=== PATIENT | male | born 1945 | race Caucasian/White ===

== ENCOUNTER 2016-08-25 13:48 | Inpatient (IN) | payer MEDICARE ==
[~2016-08-25] VITALS: Ht 179.1 cm; Wt 139.4 kg
[~2016-08-25 13:48] MED LIST: BISA5TAB12 PO; CITA40TA PO; CLONAZEPAM0.5 M1 PO; DOCU-42 PO; DUL10S RC; FURO-3 PO; ISOS60TA2 PO; LEVOXYL75 MCG PO; METH500T7 PO; NITR0.4T SL; PREG50 PO; QUET50TA PO; RANI150T13 PO; TOP200 PO; WARF6TAB2 PO; ZOC20 PO; [UNRECOGNIZED DRUG - CODE] PO; amlodipine PO
--- NOTE | 2016-08-25 14:16 | ED.REPORT ---
HPI-General Illness Date of Service Aug 25, 2016 ED Provider: Azeb Flores MD This is a 71 year old male with a history of CAD, NE, HTN, hyperlipidemia, PE, GERD, hypothyroidism, and venous insufficiency presenting to the emergency department via EMS from urgent care due to worsening shortness of breath that began 2 days ago. SOB is worse with lying position. Denies lower extremity swelling, chest pain, cough, nausea, abdominal pain, diarrhea, constipation, fever, or chills at this time. Nursing Notes Stated Complaint: SOB Nursing Notes Reviewed: Yes Allergies: Coded Allergies: vancomycin (Verified Allergy, Severe, renal failure, 11/15/15) bacitracin (Verified Allergy, Intermediate, makes the rash worse, 11/15/15) neomycin (Verified Allergy, Intermediate, makes the rash worse, 11/15/15) polymyxin B (Verified Allergy, Intermediate, makes the rash worse, 11/15/15) codeine (Verified Adverse Reaction, Mild, hyper, 02/17/11) Scheduled Amlodipine (Amlodipine) 5 Mg Tablet 5 MG PO DAILY Citalopram (Citalopram) 20 Mg Tablet 20 MG PO HS Clonazepam (Clonazepam) 0.5 Mg Tablet 0.5 MG PO HS Furosemide (Furosemide) 40 Mg Tablet 40 MG PO DAILY Isosorbide MN ER (Isosorbide MN ER) 60 Mg Tab.er.24h 60 MG PO DAILY Levothyroxine (Levothyroxine) 75 Mcg Tablet 75 MCG PO QAM Methocarbamol (Methocarbamol) 500 Mg Tablet 500 MG PO HS Metoprolol Succinate ER (Metoprolol Succinate ER) 200 Mg Tab.er.24h 200 MG PO HS Pregabalin (Lyrica) 50 Mg Capsule 50 MG PO HS Quetiapine Fumarate (Quetiapine Fumarate) 50 Mg Tablet 50 MG PO HS Ranitidine (Ranitidine) 150 Mg Capsule 150 MG PO HS Simvastatin (Simvastatin) 20 Mg Tablet 20 MG PO HS Warfarin Sodium (Warfarin Sodium) 10 Mg Tablet 10 MG PO QAM *TAKES IN AM Scheduled PRN Bisacodyl (Dulcolax) 5 Mg Tablet.dr 10 MG PO DAILY PRN PRN For Constipation Bisacodyl (Dulcolax Rectal) 10 Mg Supp.rect 10 MG RC DAILY PRN PRN For Constipation Loperamide (Loperamide) 2 Mg Tablet 2 MG PO Q4H PRN PRN For Diarrhea or Loose Stool Nitroglycerin SL (Nitroglycerin SL) 0.4 Mg Tab.subl 0.4 MG SL Q5MIN PRN PRN For Chest Pain General Time Seen by MD: 14:13 Chief Complaint Other Hx Obtained From: Patient Arrived By: Ambulance Sudden in Onset?: Yes Onset Occurred: 2 days ago Symptom Duration: Since onset Severity: Current: No pain currently Pertinent Negative: Pt denies other symptoms Recent Healthcare: No recent doctor visit, No recent hospitalization Similar Sx Previous: No Past Medical History Past Medical History 1. Coronary artery disease. 2. Prior NE. 3. Hypertension. 4. Hyperlipidemia. 5. PE 2 secondary to lupus anticoagulant on chronic warfarin (last PE 2008). 6. GERD. 7. Osteoarthritis. 8. Spinal stenosis. 9. Depression and anxiety. 10. OCD. 11. Peripheral neuropathy. 12. Hypothyroidism. 13. Insomnia. 14. Venous insufficiency. Past Surgical History 1. Left total knee arthroplasty. 2. Left rotator cuff repair. 3. Left humerus ORIF. 4. Coronary stenting 1. 5. Tonsillectomy. 6. Right hernia repair. 7. Left RFA. Family History Father who of atherosclerosis at the age of 44. Mother who of Alzheimer's disease. Sister with COPD. Smoking History Never Smoker Social History Alcohol Use: 1-3 per week Drug Use: Denies drug use Other Social History: Good social support, , Local resident Ambulatory Status Independent Review of Systems Full Review of Systems Constitutional: Denies: Chills, Fever Respiratory: Reports: Shortness of breath, Denies: Non-productive cough Cardiovascular: Denies: Chest pain GI: Denies: Abdominal pain, Nausea, Vomiting Male: Denies Dysuria Musculoskeletal: Denies: Back pain Neurologic: Denies: Headache Complete sys rev & neg: except as marked. Physical Exam Vital Signs Vital Signs Date Time Temp Pulse Resp B/P Pulse Ox O2 Delivery O2 Flow Rate FiO2 08/25/16 16:36 36.6 52 20 146/56 94 Room Air 08/25/16 14:19 36.3 51 18 147/58 98 Nasal Cannula 3 - Initial VS: Reviewed General/Constitutional: Well-developed, Well-nourished Head / Eyes: Atraumatic, Normocephalic, PERRL ENT: Mucous membranes moist, Conjunctiva normal, No scleral icterus Neck: Supple, Non-tender, Full range of motion Abdomen / GI: Soft, Non-tender, No guarding, No rebound, No distention Extremities: Vascular intact, Neuro intact, No tenderness Skin: Warm, Dry, No cyanosis Neurologic: Alert, Oriented, Nonfocal Psychiatric: Mood/affect normal, Behavior normal, Normal thought content Respiratory / Chest: No wheezing, No chest tenderness Cardiovascular: Regular rhythm, Heart sounds NL, No murmurs Lower Ext Edema: Positive: Bilateral 3+ Interpretation & Diagnostics Lab Results Interpretation Result Diagram: 08/26/16 0540 08/26/16 0540 Test 08/25/16 15:33 08/25/16 15:55 Troponin T < 0.010ug/L (0.0-0.011) Urine Color Yellow (YELLOW) Urine Appearance Clear (CLEAR,HAZY) Urine pH 6.0 (5.0-8.0) Urine Specific [place] 1.010 (1.003-1.035) Urine Protein Negativemg/dL (NEG,TRACE) Urine Glucose (UA) Negativemg/dL (NEGATIVE) Urine Ketones Negativemg/dL (NEGATIVE) Urine Occult Blood Small (NEGATIVE) Urine Nitrite Negative (NEGATIVE) Urine Bilirubin Negative (NEGATIVE) Urine Urobilinogen Normalmg/dL (NORMAL) Urine Leukocyte Esterase Negative (NEGATIVE) Urine RBC 3-10/hpf (0-2) Urine WBC 0-5/hpf (0-5) Urine Epithelial Cells Few/hpf (NONE-MOD) Urine Crystals None seen (NONE SEEN) Urine Bacteria Few/hpf (NONE-FEW) Urine Hyaline Casts None/lpf (NONE) Urine Granular Casts None seen (NONE SEEN) Urine Waxy Casts None seen (NONE SEEN) Urine Red Blood Cell Casts None seen (NONE SEEN) Urine White Blood Cell Casts None seen (NONE SEEN) Urine Mucus None seen (None Seen) Urine Trichomonas None seen (NONE SEEN) Urine Yeast None (NONE SEEN) Urinalysis Comment None Urine Culture Reflexed Not indicated ECG Interpretation ECG Interpretation: NSR at a rate of 51 Atrial premature complex Borderline prolonged FL interval Time: 15:07 X-Ray Chest Interpretation Chest Xray Interpretation: IMPRESSION: Bibasilar atelectasis versus pneumonia. Dictated by: Florinda Earl MD, PhD on 08/25/2016 at 15:32 Approved by: Florinda Earl MD, PhD on 08/25/2016 at 15:33 Re-Eval/Medical Decision Med Decision/Clinical Course presents with increased dyspnea, othopnea, elevated BNP and CXR suggestive of acute CHF. As this would be a new diagnosis of CHF, hospitalization and additional workup is warrented. Time of Eval: 17:07 Re-Evaluation/Progress Note: Discussed need for admission, all questions addressed. Consultation : Referral / Consult Name: Paul Cabrera MD Consulted With: Hospitalist Call Returned at: 17:22 Manager Balance: Accepts admit Counseled Regarding: Diagnosis, Lab results, Need for follow-up, Need for admission Discharge & Departure Primary Impression: Acute heart failure Heart failure type: unspecified heart failure type Qualified Code: I50.9 - Heart failure, unspecified Additional Impression: Chronic renal insufficiency Chronic kidney disease stage: unspecified stage Qualified Code: N18.9 - Chronic kidney disease, unspecified Disposition: ADMITTED TO HOSPITAL Discharge Condition All VS Reviewed: Yes Condition: Stable Referrals: Murphy Muñoz MD (PCP) Scribe Attestation Portions of this note were transcribed by Ismael Blood. I, Dr. Flores personally performed the history, physical exam and medical decision-making; I reviewed and confirmed the accuracy of the information in the transcribed note. Signed by: emory Reed. 08/25/2016, 18:00. copies to: Murphy Muñoz MD, Shawna L MD Aug 25, 2016 14:16 ISMAEL BLOOD Aug 25, 2016 14:20 (NEGATIVE) Urine Occult Blood Small (NEGATIVE) Urine Nitrite Negative (NEGATIVE) Urine Bilirubin Negative (NEGATIVE) Urine Urobilinogen Normalmg/dL (NORMAL) Urine Leukocyte Esterase Negative (NEGATIVE) Urine RBC 3-10/hpf (0-2) Urine WBC 0-5/hpf (0-5) Urine Epithelial Cells Few/hpf (NONE-MOD) Urine Crystals None seen (NONE SEEN) Urine Bacteria Few/hpf (NONE-FEW) Urine Hyaline Casts None/lpf (NONE) Urine Granular Casts None seen (NONE SEEN) Urine Waxy Casts None seen (NONE SEEN) Urine Red Blood Cell Casts None seen (NONE SEEN) Urine White Blood Cell Casts None seen (NONE SEEN) Urine Mucus None seen (None Seen) Urine Trichomonas None seen (NONE SEEN) Urine Yeast None (NONE SEEN) Urinalysis Comment None Urine Culture Reflexed Not indicated ECG Interpretation ECG Interpretation: NSR at a rate of 51 Atrial premature complex Borderline prolonged FL interval Time: 15:07 X-Ray Chest Interpretation Chest Xray Interpretation: IMPRESSION: Bibasilar atelectasis versus pneumonia. Dictated by: Florinda Earl MD, PhD on 08/25/2016 at 15:32 Approved by: Florinda Earl MD, PhD on 08/25/2016 at 15:33 Re-Eval/Medical Decision Time of Eval: 17:07 Re-Evaluation/Progress Note: Discussed need for admission, all questions addressed. Consultation : Referral / Consult Name: Paul Cabrera MD Consulted With: Hospitalist Call Returned at: 17:22 Manager Balance: Accepts admit Counseled Regarding: Diagnosis, Lab results, Need for follow-up, Need for admission Discharge & Departure Primary Impression: Acute heart failure Heart failure type: unspecified heart failure type Qualified Code: I50.9 - Heart failure, unspecified Additional Impression: Chronic renal insufficiency Chronic kidney disease stage: unspecified stage Qualified Code: N18.9 - Chronic kidney disease, unspecified Disposition: ADMITTED TO HOSPITAL Discharge Condition All VS Reviewed: Yes Condition: Stable Referrals: Murphy Muñoz MD (PCP) Scribe Attestation Portions of this note were transcribed by Ismael Blood. I, Dr. Flores personally performed the history, physical exam and medical decision-making; I reviewed and confirmed the accuracy of the information in the transcribed note. Signed by: emory Reed. 08/25/2016, 18:00. copies to: Murphy Muñoz MD, Shawna L MD Aug 25, 2016 14:16 ISMAEL BLOOD Aug 25, 2016 14:20
[2016-08-25 14:19] VITALS: BP 147/58; PULSE 51; RESP 18; O2SAT 98
--- NOTE | 2016-08-25 15:35 | DRSVH ---
PROCEDURE: X-RAY CHEST ONE VIEW, PORTABLE ([id number]) INDICATIONS: SOB TECHNIQUE: One view of the chest was acquired. COMPARISON: [facility], , CHEST 1VW (PORTABLE), 07/19/2011, 17:25. FINDINGS: Surgical changes and devices: Left shoulder arthroplasty. Lungs and pleura: No pleural effusions or pneumothorax. Bibasilar lung opacities are noted right gre ater than left which could represent atelectasis versus pneumonia. Elevation right hemidiaphragm stab le compared to prior examination. Mediastinum: Mediastinal contours appear normal. Heart size is normal. Bones and chest wall: No suspicious bony lesions. Overlying soft tissues appear unremarkable. IMPRESSION: Bibasilar atelectasis versus pneumonia. Dictated by: Florinda Earl MD, PhD on 08/25/2016 at 15:32 Approved by: Florinda Earl MD, PhD on 08/25/2016 at 15:33
[2016-08-25 15:52] LABS: BASOPHILS % (AUTO) 0.5 % (0-3); EOSINOPHILS % (AUTO) 1.8 % (0-5); MONOCYTES % (AUTO) 13.6 % (4-12); Mean Corpuscular Hemoglobin 30.7 pg (27.0-35.0); Mean Corpuscular Volume 94.8 fL (81-100); NEUTROPHILS % (AUTO) 64.7 % (40-74); Platelet Count 146 bil/L (150-400)
[2016-08-25 16:02] LABS: INR 1.89 ratio
[2016-08-25 16:13] LABS: TROPONIN T < 0.010 ug/L (0.0-0.011)
[2016-08-25 16:35] LABS: APPEARANCE,URINE CLEAR (CLEAR,HAZY); COLOR,URINE YELLOW (YELLOW); OCCULT BLOOD,URINE SMALL (NEGATIVE); UROBILINOGEN,URINE NORMAL (NORMAL)
[2016-08-25 16:36] VITALS: BP 146/56; PULSE 52; RESP 20; O2SAT 94
--- NOTE | 2016-08-25 17:53 | PCM.HPMED ---
Subjective Date of Service Aug 25, 2016 Primary Provider: Admitting Physician: Primary Care Physician: Valeri Zhou DO Attending Physician: Chief Complaint: Shortness of breath History of Present Illness: This is a severely is a male with past medical history of coronary artery disease and AL, obesity, hypertension, stage III CKD, hyperlipidemia, pulmonary embolus x 2 on Coumadin. Patient presented to the Hospital clinic about shortness of breath does not going on for a week or so . His today shortness of breath this was last past 2 days. He endorsed orthopnea, dyspnea on minimal exertion. She came he has gained approximately 10 pounds over the last class 2-3 weeks and has been complaining of lower extremity swelling as well. He said he did not seek medical attention initially because of shortness of breath was not that bad. He denied any chest pain, fever, chills, abdominal pain, nausea, vomiting.. ER work up shows elevated BNP, patient hypoxic on presentation with oxygen saturation around 80% , then improve with oxygen 2 L nasal cannula. Patient has no previous history of heart failure. Review of Systems: Review of systems is pertinent for shortness of breath, orthopnea, dyspnea on exertion, lower extremity swelling as described above in history of present illness otherwise a comprehensive review x 12 points is negative Allergies Coded Allergies: vancomycin (Verified Allergy, Severe, renal failure, 11/15/15) bacitracin (Verified Allergy, Intermediate, makes the rash worse, 11/15/15) neomycin (Verified Allergy, Intermediate, makes the rash worse, 11/15/15) polymyxin B (Verified Allergy, Intermediate, makes the rash worse, 11/15/15) codeine (Verified Adverse Reaction, Mild, hyper, 02/17/11) Home Medications Scheduled ([amlodipine]) 5 MG PO BID Bisacodyl-Expunged Drug, Do Not Renew! (Bisacodyl-Expunged Drug, Do Not Renew!) 10 Mg Supp 10 MG RC PRN Citalopram-Expunged Drug, Do Not Renew! (Citalopram-Expunged Drug, Do Not Renew! ) 40 Mg Tablet 20 MG PO DAILY Docusate Sod-Expunged Drug, Do Not Renew! (Docusate Sod-Expunged Drug, Do Not Renew!) 100 Mg Capsule 100 MG PO BID Furosemide-Expunged Drug, Do Not Renew! (Furosemide-Expunged Drug, Do Not Renew! ) 40 Mg Tablet 40 MG PO DAILY 40 MG DAILY Isosorbide [place]-Expunged Drug, Do Not Renew! (Isosorbide [place]-Expunged Drug, Do Not Renew!) 60 Mg Tab.sr.24h 60 MG PO DAILY Levothyroxine-Expunged Drug, Do Not Renew! (Levoxyl-Expunged Drug, Do Not Renew! ) 75 Mcg Tablet 75 MCG PO DAILY Methocarbamol-Expunged Drug, Do Not Renew! (Methocarbamol-Expunged Drug, Do Not Renew!) 500 Mg Tablet 500 MG PO DAILY Metoprolol Suc-Expunged Drug, Do Not Renew! (Metoprolol Suc-Expunged Drug, Do Not Renew!) 200 Mg Tab.sr.24h 200 MG PO DAILY Pregabalin-Expunged Drug, Do Not Renew! (Lyrica-Expunged Drug, Do Not Renew!) 50 Mg Capsule 50 MG PO DAILY Quetiapine-Expunged Drug, Do Not Renew! (Seroquel-Expunged Drug, Do Not Renew!) 50 Mg Tablet 50 MG PO HS Ranitidine Hcl (Zantac) 150 Mg Tablet 150 MG PO DAILY Simvastatin-Expunged Drug, Choose New Med! (Simvastatin-Expunged Drug, Choose New Med!) 20 Mg Tablet 20 MG PO HS Warfarin Sodium Inactive Drug Do Not Use (Coumadin Inactive Drug Do Not Use) 6 Mg Tablet 7.5 MG PO DAILY ALTERNATES BETWEEN 7.5MG AND 10MG DEPENDING ON INR clonazePAM-Expunged Drug, Do Not Renew! (clonazePAM-Expunged Drug, Do Not Renew! ) 0.5 Mg Tablet 0.5 MG PO PRN Scheduled PRN Bisacodyl-Expunged Drug, Do Not Renew! (Bisacodyl-Expunged Drug, Do Not Renew!) 5 Mg Tablet 5 MG PO DAILY PRN PRN Loperamide-Expunged Drug, Do Not Renew! (Imodium-Expunged Drug, Do Not Renew!) 2 Mg Cap 2 MG PO PRN Give 2 caps (4mg) by mouth after 1st diarrhea stool as needed, and then 1 cap as needed after each subsequent loose BM (not to exceed 6 caps/24hrs) Nitroglycerin-Expunged Drug, Do Not Renew! (Nitroglycerin SL-Expunged Drug, Do Not Renew!) 0.4 Mg Tab.subl 0.4 MG SL PRN PMH 1. Coronary artery disease. 2. Prior AL. 3. Hypertension. 4. Hyperlipidemia. 5. PE 2 secondary to lupus anticoagulant on chronic warfarin (last PE 2008). 6. GERD. 7. Osteoarthritis. 8. Spinal stenosis. 9. Depression and anxiety. 10. OCD. 11. Peripheral neuropathy. 12. Hypothyroidism. 13. Insomnia. 14. Venous insufficiency. Surgical History 1. Left total knee arthroplasty. 2. Left rotator cuff repair. 3. Left humerus ORIF. 4. Coronary stenting 1. 5. Tonsillectomy. 6. Right hernia repair. 7. Left RFA. Family History Father who of atherosclerosis at the age of 44. Mother who of Alzheimer's disease. Sister with COPD. Social History Hx Alcohol Use: Yes (MAYBE THREE TIMES A WEEK) Hx Substance Use: No Hx Tobacco Use: No Smoking Status: Never Smoker Living Arrangement: with Family Exam Vital Signs Vital Sign - Last Date Time Temp Pulse Resp B/P Pulse Ox O2 Delivery O2 Flow Rate FiO2 08/25/16 16:36 36.6 52 20 146/56 94 Room Air 08/25/16 14:19 3 Exam General/Constitutional: Obese male, and stretcher comfortably. On oxygen per nasal cannula and able to speak in full sentences Head / Eyes: Atraumatic, Normocephalic, PERRL, sclerae anicteric Mouth: Mucous membranes moist Neck: Supple, Non-tender, Full range of motion. No JVD, trachea is midline Chest : No chest wall tenderness, normal respiratory efforts Lungs: No wheezing, bilateral fine crackles in the basilar area Cardiovascular: Regular rhythm, Heart sounds NL, No murmurs Abdomen / GI: Obese, Soft, Non-tender, No guarding, No rebound, No distention Extremities: Chronic venous stasis changes, no calf tenderness. 2+ edema a bilaterally Skin: Warm, Dry, No cyanosis Neurologic: Alert, Oriented, grossly Nonfocal Lab and Diagnostics Result Diagram: 08/25/16 1533 08/25/16 1533 X-Rays, CTs and MRIs Checks x-ray personally reviewed. Report noted: Bibasilar atelectasis versus pneumonia. Assessment & Plan 1. Acute systolic failure with hypoxia 2. Suspected systolic heart failure 3. Bilateral lower extremity edema 4. Elevated BNP 5. Bilateral basilar artery passes versus pneumonia Chronic medical issues 1. Coronary artery disease. 2. Prior AL. 3. Hypertension. 4. Hyperlipidemia. 5. PE 2 secondary to lupus anticoagulant on chronic warfarin (last PE 2008). 6. GERD. 7. Osteoarthritis. 8. Spinal stenosis. 9. Depression and anxiety. 10. OCD. 11. Peripheral neuropathy. 12. Hypothyroidism. 13. Insomnia. 14. Venous insufficiency. 15 : CKD stage III Admitting patient for hypoxic respiratory failure and suspected new onset of systolic heart failure. Chest x-ray reviewed and show bilateral atelectasis versus pneumonia, but patient has no clinical evidence of pneumonia. Telemetry monitoring. Strict I's and O, daily weight, fluid restriction to 2 L daily. Start diuretics : Furosemide 40 mg IV twice a day. Monitor electrolyte and renal function closely. Patient has nonrestorative CTD stage III. Baseline creatinine is around 1.8-2 Obtain 2-D echocardiogram. Consider cardiology evaluation if low ER. Add ARB or ACEI accordingly ,.Patient on BB and statins from home. Obtain TSH, and hemoglobin A1c, lipid profile. Patient with history of PE on Coumadin. INR non therapeutic ( 1.8) . Continue Coumadin per pharmacy Home medications reviewed and reconciled ( See orders) Code status : Full code . Initial plan of care is as above and to be adjusted as per clinical course Pain Evaluation: Adequate Pain Control Resuscitation Status: CPR: Attempt Resuscitation Time spent 75 minutes Paul Cabrera MD Aug 25, 2016 17:53
[2016-08-25] MEDS ORDERED: AMLO5TAB2 PO (18:55)
[2016-08-25] MEDS ORDERED: WARF10TA4 PO (18:55)
[2016-08-25] MEDS ORDERED: LEVO75TA4 PO (18:57)
[2016-08-25] MEDS ORDERED: FURO40TA4 PO (18:57)
[2016-08-25] MEDS ORDERED: KLO5T PO (18:57)
[2016-08-25] MEDS ORDERED: CITA20TA11 PO (18:57)
[2016-08-25] MEDS ORDERED: ISOS60TA2 PO (18:57)
[2016-08-25] MEDS ORDERED: ROB500 PO (19:00)
[2016-08-25] MEDS ORDERED: RANI150C4 PO (19:00)
[2016-08-25] MEDS ORDERED: QUET50TA55 PO (19:00)
[2016-08-25] MEDS ORDERED: SIMV20TA4 PO (19:00)
[2016-08-25] MEDS ORDERED: LOPE2TAB32 PO (19:00)
[2016-08-25] MEDS ORDERED: METO200T32 PO (19:00)
[2016-08-25] MEDS ORDERED: PREG75CA PO (19:00)
[2016-08-25] MEDS ORDERED: NITR0.4T6 SL (19:01)
[2016-08-25] MEDS ORDERED: PREG50CA PO (19:01)
[2016-08-25] MEDS ORDERED: BISA-67 PO (19:03)
[2016-08-25] MEDS ORDERED: BISA10SU61 RC (19:03)
[2016-08-25 20:11] VITALS: BP 186/86; PULSE 53; RESP 20; O2SAT 93
--- NOTE | 2016-08-25 20:41 | PCM.PHAPRO ---
Progress Date of Service: Aug 25, 2016 Shortness of breath Warfarin Management Per Pharmacy: Indication: Thromboprophylaixs as patient has history of pulmonary embolism x 2 Goal INR: 2-3 Home Dose: Warfarin 10 mg PO daily (pt states it is a white pill) Labs: Hgb/Hct: 12.4/38.3 Plt: 146 INR: 1.89 Drug Interactions: None Drug Disease Interactions: CHF exacerbation, no liver enzyme elevation Antiplatelets: None Bleeding: No Recommendation: INR is subtherapeutic. Patient to receive an additional 4 mg tonight (14 mg total accounting for the 10 mg patient took in the AM). Pharmacy to continue to monitor and adjust warfarin as needed. INR ordered daily. Thank You, Linda Stevenson, Pharm D. Linda Stevenson Aug 25, 2016 20:41
[2016-08-25] MEDS: Furosemide 10 mg/mL 4 mL Inj IVPUSH SCH (21:20)
[2016-08-25 21:54] VITALS: PULSE 58
[2016-08-26] VITALS (9 sets, daily range): BP systolic 154–184; BP diastolic 71–93; PULSE 55–64; RESP 17–20; O2SAT 91–95
--- NOTE | 2016-08-26 02:50 | NUR ---
Arrival to Room 1020 Patient arrived to room 1020 at 1920 via [facility] accompanied by ED staff. Patient alert and oriented x3. Patient is hypertensive but asymptomatic. Patient requested crackers and juice. No n/v. Lasix 40mg IVP administered . Patient oriented to room. Patient states no pain.Call light within reach. Care continues.
--- NOTE | 2016-08-26 06:08 | PCM.PNMED ---
Subjective Date of Service Aug 26, 2016 Subjective patient states he was sick with flu like illness 2 weeks ago, feels he has fully recovered. He has been dyspneic for 5 days. Never had CHF exacerbation before. Sees Dr. Silveira. Says he had good UOP last night (2.3L per records). He feels his 2015 echo was "good". He has had a stent put in after PR in 1999. At baseline only walks a block due to knee and back pain. He denies fevers, diarrhea, nausea, constipation. States he was able to lay flat on his bed this morning, 2 days ago he could not. Exam Vital Signs Vital Sign - Last Date Time Temp Pulse Resp B/P Pulse Ox O2 Delivery O2 Flow Rate FiO2 08/26/16 04:33 36.5 62 20 184/93 92 Room Air 08/26/16 00:22 1.00 Intake and Output 08/25/16 08/25/16 08/26/16 Cumulative From/Thru 15:00 23:00 07:00 08/25/16 14:19 - 08/25/16 21:20 Output Total 500 ml 500 ml Balance -500 ml -500 ml Output Urine Total 500 ml 500 ml # Voids 1 1 Exam General: NAD HEENT: NCAT Heart: 2+ systolic murmur with radiation to neck, RRR Lungs: Dullness on RLL, no crackles or wheezing Abd: Soft, NT/ND Ext: 1+ edema, L>R Vasc: Neg for JVD, neg hepatojugular reflux Neuro: No focal deficits IVs and Medications Medications Reviewed: Medications were reviewed in detail Lab and Diagnostics Laboratory Tests Test 08/26/16 05:40 White Blood Count 7.1th/mm3 (3.8-10.1) Red Blood Count 4.23mil/mm3 (4.40-5.80) Hemoglobin 13.2g/dL (13.8-17.2) Hematocrit 39.9% (41.0-50.0) Mean Corpuscular Volume 94.3fL (81-100) Mean Corpuscular Hemoglobin 31.2pg (27.0-35.0) Mean Corpuscular Hemoglobin Concent 33.1% (32.0-37.0) Red Cell Distribution Width 14.4% (12.3-15.4) Platelet Count 149bil/L (150-400) Neutrophils (%) (Auto) 67.6% (40-74) Lymphocytes (%) (Auto) 17.4% (14-46) Monocytes (%) (Auto) 12.0% (4-12) Eosinophils (%) (Auto) 2.5% (0-5) Basophils (%) (Auto) 0.4% (0-3) Prothrombin Time 20.8sec (8.1-12.5) Prothromb Time International Ratio 1.92ratio Sodium Level 145mEq/L (134-144) Potassium Level 4.7mEq/L (3.5-5.2) Chloride Level 104mEq/L (97-108) Carbon Dioxide Level 22mmol/L (18-29) Blood Urea Nitrogen 26mg/dL (8-27) Creatinine 1.62mg/dL (0.76-1.27) Estimat Glomerular Filtration Rate 45mL/min (>59) Glucose Level 94mg/dL (60-99) Calcium Level 9.0mg/dL (8.5-10.1) Total Bilirubin 1.3mg/dL (0.0-1.2) Aspartate Amino Transf (AST/SGOT) 27U/L (0-50) Alanine Aminotransferase (ALT/SGPT) 21U/L (0-44) Alkaline Phosphatase 85U/L (25-160) Pro-B-Type Natriuretic Peptide 4354pg/mL (0-376) Total Protein 6.8g/dL (6.4-8.4) Albumin 3.9g/dL (3.4-5.0) Triglycerides Level 115mg/dL (0-149) Cholesterol Level 158mg/dL (100-199) LDL Cholesterol, Calculated 95.000mg/dL (0-99) VLDL Cholesterol 23.000mg/dL HDL Cholesterol 40mg/dL (>39) Cholesterol/HDL Ratio 3.95 (0.0-4.4) Thyroid Stimulating Hormone (TSH) 1.730uIU/mL (0.450-4.500) Result Diagram: 08/25/16 1533 08/25/16 1533 X-Rays, CTs and MRIs Checks x-ray personally reviewed. Report noted: Bibasilar atelectasis versus pneumonia. Cardiac Echo Impressions Echocardiogram Report Name: DOLORES ROCK LStudy [place] e: 08/26/2016 Height: 70 in Hospital Exam Location: [facility] Weight: 303 lb Gender: Male BSA: 2.5 m2 : 1945 Age: 71 yrs BP: 184/93 mmHg Reason For Study: SOB Ordering Physician: Performed By: Serena [facility] Interpretation Summary The left ventricle is normal in size. Left ventricular systolic function is borderline reduced. The ejection fraction is estimated to be 50-55%. There has been no significant change since the previous study. There are no focal wall motion abnormalities. Assessment of diastolic parameters suggests a pseudonormalization pattern, consistent with elevated filling pressures. The right ventricle is mildly dilated. Right ventricular systolic function is mildly reduced. The right ventricular systolic pressure is estimated at at least 43 mmHg assuming a right atrial pressure of 3 mm Hg. The left atrium is moderately dilated. Right atrial size is normal. There is moderate mitral regurgitation. There is mild to moderate aortic stenosis. There has been no significant change since the previous study. The peak aortic velocity is 2.24 m/sec. The peak aortic velocity on the previous exam was 2.0 m/sec. The aortic valve area is 1.4 centimeters squared by planimetry. There is mild aortic regurgitation. This is unchanged compared to the previous study. There is no other significant valvular heart disease. The ascending aorta is mildly enlarged. Assessment & Plan Pending 1. Acute on chronic systolic failure with hypoxia: -- Echocardiogram revealed no significant drop in EF. -- Lasix 40 mg IV BID -- nitro bid 2% paste 1/2 inch Q24H with parameters -- Daily weights and strict I and O -- Elevate head of bed -- Hold Lasix -- Telemetry monitoring continue home statin and beta jeannette -- Lipid panel ordered shows elevated cholesterol to HDL ratio -- TSH within normal -- A1c pending 2. Bilateral basilar artery passes versus pneumonia: Clinically he does not appear to be having pneumonia. He has no fevers and white count and no cough. We will continue to monitor Chronic medical issues 1. Coronary artery disease.: Continue medications 2. Prior PR. 3. Hypertension: Continue home medications . 4. Hyperlipidemia: Continue home medications 5. PE 2 secondary to lupus anticoagulant on chronic warfarin (last PE 2008): Continue home medications 6. GERD continue medications: 7. Osteoarthritis. 8. Spinal stenosis. 9. Depression and anxiety continue home medications: 10. OCD. 11. Peripheral neuropathy.: Continue medications 12. Hypothyroidism. 13. Insomnia. 14. Venous insufficiency. 15 : CKD stage III Code status : Full code VTE Mechanical Devices: Intermittant Pneumatic CD Resuscitation Status: CPR: Attempt Resuscitation Danielle Bundy DO Aug 26, 2016 06:08
[2016-08-26 06:10] LABS: BASOPHILS % (AUTO) 0.4 % (0-3); EOSINOPHILS % (AUTO) 2.5 % (0-5); Mean Corpuscular Hemoglobin 31.2 pg (27.0-35.0); Mean Corpuscular Volume 94.3 fL (81-100); NEUTROPHILS % (AUTO) 67.6 % (40-74); Platelet Count 149 bil/L (150-400)
[2016-08-26] MEDS: Furosemide 10 mg/mL 4 mL Inj IVPUSH SCH ×2 (06:22→17:26)
[2016-08-26 06:37] LABS: INR 1.92 ratio
[2016-08-26] MEDS ORDERED: Nitroglycerin 2% 1 Gm Ointment TOPICAL SCH ×2 (08:25→09:51)
[2016-08-26] MEDS: Isosorbide Mononitrate 30 mg ER24 Tablet PO SCH (09:15)
--- NOTE | 2016-08-26 11:33 | PCM.PHAPRO ---
Progress Date of Service: Aug 26, 2016 Shortness of breath Warfarin Management Per Pharmacy: Indication: hx of PE x2 Goal INR: 2-3 Home warfarin dose: 10 mg daily Date Aug 26-Aug INR 1.89 1.92 INR change 0.03 Warf Dose 4 mg (in addition to 10 mg at home) xxxx Pertinent information: admitted for CHF exacerbation. INR remains subtherapeutic. Will give another bolus dose to get INR into therapeutic range. Give warfarin 12 mg PO today at 1700. Pharmacy to continue to monitor and dose warfarin daily. Thank you, Jossy Bonner Aug 26, 2016 11:33
--- NOTE | 2016-08-26 13:18 | NUR ---
Ambulation / HTN Pt ambulating to chair and bathroom with steady gait. HTN continues MDs aware. Nitro Paste used. Care continues
--- NOTE | 2016-08-26 13:53 | NUR ---
Social Work- Initial Assessment Data: See Initial Assessment. Pt is a 71 year old male admitted 08/25/16 for acute CHF per H&P. Pt's insurance is [employer]. Pt's PCP is Valeri Zhou DO. EMR reviewed. SW met with pt regarding discharge plan. Pt alert and oriented. SW met with pt at bedside regarding discharge plan, SW role explained. Pt resides in [place] with his where he remains independent at base. Pt uses no DME and drives. Pt has no HH history. Pt has [facility] history as a rehab patient in the fall of 2010. Pt has no LTC insurance but has VA benefits. Pt has DPOA completed but not on file. SW encouraged pt to bring copy to the hospital. DPOA is Tatiana Gonzalez, . Pt to discharge home with to transport via POV. No anticipated discharge needs. SW will continue to follow. Assessment: Pt who [place] base. Plan: Pt to discharge home with to transport via POV. No anticipated discharge needs. SW will continue to follow. SINDY Agrawal Addendum: 08/26/16 at 1403 by NORI SANCHEZ Amended: Links added.
--- NOTE | 2016-08-26 17:13 | DRSVH ---
[facility] [address] [place] [address] Echocardiogram Report Name: DOLORES ROCKudpatti Michoacano e: 08/26/2016 Height: 70 in Hospital Exam Location: [facility] Weight: 303 lb Gender: Male BSA: 2.5 m2 : 1945 Age: 71 yrs BP: 184/93 mmHg Reason For Study: SOB Ordering Physician: Performed By: Serena [facility] Interpretation Summary The left ventricle is normal in size. Left ventricular systolic function is borderline reduced. The ejection fraction is estimated to be 50-55%. There has been no significant change since the previous study. There are no focal wall motion abnormalities. Assessment of diastolic parameters suggests a pseudonormalization pattern, consistent with elevated filling pressures. The right ventricle is mildly dilated. Right ventricular systolic function is mildly reduced. The right ventricular systolic pressure is estimated at at least 43 mmHg assuming a right atrial pressure of 3 mm Hg. The left atrium is moderately dilated. Right atrial size is normal. There is moderate mitral regurgitation. There is mild to moderate aortic stenosis. There has been no significant change since the previous study. The peak aortic velocity is 2.24 m/sec. The peak aortic velocity on the previous exam was 2.0 m/sec. The aortic valve area is 1.4 centimeters squared by planimetry. There is mild aortic regurgitation. This is unchanged compared to the previous study. There is no other significant valvular heart disease. The ascending aorta is mildly enlarged. Procedure: A two-dimensional transthoracic echocardiogram with color flow and Doppler was performed. The study quality was technically adequate. Comparison is made with the echocardiogram of 10/27/14. A contrast injection of Definity was performed to improve assessment of LV function. The patient was in normal sinus rhythm during the exam. Left Ventricle: The left ventricle is normal in size. There is mild asymmetric left ventricular hypertrophy. Left ventricular systolic function is borderline reduced. The ejection fraction is estimated to be 50-55%. There has been no significant change since the previous study. There are no focal wall motion abnormalities. Assessment of diastolic parameters suggests a pseudonormalization pattern, consistent with elevated filling pressures. Right Ventricle: The right ventricle is mildly dilated. Right ventricular systolic function is mildly reduced. Atria: The left atrium is moderately dilated. Right atrial size is normal. There is no Doppler evidence for an interatrial shunt. Mitral Valve: The mitral valve leaflets appear thickened, but open well. There is mild mitral annular calcification. There is moderate mitral regurgitation. Aortic Valve: The aortic valve is moderately calcified. Leaflet mobility is moderately reduced. There is mild to moderate aortic stenosis. There has been no significant change since the previous study. The peak aortic velocity is 2.24 m/sec. The aortic valve mean gradient is 11.8 mmHg. The aortic valve area is 1.4 centimeters squared by planimetry. The severity ratio is0.33. The peak aortic velocity on the previous exam was 2.0 m/sec. There is mild aortic regurgitation. This is unchanged compared to the previous study. Tricuspid Valve: The tricuspid valve is normal in structure and function. There is trace tricuspid regurgitation. The right ventricular systolic pressure is estimated at at least 43 mmHg assuming a right atrial pressure of 3 mm Hg. Pulmonic Valve: The pulmonic valve is not well visualized. There is mild pulmonic regurgitation. There is no other significant valvular heart disease. Great Vessels: The aortic root is normal size. The ascending aorta is mildly enlarged. The aortic arch is normal in size. The pulmonary artery is not well visualized, but is probably normal size. The inferior vena cava was not visualized. Pericardium/ Pleura There is no pericardial effusion. There is no pleural effusion. MMode/2D Measurements & Calculations LVIDd LA dimension: 5.0 cm RA long axis: 5.5 cm LVOT diam: 2.4 cm : 5.7 cm AoV Openin.4 cm LVIDs LA A2 area: 24.7 cm RA area: 18.4 cm Ao root diam : 4.0 cm LA A4 area: 32.2 cm RA vol: 52.3 ml FS: 29.0 % LA length (vol) RA : 21.0 ml/m asc Aorta Diam IVSd: 1.2 cm RVDd major: 7.5 cm LVPWd LA vol: 113.8 ml Ao Arch Diam (Prox : 1.0 cm LA vol index Trans): 3.0 cm : 45.7 ml/m2 JAN (plan) LV morel. diameter/BSA LV sys. diameter/BSA RVD1 (basal) : 1.4 cm2 (cm/m^2): 2.3 (cm/m^2): 1.6 : 5.3 cm RVD2 (mid) : 5.2 cm Doppler Measurements & Calculations Ao V2 max MV E max filipe MV E/A: 1.8 TR max filipe : 224.1 cm/sec : 105.5 cm/sec Med Peak E' Filipe : 316.5 cm/sec Ao max PG MV A max filipe TR max PG : 20.1 mmHg : 57.3 cm/sec E/E' med: 28.3 : 40.1 mmHg Ao mean PG MV P1/2t: 72.2 msec Lat Peak E' Filipe PA V2 max : 11.8 mmHg : 91.5 cm/sec LVOT Max Filipe E/E' lat: 24.5 PA mean PG : 67.7 cm/sec E/e' average: 26.4 JAN(I,D): 1.4 cm Pulm A Revs Dur PA Accel Time sev ratio : 0.11 sec MV A dur: 0.13 sec AI P1/2t : 683.0 msec AI dec slope : 162.2 cm/s2c MV dec time MV P1/2t max filipe Ao V2 mean LV V1 max PG : 0.25 sec : 159.6 cm/sec Ao V2 VTI: 58.5 cm LV V1 VTI MVA(P1/2t): 3.0 cm2 : 19.4 cm JAN(V,D): 1.3 cm2 PA V2 mean JAN indexed to BSA Pulm A Revs Dur - MV : 63.5 cm/sec (cm^2/m^2): 0.58 A Dur: -0.01 msec Reading Physician:DAVID
--- NOTE | 2016-08-26 23:48 | NUR ---
ACTIVITY: During initial assessment pt. was sitting on the edge of his bed watching TV, later on he got up and went to the bathroom to have a BM, voiding independently per urinal. Denies pain or any discomfort. On going care.
[2016-08-27] VITALS (10 sets, daily range): BP systolic 156–190; BP diastolic 66–86; PULSE 60–85; RESP 15–18; O2SAT 93–95
--- NOTE | 2016-08-27 05:37 | PCM.DIMED ---
Discharge Instructions Date of Service Aug 27, 2016 Dates of Hospitalization Aug 25, 2016 at 18:41 Discharge Diagnosis Discharge Diagnosis acute on chronic CHF diastolic, HTN, GERD Diet Low fat, Low Sodium, Heart Healthy Activity No restrictions Call your provider Fever or Chills, Shortness of breath, Bleeding, Chest pain, Vomitting, Excessive diarrhea, Weakness (unilateral) Patient Instructions Low salt diet Please note your HTN medications have changed:amlodipine is 10 mg QD, Metoprolol succinate 50 mg QD. . New medication spiranolactone 25 mg is added Follow-up plan Please see Dr. Silveira in one week Follow-up with PCP in: 1 week Danielle Bundy DO Aug 27, 2016 05:36
[2016-08-27] MEDS: Isosorbide Mononitrate 30 mg ER24 Tablet PO SCH (06:10)
[2016-08-27 06:54] LABS: BASOPHILS % (AUTO) 0.5 % (0-3); EOSINOPHILS % (AUTO) 1.6 % (0-5); MONOCYTES % (AUTO) 8.9 % (4-12); Mean Corpuscular Hemoglobin 30.6 pg (27.0-35.0); Mean Corpuscular Volume 90.1 fL (81-100); NEUTROPHILS % (AUTO) 67.2 % (40-74); Platelet Count 167 bil/L (150-400)
[2016-08-27 07:02] LABS: INR 2.7 ratio
[2016-08-27] MEDS ORDERED: Ranitidine 15 mg/mL 473 mL Syrup PO SCH (08:40)
[2016-08-27] MEDS ORDERED: 0.9% Sodium Chloride 100 ML ONE (09:28)
--- NOTE | 2016-08-27 12:23 | PCM.PHAPRO ---
Progress Date of Service: Aug 27, 2016 Shortness of breath Warfarin Management Per Pharmacy: Indication: hx of PE x2 Goal INR: 2-3 Home warfarin dose: 10 mg daily Pertinent information: admitted for CHF exacerbation. Date Aug 26-Aug 27-Aug INR 1.89 1.92 2.7 INR change 0.03 0.78 Warf Dose 4 mg (in addition to 10 mg at home 12 mg xxxx INR is therapeutic. Will resume home dose. Give warfarin 10 mg PO today at 1700. Pharmacy to continue to monitor and dose warfarin daily. Thank you, Jossy Beyer Pharmacist Jossy Beyer Aug 27, 2016 12:22
[2016-08-27] MEDS: MeTOProlol XL 50 mg ER24 Tablet PO SCH (14:50)
--- NOTE | 2016-08-27 16:15 | CONS ---
[address] [address] CONSULTATION REPORT PATIENT: DOLORES ROCK : 1945 MR#: [id number] ADMIT: 08/25/2016 JOB ID: [id number] DATE OF SERVICE: 08/27/2016 CARDIOLOGY CONSULTATION: CHIEF COMPLAINT: The patient came in with increased shortness of breath. HISTORY OF PRESENT ILLNESS: The patient is a 71-year-old man with past medical history significant for hypertension, history of pulmonary embolus on chronic Coumadin given history of hypercoagulability. He also has a history of chronic kidney disease and hyperlipidemia. He has been seen in Cardiology in 2014. At that time he was complaining of chronic shortness of breath. He did have pulmonary function test that suggested a moderate to severe restrictive pattern with a possible mild superimposed obstructive pattern. This could been related to the patient's elevated weight. There was a small decrease in the diffusion capacity. He also had echocardiogram at that time which showed overall preserved LV systolic function with some dilation of the right ventricle with at least mildly reduced systolic function. Pulmonary pressures were mildly elevated at that time. The patient has been followed in the resident clinic and was seen not too long ago with a very good blood pressure and some orthopedic complaints. However, he over the last couple of weeks has been feeling increasing shortness of breath. He finally went to the ED where it was assessed and they felt that he was in heart failure. Since being admitted he has diuresed and lost about 4 L of fluid and he feels much better at this time. He has chronic lower extremity edema which has not changed. He denies any problems with chest pain, chest pressure, palpitations, presyncope or syncope. Also back in 2014, he had a monitor report that showed an average heart rate was 54 beats per minute with a minimum of 47 beats per minute at 7:25 in the morning. He had one short run of ventricular tachycardia which was asymptomatic. Symptoms were correlated with sinus rhythm as well as PVCs. At the current admission, his metoprolol has been held probably for concerns of relative bradycardia, but his blood pressures have been elevated. He tells me he has been very compliant with his medications and blood pressures have not been elevated. With his current admission, he had an echocardiogram performed that showed normal LV systolic function with EF estimated in the range of 50%-55% with no focal wall motion abnormalities. The right ventricle was mildly dilated. Right ventricular systolic function was mildly reduced and the estimated right ventricular systolic pressure was 43 mmHg. Mitral regurgitation was reported as moderate. Again he feels better at this time. He has not walked around the halls to see how well he feels. However, his blood pressures again have been elevated and we are planning on getting him back on a dose of metoprolol. PAST MEDICAL HISTORY/PROBLEM LIST: 1. History of hypertension. 2. History of pulmonary embolism. 3. History of coronary artery disease with history of a stent with a cardiac catheterization performed in 2001 that showed diffuse nonobstructive disease. 4. History of knee replacements. 5. History of obstructive sleep apnea but unable to tolerate CPAP. 6. Depression and anxiety. 7. Hypothyroidism. 8. Venous insufficiency. HOME MEDICATIONS: Included: 1. Amlodipine. 2. Furosemide. 3. Isosorbide. 4. Levothyroxine. 5. Methocarbamol. 6. Metoprolol succinate 200 mg daily. 7. Quetiapine 8. Ranitidine. 9. Simvastatin. 10. Warfarin. ALLERGIES TO: 1. VANCOMYCIN. 2. BACITRACIN. 3. NEOMYCIN. 4. POLYMYXIN. 5. CODEINE. SOCIAL HISTORY: No tobacco use. No significant alcohol use. FAMILY HISTORY: Father of atherosclerosis. Mother had Alzheimer disease. Sister with COPD. REVIEW OF SYSTEMS: Overall health: No fevers, night sweats or weight loss. GI: No problems with ulcers, blood in the stool. : No dysuria, hematuria. Has chronic kidney disease. Pulmonary: Increased shortness of breath. Neuro: No chronic headaches. Derm: No rashes or skin breakdown. Heme: No easy bruising or bleeding. Musculoskeletal: No new joint pain or swelling. ENT: No difficulty swallowing or sore throat. Ophtho: No vision changes. Psych: No acute issues. Endocrine: No heat or cold intolerance. All other review of systems on a 12-point review of systems are negative. PHYSICAL EXAMINATION: Blood pressure is 156/68, heart rate is 64, sats are 93% on room air. General: In no acute distress. Speaking in full sentences without apparent shortness of breath. Head and neck examination: Normocephalic. Neck is thick, very difficult to appreciate if JV distention is present. Trachea midline. Chest: Normal respiratory efforts. I do not hear any obvious crackles or wheezes anteriorly. In the basal area, there is a little bit of occasional crackle appreciated. Heart examination: Regular rate and rhythm. No obvious murmurs, gallops or rubs appreciated. Abdomen: Soft, nontender. Back: No CVA tenderness to palpation. Extremities: Chronic venous stasis changes. Skin: Without breakdown appreciated. Neuro: Alert and oriented x3. Gait not tested. Psych: Appropriate mood and affect. ENT: mucous membranes moist. Optho - grossly intact ENT: Mucous membranes moist. No erythema. Vision grossly intact. A chest x-ray was read as bibasal atelectasis versus pneumonia, although the feeling is that he has heart failure. LABORATORIES: Show white count 6.3, H and H 14.2 and 41.8, platelets 167,000. Chemistry shows sodium 142, potassium 4.1, chloride and bicarbonate 101 and 24.6. BUN and creatinine 22 and 1.48, which is actually improved from admission. Troponins are not elevated. ProBNP is in the range of 4744-9580. Bilirubin is somewhat elevated even compared to admission. INR was initially 1.9 and now 2.7. IMPRESSION: The patient has increased shortness of breath over the past couple of weeks. He has a fairly normal echo but evidence for diastolic dysfunction. Potential causes could have been hypertension, contribution of untreated sleep apnea, possible dietary indiscretion or perhaps poor control of his high blood pressure, although he tells me it has always been good. Theoretically, question of pulmonary embolism would be in the differential although he is chronically anticoagulated. He does not seem to have any new acute RV changes and his PA pressures are only mild to moderately elevated at this time. PLANS AND RECOMMENDATION: 1. I would get him back on his metoprolol at some dose to see if that helps him with his blood pressure. We will follow his heart rates and see if he can go up to his original home dose. 2. We are continuing his home doses of medications. 3. Consider addition of another diuretic such as chlorthalidone to help with blood pressure. 4. I believe he is on telemetry and I will review that to see if there is any evidence for arrhythmias that could be also causing his current problems. One hour was spent reviewing the patient's current and old chart notes as well as speaking with an examining the [facility]
--- NOTE | 2016-08-27 21:28 | PCM.PNMED ---
Subjective Date of Service Aug 27, 2016 Subjective Patient is seen and examined. He states he is nauseated and upon questioning him further it appears that he did not receive his home medication ranitidine. We offered this to him and afterwards he felt much better. He is concerned about his elevated blood pressures and explained to him that it will take some time to bring it under control with by mouth medications. Otherwise he is doing well he is not dyspneic he is able to lay flat, not needing oxygen. Patient was seen by Dr. Sandoval range aid in 3-4 years ago but he has not had a recent follow-up. He has been seen at the residency clinic thereafter. Exam Vital Signs Vital Sign - Last Date Time Temp Pulse Resp B/P Pulse Ox O2 Delivery O2 Flow Rate FiO2 08/27/16 20:00 36.7 66 17 181/86 95 Room Air 08/26/16 00:22 1.00 Intake and Output 08/26/16 08/26/16 08/27/16 Cumulative From/Thru 15:00 23:00 07:00 08/25/16 14:19 - 08/27/16 06:01 Intake Total 1236 ml 636 ml 2172 ml Output Total 2875 ml 2100 ml 7775 ml Balance -1639 ml -1464 ml -5603 ml Intake Oral 1236 ml 636 ml 2172 ml IV Total 0 ml 0 ml Output Urine Total 2875 ml 2100 ml 7775 ml # Voids 1 # Bowel Movements 0 1 1 Exam Gen.: No acute distress HEENT: Large neck Heart: Soft systolic murmur: Regular rate and rhythm Lungs: CTA no crackles or wheezes Abdomen obese, normal bowel sounds Lower extremities: Trace edema is present Neck: Negative for JVD, negative for hepatojugular reflux Psychiatric negative for anxiety Neuro no focal deficits IVs and Medications Medications Reviewed: Medications were reviewed in detail Lab and Diagnostics Laboratory Tests Test 08/27/16 06:23 08/27/16 06:35 White Blood Count 6.3th/mm3 (3.8-10.1) Red Blood Count 4.64mil/mm3 (4.40-5.80) Hemoglobin 14.2g/dL (13.8-17.2) Hematocrit 41.8% (41.0-50.0) Mean Corpuscular Volume 90.1fL (81-100) Mean Corpuscular Hemoglobin 30.6pg (27.0-35.0) Mean Corpuscular Hemoglobin Concent 34.0% (32.0-37.0) Red Cell Distribution Width 14.1% (12.3-15.4) Platelet Count 167bil/L (150-400) Neutrophils (%) (Auto) 67.2% (40-74) Lymphocytes (%) (Auto) 21.5% (14-46) Monocytes (%) (Auto) 8.9% (4-12) Eosinophils (%) (Auto) 1.6% (0-5) Basophils (%) (Auto) 0.5% (0-3) Prothrombin Time 29.5sec (8.1-12.5) Prothromb Time International Ratio 2.70ratio Sodium Level 142mEq/L (134-144) Potassium Level 4.0mEq/L (3.5-5.2) Chloride Level 101mEq/L (97-108) Carbon Dioxide Level 24mmol/L (18-29) Blood Urea Nitrogen 22mg/dL (8-27) Creatinine 1.48mg/dL (0.76-1.27) Estimat Glomerular Filtration Rate 50mL/min (>59) Glucose Level 103mg/dL (60-99) Calcium Level 9.2mg/dL (8.5-10.1) Total Bilirubin 1.7mg/dL (0.0-1.2) Aspartate Amino Transf (AST/SGOT) 29U/L (0-50) Alanine Aminotransferase (ALT/SGPT) 23U/L (0-44) Alkaline Phosphatase 95U/L (25-160) Total Protein 7.2g/dL (6.4-8.4) Albumin 4.2g/dL (3.4-5.0) Troponin T 0.011ug/L (0.0-0.011) Pro-B-Type Natriuretic Peptide 6004pg/mL (0-376) Result Diagram: 08/27/1662208/27/16622 X-Rays, CTs and MRIs Checks x-ray personally reviewed. Report noted: Bibasilar atelectasis versus pneumonia. Cardiac Echo Impressions Echocardiogram Report Name: DOLORES ROCK LStudy [place] e: 08/26/2016 Height: 70 in Hospital Exam Location: [facility] Weight: 303 lb Gender: Male BSA: 2.5 m2 : 1945 Age: 71 yrs BP: 184/93 mmHg Reason For Study: SOB Ordering Physician: Performed By: [facility] Interpretation Summary The left ventricle is normal in size. Left ventricular systolic function is borderline reduced. The ejection fraction is estimated to be 50-55%. There has been no significant change since the previous study. There are no focal wall motion abnormalities. Assessment of diastolic parameters suggests a pseudonormalization pattern, consistent with elevated filling pressures. The right ventricle is mildly dilated. Right ventricular systolic function is mildly reduced. The right ventricular systolic pressure is estimated at at least 43 mmHg assuming a right atrial pressure of 3 mm Hg. The left atrium is moderately dilated. Right atrial size is normal. There is moderate mitral regurgitation. There is mild to moderate aortic stenosis. There has been no significant change since the previous study. The peak aortic velocity is 2.24 m/sec. The peak aortic velocity on the previous exam was 2.0 m/sec. The aortic valve area is 1.4 centimeters squared by planimetry. There is mild aortic regurgitation. This is unchanged compared to the previous study. There is no other significant valvular heart disease. The ascending aorta is mildly enlarged. Assessment & Plan Pending 1. Acute on chronic systolic failure with hypoxia: -- Echocardiogram revealed no significant drop in EF. -- Lasix was switched back to his home medication. Will consider increasing it to discharge he has diuresed 5 L yesterday. -- . Start Nitropatch -- Daily weights and strict I and O -- Elevate head of bed -- Telemetry monitoring -- continue home statin and beta jeannette -- Lipid panel ordered shows elevated cholesterol to HDL ratio -- TSH within normal -- A1c pending 2. Bilateral basilar artery passes versus pneumonia: Clinically he does not appear to be having pneumonia. He has no fevers and white count and no cough. We will continue to monitor 3. Elevated blood pressures: -- We will restarted his metoprolol at a lower dose of 3 mg extended release. There is some concern due to his low heart rate. -- Increase Zemplar to find to 10 mg by mouth daily. -- Started spironolactone 12.5 mg daily 4. Dyspnea at admission/present at admission: -- Patient is on Coumadin currently . At the time of his admission he was 1.92. Will consider CTA of chest PE protocol if there is a continued concern 5. Elevated bilirubin present admission: will investigate if this is due to some kind of liver/cholecystitis type of issues his white count is normal. -- Afebrile but will consider right upper quadrant scan to rule out gallbladder as an etiology for his nausea this a.m. and elevated bilirubin Chronic medical issues 1. Coronary artery disease.: Continue medications 2. Prior [place]. 3. Hypertension: Continue home medications . 4. Hyperlipidemia: Continue home medications 5. PE 2 secondary to lupus anticoagulant on chronic warfarin (last PE 2008): Continue home medications 6. GERD continue medications: 7. Osteoarthritis. 8. Spinal stenosis. 9. Depression and anxiety continue home medications: 10. OCD. 11. Peripheral neuropathy.: Continue medications 12. Hypothyroidism. 13. Insomnia. 14. Venous insufficiency. 15 : CKD stage III Code status : Full code VTE Mechanical Devices: Intermittant Pneumatic CD Resuscitation Status: CPR: Attempt Resuscitation Danielle Bundy DO Aug 27, 2016 21:28
[2016-08-28] VITALS (7 sets, daily range): BP systolic 153–191; BP diastolic 67–80; PULSE 57–79; RESP 16–18; O2SAT 95–97
--- NOTE | 2016-08-28 00:16 | NUR ---
HYPERTENSION: Pt. cont. to have high BPs. 190/77, 181/86. Sent message to Hospitalist. New orders to give Aldactone 12.5 mg po, given as ordered. Will cont. to monitor.
--- NOTE | 2016-08-28 05:23 | PCM.PNMED ---
Subjective Date of Service Aug 28, 2016 Exam Vital Signs Vital Sign - Last Date Time Temp Pulse Resp B/P Pulse Ox O2 Delivery O2 Flow Rate FiO2 08/28/16 04:45 Supplement Oxygen 08/28/16 04:45 79 08/27/16 23:55 36.4 17 185/76 94 08/26/16 00:22 1.00 Intake and Output 08/27/16 08/27/16 08/28/16 Cumulative From/Thru 15:00 23:00 07:00 08/25/16 14:19 - 08/28/16 05:22 Intake Total 60 ml 680 ml 866 ml 3778 ml Output Total 1450 ml 1350 ml 59936 ml Balance 60 ml -770 ml -484 ml -6797 ml Intake Oral 680 ml 800 ml 3652 ml IV Total 60 ml 66 ml 126 ml Output Urine Total 1450 ml 1350 ml 10890 ml # Voids 1 # Bowel Movements 1 0 2 Lab and Diagnostics Result Diagram: 08/27/16 0623 08/27/16 0623 X-Rays, CTs and MRIs Checks x-ray personally reviewed. Report noted: Bibasilar atelectasis versus pneumonia. Cardiac Echo Impressions Echocardiogram Report Name: DOLORES ROCK LStudy [place] e: 08/26/2016 Height: 70 in Hospital Exam Location: [facility] Weight: 303 lb Gender: Male BSA: 2.5 m2 : 1945 Age: 71 yrs BP: 184/93 mmHg Reason For Study: SOB Ordering Physician: [facility] Interpretation Summary The left ventricle is normal in size. Left ventricular systolic function is borderline reduced. The ejection fraction is estimated to be 50-55%. There has been no significant change since the previous study. There are no focal wall motion abnormalities. Assessment of diastolic parameters suggests a pseudonormalization pattern, consistent with elevated filling pressures. The right ventricle is mildly dilated. Right ventricular systolic function is mildly reduced. The right ventricular systolic pressure is estimated at at least 43 mmHg assuming a right atrial pressure of 3 mm Hg. The left atrium is moderately dilated. Right atrial size is normal. There is moderate mitral regurgitation. There is mild to moderate aortic stenosis. There has been no significant change since the previous study. The peak aortic velocity is 2.24 m/sec. The peak aortic velocity on the previous exam was 2.0 m/sec. The aortic valve area is 1.4 centimeters squared by planimetry. There is mild aortic regurgitation. This is unchanged compared to the previous study. There is no other significant valvular heart disease. The ascending aorta is mildly enlarged. Assessment & Plan Pending 1. Acute on chronic systolic failure with hypoxia: -- Echocardiogram revealed no significant drop in EF. -- Lasix was switched back to his home medication. Will consider increasing it to discharge he has diuresed 5 L yesterday. -- . Start Nitropatch -- Daily weights and strict I and O -- Elevate head of bed -- Telemetry monitoring -- continue home statin and beta jeannette -- Lipid panel ordered shows elevated cholesterol to HDL ratio -- TSH within normal -- A1c pending 2. Bilateral basilar artery passes versus pneumonia: Clinically he does not appear to be having pneumonia. He has no fevers and white count and no cough. We will continue to monitor 3. Elevated blood pressures: -- We will restarted his metoprolol at a lower dose of 3 mg extended release. There is some concern due to his low heart rate. -- Increase Zemplar to find to 10 mg by mouth daily. -- Started spironolactone 12.5 mg daily 4. Dyspnea at admission/present at admission: -- Patient is on Coumadin currently . At the time of his admission he was 1.92. Will consider CTA of chest PE protocol if there is a continued concern 5. Elevated bilirubin present admission: will investigate if this is due to some kind of liver/cholecystitis type of issues his white count is normal. -- Afebrile but will consider right upper quadrant scan to rule out gallbladder as an etiology for his nausea this a.m. and elevated bilirubin Chronic medical issues 1. Coronary artery disease.: Continue medications 2. Prior [place]. 3. Hypertension: Continue home medications . 4. Hyperlipidemia: Continue home medications 5. PE 2 secondary to lupus anticoagulant on chronic warfarin (last PE 2008): Continue home medications 6. GERD continue medications: 7. Osteoarthritis. 8. Spinal stenosis. 9. Depression and anxiety continue home medications: 10. OCD. 11. Peripheral neuropathy.: Continue medications 12. Hypothyroidism. 13. Insomnia. 14. Venous insufficiency. 15 : CKD stage III Code status : Full code VTE Mechanical Devices: Intermittant Pneumatic CD Resuscitation Status: CPR: Attempt Resuscitation Danielle Bundy DO Aug 28, 2016 05:23
[2016-08-28] MEDS: Isosorbide Mononitrate 30 mg ER24 Tablet PO SCH (06:30)
[2016-08-28] MEDS: MeTOProlol XL 50 mg ER24 Tablet PO SCH (06:30)
[2016-08-28 07:10] LABS: INR 3.13 ratio
[2016-08-28 08:27] LABS: BASOPHILS % (AUTO) 0.5 % (0-3); MONOCYTES % (AUTO) 10.9 % (4-12); Mean Corpuscular Hemoglobin 30.9 pg (27.0-35.0); NEUTROPHILS % (AUTO) 63.8 % (40-74); Platelet Count 133 bil/L (150-400)
--- NOTE | 2016-08-28 10:48 | PCM.PHAPRO ---
Progress Date of Service: Aug 28, 2016 Warfarin Management Per Pharmacy: Indication: hx of PE x2 Goal INR: 2-3 Home warfarin dose: 10 mg daily Pertinent information: admitted for CHF exacerbation. Date Aug 26-Aug 27-Aug 28-Aug INR 1.89 1.92 2.7 3.13 INR change 0.03 0.78 0.43 Warf Dose 14 mg 12 mg 10 MG XXXXX INR is supratherapeutic due to boluses. Will give reduced dose compared to home dose. Give warfarin 8 mg PO today at 1700. Pharmacy to continue to monitor and dose warfarin daily. Thank you, Jossy Beyer Pharmacist Jossy Beyer Aug 28, 2016 10:48
[2016-08-28] MEDS ORDERED: METO-272 PO (13:47)
[2016-08-28] MEDS ORDERED: SPIR25TA3 PO (13:47)
[2016-08-28] MEDS ORDERED: AMLO5TAB2 PO (13:47)
--- NOTE | 2016-08-28 14:03 | NUR ---
Social Work- Readiness for Discharge Data: EMR reviewed. Pt is on day 3 of hospitalization for acute CHF per H&P. Cardiology continues to follow pt. Pt received abdominal ultrasound. Pt to discharge home with to transport via POV. No anticipated discharge needs. SW will continue to follow. Assessment: Pt who is independent at base. Plan: Pt to discharge home with to transport via POV. No anticipated discharge needs. SW will continue to follow. SINDY Agrawal
--- NOTE | 2016-08-28 14:43 | NUR ---
Discharge To home via private vehicle with at 14:42. Steady, independent transfer to wheelchair. IV discontinued intact. Pt and express understanding of all discharge instructions and care notes, including followup labs and appt, and med changes. All belongings, including wallet from safe, sent with pt.
--- NOTE | 2016-08-28 15:00 | DRSVH ---
PROCEDURE: US ABDOMEN INDICATIONS: nausea, elevated bili TECHNIQUE: Real-time scanning was performed of the abdominal and retroperitoneal organs, with image documentatio n. COMPARISON: None. FINDINGS: Liver length: 17.04 cm Gallbladder Wall Thickness: 3.30 mm CHD: 2.40 mm CBD: 5.10 mm Spleen length: 10.09 cm Right kidney length: 12.09 cm Left kidney length: 11.91 cm Aorta(Proximal): 2.57 cm Liver: Liver is diffusely increased in echogenicity. No focal hepatic abnormalities identified. No rmal hepatic size. Gallbladder: No stones. However wall mildly thickened measuring 3.3 mm. No pericholecystic fluid or sonographic Ley sign. Biliary ducts: Intrahepatic bile ducts are non-dilated. Extrahepatic bile duct caliber is normal. Normal is 6-7 mm or less in diameter, or 10 mm or less post-cholecystectomy. Pancreas: Not visualized. Spleen: Spleen is normal in size and homogeneous in echotexture. Kidneys: Kidneys are normal in size and echotexture. No hydronephrosis or nephrolithiasis. No bailey d masses. Aorta: Visualized aorta is normal in caliber at less than 3 cm. Iliacs: Proximal common iliac arteries are normal in caliber at less than 2.5 cm. IVC: Intrahepatic inferior vena cava is patent. Miscellaneous: No free abdominal fluid. IMPRESSION: Gallbladder wall mildly thickened measuring 3.3 mm and developing cholecystitis cannot be excluded. Recommend clinical correlation and followup. Increased hepatic echogenicity noted likely related to fatty infiltration of the liver but other sour angela of hepatocellular disease cannot be excluded. Recommend clinical correlation. Dictated by: Kory Andres [facility] Interpreted: Florinda Earl MD on 08/28/2016 at 14:57 Transcribed by: MEGAN on 08/28/2016 at 14:59 Approved by: Florinda Earl MD, PhD on 08/28/2016 at 16:53
--- NOTE | 2016-08-28 20:59 | PCM.DC.MED ---
Discharge Summary Date of Service Aug 28, 2016 Dates of Hospitalization Date of Hospital Admission Aug 25, 2016 at 18:41 Date of Discharge: Aug 28, 2016 Providers: Admitting Physician: Dolores Cabrera MD Primary Care Physician: Valeri Zhou DO Attending Physician: Dolores Cabrera MD Diagnosis at Time of Discharge Diagnosis at Time of Discharge acute on chronic CHF diastolic, HTN, GERD Consultations Cardiology Procedures XRay, CTs & MRIs Checks x-ray personally reviewed. Report noted: Bibasilar atelectasis versus pneumonia. Cardiac Echo Impression Echocardiogram Report Name: DOLORES ROCK LStudy [place] e: 08/26/2016 Height: 70 in Hospital Exam Location: [facility] Weight: 303 lb Gender: Male BSA: 2.5 m2 : 1945 Age: 71 yrs BP: 184/93 mmHg Reason For Study: SOB Ordering Physician: Performed By: Serena Buibanner HOSPITALIST [facility] Interpretation Summary The left ventricle is normal in size. Left ventricular systolic function is borderline reduced. The ejection fraction is estimated to be 50-55%. There has been no significant change since the previous study. There are no focal wall motion abnormalities. Assessment of diastolic parameters suggests a pseudonormalization pattern, consistent with elevated filling pressures. The right ventricle is mildly dilated. Right ventricular systolic function is mildly reduced. The right ventricular systolic pressure is estimated at at least 43 mmHg assuming a right atrial pressure of 3 mm Hg. The left atrium is moderately dilated. Right atrial size is normal. There is moderate mitral regurgitation. There is mild to moderate aortic stenosis. There has been no significant change since the previous study. The peak aortic velocity is 2.24 m/sec. The peak aortic velocity on the previous exam was 2.0 m/sec. The aortic valve area is 1.4 centimeters squared by planimetry. There is mild aortic regurgitation. This is unchanged compared to the previous study. There is no other significant valvular heart disease. The ascending aorta is mildly enlarged. Brief History This is a severely is a male with past medical history of coronary artery disease and NE, obesity, hypertension, stage III CKD, hyperlipidemia, pulmonary embolus x 2 on Coumadin. Patient presented to the Hospital clinic about shortness of breath does not going on for a week or so . His today shortness of breath this was last past 2 days. He endorsed orthopnea, dyspnea on minimal exertion. She came he has gained approximately 10 pounds over the last class 2-3 weeks and has been complaining of lower extremity swelling as well. He said he did not seek medical attention initially because of shortness of breath was not that bad. He denied any chest pain, fever, chills, abdominal pain, nausea, vomiting.. ER work up shows elevated BNP, patient hypoxic on presentation with oxygen saturation around 80% , then improve with oxygen 2 L nasal cannula. Patient has no previous history of heart failure. Hospital Course 1. Acute on chronic diastolic failure with hypoxia: The patient is in acute diastolic heart failure clinically he was short of breath and again 10 pounds of weight in 2 weeks. -- Echocardiogram during this admission revealed no significant drop in EF. He was diuresed on IV Lasix 40 mg twice a day and when he sufficiently diuresed Lasix was switched back to his home medication. He has diuresed close to 10 L during this admissio. Nitropatch was also used. -- Daily weights and strict I and O -- Elevate head of bed -- Telemetry monitoring -- continued home statin and beta jeannette: Metoprolol dose was cut to 50 mg extended release after discussing with cardiology as his heart rates were in the great. -- Lipid panel ordered shows elevated cholesterol to HDL ratio -- TSH within normal -- A1c 5.7 -- Dr. Hubbard from cardiology has followed the patient as she has seen him years ago and we appreciate her recommendations. She is notified of changes to his medications which include adding spironolactone 25 mg per further diuresis as well as to control his blood pressures better, continue home dose of Lasix 40 mg current dose, increase amlodipine to 10 mg daily 2. Bilateral basilar artery passes versus pneumonia: Clinically he does not appear to be having pneumonia. He has no fevers and white count and no cough. Patient is feeling much better on the day of discharge in morning to be discharged home. 3. Elevated blood pressures: -- He is managed on increased amlodipine dose and the new medications spironolactone. Metoprolol succinate was cut to 50 mg. Blood pressure is slowly improving at the time of discharge. Dr. Hubbard to follow up with him as outpatient. Follow-up BMP labs were given 4. Dyspnea at admission/present at admission: -- Patient is on Coumadin currently . At the time of his admission he was 1.92. -- The day of discharge INR is slightly elevated at 3.1. He is asked to continue his home Coumadin dose 10 mg and follow up with INR lab in 2-3 days 5. Elevated bilirubin present admission: will investigate if this is due to some kind of liver/cholecystitis type of issues his white count is normal. -- Bilirubin is 1.4 at the time of discharge. Right upper quadrant scan is ordered and results are pending. Patient is clinically exhibiting no signs of cholecystitis. We request that the PCP follow-up on this result Chronic medical issues: 1. Coronary artery disease.: We continued his home medications with the exception of metoprolol as above 2. Prior NE. 3. Hypertension: Home medications are changed as above 4. Hyperlipidemia: Continued home medications 5. PE 2 secondary to lupus anticoagulant on chronic warfarin (last PE 2008): Continued home medications 6. GERD continue medications: He was given famotidine 7. Osteoarthritis. 8. Spinal stenosis. 9. Depression and anxiety continue home medications: Home medications were given 10. OCD. 11. Peripheral neuropathy.: Continued medications 12. Hypothyroidism: Continue her medications 13. Insomnia.: Continued home medications 14. Venous insufficiency. 15 : CKD stage III Exam Vital Signs (Last) Date Time Temp Pulse Resp B/P Pulse Ox O2 Delivery O2 Flow Rate FiO2 08/28/16 14:05 36.6 66 16 169/74 95 Room Air 08/26/16 00:22 1.00 Exam Gen.: No acute distress very pleasant HEENT: Normocephalic/atraumatic, large neck Heart: Regular rate and rhythm no S3-S4 Neck showed no JVD, negative for hepatojugular reflux Lungs: Clear to auscultation no wheezes or crackles Abdomen: Obese nontender negative Ley sign normal bowel sounds Extremities: Negative for edema Psych: Negative for anxiety Neuro: No focal deficits Test 08/25/16 15:55 08/26/16 05:40 08/27/16 06:35 08/28/16 06:25 Urine Color Yellow (YELLOW) Urine Appearance Clear (CLEAR,HAZY) Urine pH 6.0 (5.0-8.0) Urine Specific [place] 1.010 (1.003-1.035) Urine Protein Negativemg/dL (NEG,TRACE) Urine Glucose (UA) Negativemg/dL (NEGATIVE) Urine Ketones Negativemg/dL (NEGATIVE) Urine Occult Blood Small (NEGATIVE) Urine Nitrite Negative (NEGATIVE) Urine Bilirubin Negative (NEGATIVE) Urine Urobilinogen Normalmg/dL (NORMAL) Urine Leukocyte Esterase Negative (NEGATIVE) Urine RBC 3-10/hpf (0-2) Urine WBC 0-5/hpf (0-5) Urine Epithelial Cells Few/hpf (NONE-MOD) Urine Crystals None seen (NONE SEEN) Urine Bacteria Few/hpf (NONE-FEW) Urine Hyaline Casts None/lpf (NONE) Urine Granular Casts None seen (NONE SEEN) Urine Waxy Casts None seen (NONE SEEN) Urine Red Blood Cell Casts None seen (NONE SEEN) Urine White Blood Cell Casts None seen (NONE SEEN) Urine Mucus None seen (None Seen) Urine Trichomonas None seen (NONE SEEN) Urine Yeast None (NONE SEEN) Urinalysis Comment None Urine Culture Reflexed Not indicated Hemoglobin A1c 5.7% (4.8-5.6) Triglycerides Level 115mg/dL (0-149) Cholesterol Level 158mg/dL (100-199) LDL Cholesterol, Calculated 95.000mg/dL (0-99) VLDL Cholesterol 23.000mg/dL HDL Cholesterol 40mg/dL (>39) Cholesterol/HDL Ratio 3.95 (0.0-4.4) Thyroid Stimulating Hormone (TSH) 1.730uIU/mL (0.450-4.500) Troponin T 0.011ug/L (0.0-0.011) Pro-B-Type Natriuretic Peptide 6004pg/mL (0-376) White Blood Count 5.9th/mm3 (3.8-10.1) Red Blood Count 4.37mil/mm3 (4.40-5.80) Hemoglobin 13.5g/dL (13.8-17.2) Hematocrit 40.2% (41.0-50.0) Mean Corpuscular Volume 92.0fL (81-100) Mean Corpuscular Hemoglobin 30.9pg (27.0-35.0) Mean Corpuscular Hemoglobin Concent 33.6% (32.0-37.0) Red Cell Distribution Width 14.0% (12.3-15.4) Platelet Count 133bil/L (150-400) Neutrophils (%) (Auto) 63.8% (40-74) Lymphocytes (%) (Auto) 22.5% (14-46) Monocytes (%) (Auto) 10.9% (4-12) Eosinophils (%) (Auto) 2.0% (0-5) Basophils (%) (Auto) 0.5% (0-3) Prothrombin Time 34.3sec (8.1-12.5) Prothromb Time International Ratio 3.13ratio Sodium Level 144mEq/L (134-144) Potassium Level 3.8mEq/L (3.5-5.2) Chloride Level 105mEq/L (97-108) Carbon Dioxide Level 25mmol/L (18-29) Blood Urea Nitrogen 19mg/dL (8-27) Creatinine 1.45mg/dL (0.76-1.27) Estimat Glomerular Filtration Rate 51mL/min (>59) Glucose Level 100mg/dL (60-99) Calcium Level 8.9mg/dL (8.5-10.1) Total Bilirubin 1.4mg/dL (0.0-1.2) Aspartate Amino Transf (AST/SGOT) 23U/L (0-50) Alanine Aminotransferase (ALT/SGPT) 18U/L (0-44) Alkaline Phosphatase 86U/L (25-160) Total Protein 6.7g/dL (6.4-8.4) Albumin 4.0g/dL (3.4-5.0) Discharge Medications Discharge Medications Amlodipine (Amlodipine) 5 Mg Tablet 10 MG PO DAILY Prescribed by: DANIELLE CRUZ DO Citalopram (Citalopram) 20 Mg Tablet 20 MG PO HS (Reported) Clonazepam (Clonazepam) 0.5 Mg Tablet 0.5 MG PO HS (Reported) Furosemide (Furosemide) 40 Mg Tablet 40 MG PO DAILY (Reported) Isosorbide MN ER (Isosorbide MN ER) 60 Mg Tab.er.24h 60 MG PO DAILY (Reported) Levothyroxine (Levothyroxine) 75 Mcg Tablet 75 MCG PO QAM (Reported) Methocarbamol (Methocarbamol) 500 Mg Tablet 500 MG PO HS (Reported) Metoprolol Succinate ER (Metoprolol Succinate ER) 50 Mg Tab.er.24h 50 MG PO DAILY Prescribed by: DANIELLE A CRUZ, DO Pregabalin (Lyrica) 50 Mg Capsule 50 MG PO HS (Reported) Quetiapine Fumarate (Quetiapine Fumarate) 50 Mg Tablet 50 MG PO HS (Reported) Ranitidine (Ranitidine) 150 Mg Capsule 150 MG PO HS (Reported) Simvastatin (Simvastatin) 20 Mg Tablet 20 MG PO HS (Reported) Spironolactone (Spironolactone) 25 Mg Tablet 25 MG PO DAILY Prescribed by: DANIELLE CRUZ DO Warfarin Sodium (Warfarin Sodium) 10 Mg Tablet 10 MG PO QAM (Reported) *TAKES IN AM As needed Bisacodyl (Dulcolax) 5 Mg Tablet.dr 10 MG PO DAILY PRN PRN For Constipation ( Reported) Bisacodyl (Dulcolax Rectal) 10 Mg Supp.rect 10 MG RC DAILY PRN PRN For Constipation (Reported) Loperamide (Loperamide) 2 Mg Tablet 2 MG PO Q4H PRN PRN For Diarrhea or Loose Stool (Reported) Nitroglycerin SL (Nitroglycerin SL) 0.4 Mg Tab.subl 0.4 MG SL Q5MIN PRN PRN For Chest Pain (Reported) Followup Plan Follow-up plan Please see Dr. Silveira in one week Discharge Diet: Low fat, Low Sodium, Heart Healthy Discharge Activity: No restrictions Patient Instructions Low salt diet Please note your HTN medications have changed:amlodipine is 10 mg QD, Metoprolol succinate 50 mg QD. . New medication spiranolactone 25 mg is added Follow-up with PCP in: 1 week Danielle Cruz DO Aug 28, 2016 20:59
== END 2016-08-28 14:43 | disposition home or self-care (01) | DRG 292 ==
LOC: SED 13:48 → EDUNIT# 13:48 → EDBD 13:48 → OSC 18:41
PROVIDERS: ADMIT Internal Medicine; ATTEND Internal Medicine
DX: I50.33 Acute on chronic diastolic (congestive) heart failure (principal); G45.0 Vertebro-basilar artery syndrome; Z68.41 Body mass index [BMI] 40.0-44.9, adult; I25.2 Old myocardial infarction; Z79.01 Long term (current) use of anticoagulants; N18.3 Chronic kidney disease, stage 3 (moderate); Z86.711 Personal history of pulmonary embolism; Z95.5 Presence of coronary angioplasty implant and graft; R09.02 Hypoxemia; E80.6 Other disorders of bilirubin metabolism; I34.0 Nonrheumatic mitral (valve) insufficiency; I35.0 Nonrheumatic aortic (valve) stenosis; E66.09 Other obesity due to excess calories; K21.9 Gastro-esophageal reflux disease without esophagitis; E78.5 Hyperlipidemia, unspecified; G62.9 Polyneuropathy, unspecified; E03.9 Hypothyroidism, unspecified; G47.00 Insomnia, unspecified; I12.9 Hypertensive chronic kidney disease with stage 1 through stage 4 chronic kidney disease, or unspecified chronic kidney disease

== ENCOUNTER 2016-09-20 13:34 | Emergency (ER) | payer MEDICARE ==
[~2016-09-20] VITALS: Ht 179.1 cm; Wt 134.1 kg
[~2016-09-20 13:34] MED LIST changes: +AMLO5TAB2 PO; +BISA-67 PO; +BISA10SU61 RC; -BISA5TAB12 PO; +CITA20TA11 PO; -CITA40TA PO; -CLONAZEPAM0.5 M1 PO; -DOCU-42 PO; -DUL10S RC; -FURO-3 PO; +FURO40TA4 PO; +KLO5T PO; +LEVO75TA4 PO; -LEVOXYL75 MCG PO; +LOPE2TAB32 PO; -METH500T7 PO; +METO-272 PO; -NITR0.4T SL; +NITR0.4T6 SL; -PREG50 PO; +PREG50CA PO; -QUET50TA PO; +QUET50TA55 PO; +RANI150C4 PO; -RANI150T13 PO; +ROB500 PO; +SIMV20TA4 PO; +SPIR25TA3 PO; -TOP200 PO; +WARF10TA4 PO; -WARF6TAB2 PO; -ZOC20 PO; -[UNRECOGNIZED DRUG - CODE] PO; -amlodipine PO
[2016-09-20 13:36] VITALS: BP 166/88; PULSE 64; RESP 12; O2SAT 99
[2016-09-20 14:08] VITALS: BP 154/65; PULSE 59; RESP 10; O2SAT 97
[2016-09-20 14:54] LABS: BASOPHILS % (AUTO) 0.3 % (0-3); EOSINOPHILS % (AUTO) 2.4 % (0-5); MONOCYTES % (AUTO) 9.4 % (4-12); Mean Corpuscular Hemoglobin 30.5 pg (27.0-35.0); Mean Corpuscular Volume 94.3 fL (81-100); Platelet Count 150 bil/L (150-400)
[2016-09-20 15:10] LABS: INR 2.28 ratio
--- NOTE | 2016-09-20 15:14 | ED.REPORT ---
HPI-General Illness Date of Service Sep 20, 2016 ED Provider: Stevie Enciso MD A 71 year old male with a history of CHF presents to the ED complaining of high blood pressure onset last night. He reports not feeling good since yesterday. Last night, he woke up with heart palpitations and checked his blood pressure, finding 190/90. Palpitations scared him because of his history of CHF. He took blood pressure three more times and found it to be about 180/90. He went back to sleep, woke up again ,rechecked his blood pressure and found 180 /80. He denies any chest pain, fever, cough, feelings of faintness, weight gain , or SOB. He was taken off of Spironolactone and lasix 10 days ago in relation to his kidney functioning. Since this medication adjustment, he has felt good. He is still taking his blood pressure medication. He plans to visit Residency clinic in 2 days. Nursing Notes Stated Complaint: HIGH BP Chief Complaint: General Complaint Nursing Notes Reviewed: Yes Allergies: Coded Allergies: vancomycin (Verified Allergy, Severe, renal failure, 11/15/15) bacitracin (Verified Allergy, Intermediate, makes the rash worse, 11/15/15) neomycin (Verified Allergy, Intermediate, makes the rash worse, 11/15/15) polymyxin B (Verified Allergy, Intermediate, makes the rash worse, 11/15/15) codeine (Verified Adverse Reaction, Mild, hyper, 02/17/11) Scheduled Amlodipine (Amlodipine) 5 Mg Tablet 10 MG PO DAILY Citalopram (Citalopram) 20 Mg Tablet 20 MG PO HS Clonazepam (Clonazepam) 0.5 Mg Tablet 0.5 MG PO HS Furosemide (Furosemide) 40 Mg Tablet 40 MG PO DAILY Isosorbide MN ER (Isosorbide MN ER) 60 Mg Tab.er.24h 60 MG PO DAILY Levothyroxine (Levothyroxine) 75 Mcg Tablet 75 MCG PO QAM Methocarbamol (Methocarbamol) 500 Mg Tablet 500 MG PO HS Metoprolol Succinate ER (Metoprolol Succinate ER) 50 Mg Tab.er.24h 50 MG PO DAILY Pregabalin (Lyrica) 50 Mg Capsule 50 MG PO HS Quetiapine Fumarate (Quetiapine Fumarate) 50 Mg Tablet 50 MG PO HS Ranitidine (Ranitidine) 150 Mg Capsule 150 MG PO HS Simvastatin (Simvastatin) 20 Mg Tablet 20 MG PO HS Spironolactone (Spironolactone) 25 Mg Tablet 25 MG PO DAILY Warfarin Sodium (Warfarin Sodium) 10 Mg Tablet 10 MG PO QAM *TAKES IN AM Scheduled PRN Bisacodyl (Dulcolax) 5 Mg Tablet.dr 10 MG PO DAILY PRN PRN For Constipation Bisacodyl (Dulcolax Rectal) 10 Mg Supp.rect 10 MG RC DAILY PRN PRN For Constipation Loperamide (Loperamide) 2 Mg Tablet 2 MG PO Q4H PRN PRN For Diarrhea or Loose Stool Nitroglycerin SL (Nitroglycerin SL) 0.4 Mg Tab.subl 0.4 MG SL Q5MIN PRN PRN For Chest Pain General Time Seen by MD: 15:13 Chief Complaint Other (High Blood Pressure) Hx Obtained From: Patient, EMS Arrived By: Ambulance Sudden in Onset?: No Onset Occurred: Yesterday Symptom Duration: Duration unknown Recent Healthcare: Recent doctor visit (08/28/2016 doctor visit) Similar Sx Previous: No Past Medical History Past Medical History Notes: Valeri Zhou is PCP at [facility]. Past Medical History 1. Coronary artery disease. 2. Prior ND. 3. Hypertension. 4. Hyperlipidemia. 5. PE 2 secondary to lupus anticoagulant on chronic warfarin (last PE 2008). 6. GERD. 7. Osteoarthritis. 8. Spinal stenosis. 9. Depression and anxiety. 10. OCD. 11. Peripheral neuropathy. 12. Hypothyroidism. 13. Insomnia. 14. Venous insufficiency. Dementia CHF Diaphragm stuck in up position. Past Surgical History 1. Left total knee arthroplasty. 2. Left rotator cuff repair. 3. Left humerus ORIF. 4. Coronary stenting 1. 5. Tonsillectomy. 6. Right hernia repair. 7. Left RFA. Family History Father who of atherosclerosis at the age of 44. Mother who of Alzheimer's disease. Sister with COPD. Smoking History Never Smoker Social History Alcohol Use: Denies alcohol use (quit drinking a few weeks ago) Drug Use: Denies drug use Other Social History: Good social support, , Local resident Ambulatory Status Independent Review of Systems High blood pressure. Denies feelings of faintness. Denies recent weight gain. Full Review of Systems Constitutional: Denies: Fever Respiratory: Denies: Non-productive cough, Shortness of breath Cardiovascular: Denies: Chest pain Complete sys rev & neg: except as marked. Physical Exam Vital Signs Vital Signs Date Time Temp Pulse Resp B/P Pulse Ox O2 Delivery O2 Flow Rate FiO2 09/20/16 17:01 61 14 156/65 97 09/20/16 15:31 36.5 62 12 153/67 97 Room Air 09/20/16 14:08 59 10 154/65 97 Room Air 09/20/16 13:36 36.4 64 12 166/88 99 Room Air Initial VS: Reviewed General/Constitutional: Awake, Alert Head / Eyes: Atraumatic, Normocephalic, PERRL, EOMI ENT: Atraumatic, Mucous membranes moist Respiratory / Chest: Atraumatic, Breath sounds NL, Breath sounds = bilat, No respiratory distress, No rales, No rhonchi, No wheezing Cardiovascular: Heart rate NL, Regular rhythm, Heart sounds NL Heart Sounds / Murmur: Positive: Murmur present... (2/6 systolic murmur upper right sternal border.) Abdomen: No guarding, No rebound Lower Extremity / Pelvis / MS: Atraumatic, Inspection NL Skin: Warm, Dry Neurologic: Oriented X3, Speech NL Interpretation & Diagnostics Lab Results Interpretation Result Diagram: 09/20/16 1440 09/20/16 1440 Test 09/20/16 14:40 09/20/16 15:11 White Blood Count 6.2th/mm3 (3.8-10.1) Red Blood Count 4.40mil/mm3 (4.40-5.80) Hemoglobin 13.4g/dL (13.8-17.2) Hematocrit 41.5% (41.0-50.0) Mean Corpuscular Volume 94.3fL (81-100) Mean Corpuscular Hemoglobin 30.5pg (27.0-35.0) Mean Corpuscular Hemoglobin Concent 32.3% (32.0-37.0) Red Cell Distribution Width 14.5% (12.3-15.4) Platelet Count 150bil/L (150-400) Neutrophils (%) (Auto) 70.0% (40-74) Lymphocytes (%) (Auto) 17.9% (14-46) Monocytes (%) (Auto) 9.4% (4-12) Eosinophils (%) (Auto) 2.4% (0-5) Basophils (%) (Auto) 0.3% (0-3) Prothrombin Time 24.8sec (8.1-12.5) Prothromb Time International Ratio 2.28ratio Sodium Level 142mEq/L (134-144) Potassium Level 4.9mEq/L (3.5-5.2) Chloride Level 104mEq/L (97-108) Carbon Dioxide Level 22mmol/L (18-29) Blood Urea Nitrogen 23mg/dL (8-27) Creatinine 1.68mg/dL (0.76-1.27) Estimat Glomerular Filtration Rate 43mL/min (>59) Glucose Level 114mg/dL (60-99) Calcium Level 10.0mg/dL (8.5-10.1) Magnesium Level 2.1mg/dL (1.6-2.6) Total Bilirubin 0.8mg/dL (0.0-1.2) Aspartate Amino Transf (AST/SGOT) 31U/L (0-50) Alanine Aminotransferase (ALT/SGPT) 21U/L (0-44) Alkaline Phosphatase 78U/L (25-160) Troponin T < 0.010ug/L (0.0-0.011) Total Protein 7.8g/dL (6.4-8.4) Albumin 4.2g/dL (3.4-5.0) Hold Urine Received (Received) ECG Interpretation ECG Interpretation: Rate is 62. Sinus Rhythm. Normal. Time: 15:02 Interpreted by: ED physician X-Ray Chest Interpretation Chest Xray Interpretation: IMPRESSION: 1. Trace right basilar radiopacities. Differential considerations include aspiration, atelectasis, and infection. Dictated by: Aleah Roper M.D. on 09/20/2016 at 15:34 Approved by: Aleah Roper M.D. on 09/20/2016 at 15:35 Interpretation / Wet Read by: Interpret - Radiologist Re-Eval/Medical Decision Source of Hx: Old records, EMS Time of Eval: 16:39 Re-Evaluation/Progress Note: Rechecked patient, explained normal test results, diagnosis, and plan for discharge. Patient understands and agrees with the plan. All questions addressed. Counseled Regarding: Diagnosis, Lab results, Need for follow-up, When/why to return to ED Discharge & Departure Primary Impression: Heart palpitations Disposition: Home Discharge Condition All VS Reviewed: Yes Condition: Stable Additional Instructions: Emergency department evaluation today included interview, examination, ECG, labs chest x-ray and review of past records. Evaluation today is reassuring. We do not find a serious acute problem today. When you experience high blood pressure in the future, write the number and the time down. It is good to check your blood pressure once per day. Follow up with with your scheduled Cardiology appointment on Thursday as scheduled. Return to the Emergency Department for any chest pain, Shortness of breath, fast or irregular heartbeats, or weakness. Referrals: Valeri Zhou DO (PCP) Faviola Attestation Portions of this note were transcribed by Nazario Palubmo. I, Dr. Enciso personally performed the history, physical exam and medical decision-making; I reviewed and confirmed the accuracy of the information in the transcribed note. Signed by: Faviola Manning, 09/20/2016, 1650. copies to: Valeri Zhou Donald L MD Sep 20, 2016 15:14 Nazario Palumbo Sep 20, 2016 15:18
[2016-09-20 15:25] LABS: TROPONIN T < 0.010 ug/L (0.0-0.011)
[2016-09-20 15:28] LABS: Magnesium 2.1 mg/dL (1.6-2.6)
[2016-09-20 15:31] VITALS: BP 153/67; PULSE 62; RESP 12; O2SAT 97
--- NOTE | 2016-09-20 15:37 | DRSVH ---
PROCEDURE: X-RAY CHEST, TWO VIEWS ([id number]) INDICATIONS: palpitations TECHNIQUE: 2 views of the chest were acquired. COMPARISON: [facility], CR, XR CHEST 1VW (PORTABLE), 08/25/2016, 15:02. FINDINGS: Surgical changes and devices: None. Lungs and pleura: There are mild bibasilar radiopacities. Left lung is clear. Mediastinum: Mediastinal contours are normal. Heart size is normal. Bones and chest wall: No suspicious bony abnormalities. Soft tissues appear unremarkable. IMPRESSION: 1. Trace right basilar radiopacities. Differential considerations include aspiration, atelectasis, an d infection. Dictated by: Aleah Roper M.D. on 09/20/2016 at 15:34 Approved by: Aleah Roper M.D. on 09/20/2016 at 15:35
[2016-09-20 17:01] VITALS: BP 156/65; PULSE 61; RESP 14; O2SAT 97
== END 2016-09-20 17:01 | disposition home or self-care (01) ==
LOC: SED 13:34
DX: R00.2 Palpitations (principal); I25.10 Atherosclerotic heart disease of native coronary artery without angina pectoris; I25.2 Old myocardial infarction; K21.9 Gastro-esophageal reflux disease without esophagitis; E78.5 Hyperlipidemia, unspecified; Z86.711 Personal history of pulmonary embolism; I11.0 Hypertensive heart disease with heart failure; I50.9 Heart failure, unspecified; Z79.01 Long term (current) use of anticoagulants; Z79.899 Other long term (current) drug therapy; Z88.1 Allergy status to other antibiotic agents; Z88.5 Allergy status to narcotic agent; Z88.8 Allergy status to other drugs, medicaments and biological substances

== ENCOUNTER 2016-11-17 12:36 | Inpatient (IN) | payer MEDICARE ==
[~2016-11-17] VITALS: Ht 180.3 cm; Wt 127.8 kg
[2016-11-17] VITALS (9 sets, daily range): BP systolic 140–180; BP diastolic 60–90; PULSE 53–66; RESP 15–24; O2SAT 92–100
[2016-11-17] MEDS ORDERED: 0.9% Sodium Chloride 1,000 ML IV ONE (12:43)
[2016-11-17 12:58] LABS: BASOPHILS % (AUTO) 0.1 % (0-3); EOSINOPHILS % (AUTO) 1.4 % (0-5); MONOCYTES % (AUTO) 11.2 % (4-12); Mean Corpuscular Hemoglobin 31.1 pg (27.0-35.0); Mean Corpuscular Volume 95.2 fL (81-100); NEUTROPHILS % (AUTO) 78.1 % (40-74); Platelet Count 146 bil/L (150-400)
--- NOTE | 2016-11-17 13:13 | DRSVH ---
PROCEDURE: X-RAY CHEST ONE VIEW, PORTABLE ([id number]) INDICATIONS: 71 year-old male with confusion. TECHNIQUE: One view of the chest was acquired. COMPARISON: [facility], CR, XR CHEST 2VW, 09/20/2016, 15:17. [facility], CR, XR CHEST 1VW (PORTABLE), 08/25/2016, 15:02. [facility], CR, XR CHEST 2VW, 03/25/2016, 14 :57. FINDINGS: Surgical changes and devices: Left shoulder arthroplasty hardware is again noted. Lungs and pleura: No pleural effusions or pneumothorax. Lungs are clear. Lung volumes are decrease d, with persistent asymmetric right hemidiaphragm elevation. Mediastinum: Mediastinal contours appear normal. Cardiomegaly is unchanged. There is aortic atheros clerosis. Bones and chest wall: No suspicious bony lesions. Overlying soft tissues appear unremarkable. IMPRESSION: 1. Mild cardiomegaly, without acute cardiopulmonary disease. 2. Chronic right hemidiaphragm elevation would suggest right phrenic nerve dysfunction. Dictated by: Ab West M.D. on 11/17/2016 at 12:10 Approved by: Ab West M.D. on 11/17/2016 at 12:12
[2016-11-17 13:20] LABS: TROPONIN T < 0.010 ug/L (0.0-0.011)
--- NOTE | 2016-11-17 13:35 | ED.REPORT ---
HPI-General Illness Date of Service Nov 17, 2016 ED Provider: Azeb Flores MD Patient is a 71 year old male with a hx of PE's, CHF, DM, COPD, HTN, and hyperlipidemia on Warfarin who presents to the ED via EMS complaining of worsening dyspnea upon exertion onset 3 weeks ago. Associated symptoms include leg swelling, dysarthria, and R sided weakness. He denies fever, chest pain, abdominal pain, diarrhea, constipation, dysuria, or any other symptoms. He reports that his dysarthria and SOB are chronic but family members have become concerned. He does not use oxygen at home. He used 40 mg a day of Lasix. He was admitted for Heart failure August 12, 2016. His echo indicated an ejection fraction of 50-55%. His A1C and TSH were normal at that time. His diagnoses were CHF, HTN, and reflux. Nursing Notes Stated Complaint: WEAKNESS Chief Complaint: Neuro Symptoms/ Deficits Nursing Notes Reviewed: Yes Allergies: Coded Allergies: vancomycin (Verified Allergy, Severe, renal failure, 11/15/15) bacitracin (Verified Allergy, Intermediate, makes the rash worse, 11/15/15) neomycin (Verified Allergy, Intermediate, makes the rash worse, 11/15/15) polymyxin B (Verified Allergy, Intermediate, makes the rash worse, 11/15/15) codeine (Verified Adverse Reaction, Mild, hyper, 02/17/11) Scheduled Amlodipine (Amlodipine) 5 Mg Tablet 10 MG PO DAILY Citalopram (Citalopram) 20 Mg Tablet 20 MG PO HS Clonazepam (Clonazepam) 0.5 Mg Tablet 0.5 MG PO HS Furosemide (Furosemide) 40 Mg Tablet 40 MG PO DAILY Isosorbide MN ER (Isosorbide MN ER) 60 Mg Tab.er.24h 60 MG PO DAILY Levothyroxine (Levothyroxine) 75 Mcg Tablet 75 MCG PO QAM Methocarbamol (Methocarbamol) 500 Mg Tablet 500 MG PO HS Metoprolol Succinate ER (Metoprolol Succinate ER) 50 Mg Tab.er.24h 50 MG PO DAILY Pregabalin (Lyrica) 50 Mg Capsule 50 MG PO HS Quetiapine Fumarate (Quetiapine Fumarate) 50 Mg Tablet 50 MG PO HS Ranitidine (Ranitidine) 150 Mg Capsule 150 MG PO HS Simvastatin (Simvastatin) 20 Mg Tablet 20 MG PO HS Spironolactone (Spironolactone) 25 Mg Tablet 25 MG PO DAILY Warfarin Sodium (Warfarin Sodium) 10 Mg Tablet 10 MG PO QAM *TAKES IN AM Scheduled PRN Bisacodyl (Dulcolax) 5 Mg Tablet.dr 10 MG PO DAILY PRN PRN For Constipation Bisacodyl (Dulcolax Rectal) 10 Mg Supp.rect 10 MG RC DAILY PRN PRN For Constipation Loperamide (Loperamide) 2 Mg Tablet 2 MG PO Q4H PRN PRN For Diarrhea or Loose Stool Nitroglycerin SL (Nitroglycerin SL) 0.4 Mg Tab.subl 0.4 MG SL Q5MIN PRN PRN For Chest Pain General Time Seen by MD: 12:48 Chief Complaint Breathing problem Hx Obtained From: Patient Arrived By: Ambulance Sudden in Onset?: No Onset Occurred: More than a week ago... (3 weeks) Past Medical History Past Medical History Notes: Valeri Zhou is PCP at [facility]. Past Medical History 1. Coronary artery disease. 2. Prior [place]. 3. Hypertension. 4. Hyperlipidemia. 5. PE 2 secondary to lupus anticoagulant on chronic warfarin (last PE 2008). 6. GERD. 7. Osteoarthritis. 8. Spinal stenosis. 9. Depression and anxiety. 10. OCD. 11. Peripheral neuropathy. 12. Hypothyroidism. 13. Insomnia. 14. Venous insufficiency. Kidney disease GERD Dementia CHF Diaphragm stuck in up position. Reports: COPD, Diabetes mellitus Reports: Depression Past Surgical History 1. Left total knee arthroplasty. 2. Left rotator cuff repair. 3. Left humerus ORIF. 4. Coronary stenting 1. 5. Tonsillectomy. 6. Right hernia repair. 7. Left RFA. Family History Father who of atherosclerosis at the age of 44. Mother who of Alzheimer's disease. Sister with COPD. Smoking History Never Smoker Social History Alcohol Use: Denies alcohol use Drug Use: Denies drug use Other Social History: Good social support, , Local resident Ambulatory Status Independent Review of Systems +dysarthria Full Review of Systems Constitutional: Denies: Fever Respiratory: Reports: Dyspnea on exertion Cardiovascular: Denies: Chest pain GI: Denies: Abdominal pain, Constipation, Diarrhea Male: Denies Dysuria Musculoskeletal: Reports: Extremity swelling Neurologic: Reports: Weakness (R sided ) Complete sys rev & neg: except as marked. Physical Exam Vital Signs Vital Signs Date Time Temp Pulse Resp B/P Pulse Ox O2 Delivery O2 Flow Rate FiO2 11/17/16 15:10 24 Nasal Cannula 1 11/17/16 15:03 53 15 151/61 100 Nasal Cannula 1 11/17/16 12:36 37.1 55 19 140/60 92 Room Air Initial VS: Reviewed General/Constitutional: Well-developed, Well-nourished Neck: Full range of motion Abdomen / GI: Soft, Non-tender Skin: Warm, Dry Psychiatric: Mood/affect normal, Behavior normal, Normal thought content Head / Eyes: Normocephalic Periorbital and perioral edema Respiratory / Chest: Atraumatic bibasilar crackles significant dyspnea upon getting out of bed Cardiovascular: Heart rate NL, Regular rhythm, Heart sounds NL Lower Ext Edema: Positive: Bilateral 4+ (With chronic venous stasis changes ) Neurologic: Oriented X3 R facial droop, tongue deviates to the left. Less motor activity R side of forehead Upper extremity sensation intact R sided weakness upon standing Stroke scale score 2 Interpretation & Diagnostics Lab Results Interpretation Result Diagram: 11/17/16 1255 11/17/16 1255 Test 11/17/16 12:55 11/17/16 13:12 11/17/16 15:30 White Blood Count 8.6th/mm3 (3.8-10.1) Red Blood Count 3.76mil/mm3 (4.40-5.80) Hemoglobin 11.7g/dL (13.8-17.2) Hematocrit 35.8% (41.0-50.0) Mean Corpuscular Volume 95.2fL (81-100) Mean Corpuscular Hemoglobin 31.1pg (27.0-35.0) Mean Corpuscular Hemoglobin Concent 32.7% (32.0-37.0) Red Cell Distribution Width 13.7% (12.3-15.4) Platelet Count 146bil/L (150-400) Neutrophils (%) (Auto) 78.1% (40-74) Lymphocytes (%) (Auto) 9.1% (14-46) Monocytes (%) (Auto) 11.2% (4-12) Eosinophils (%) (Auto) 1.4% (0-5) Basophils (%) (Auto) 0.1% (0-3) Sodium Level 140mEq/L (134-144) Potassium Level 4.4mEq/L (3.5-5.2) Chloride Level 104mEq/L (97-108) Carbon Dioxide Level 23mmol/L (18-29) Blood Urea Nitrogen 17mg/dL (8-27) Creatinine 1.35mg/dL (0.76-1.27) Estimat Glomerular Filtration Rate 56mL/min (>59) Glucose Level 132mg/dL (60-99) Calcium Level 9.2mg/dL (8.5-10.1) Magnesium Level 2.0mg/dL (1.6-2.6) Total Bilirubin 1.3mg/dL (0.0-1.2) Aspartate Amino Transf (AST/SGOT) 24U/L (0-50) Alanine Aminotransferase (ALT/SGPT) 19U/L (0-44) Alkaline Phosphatase 86U/L (25-160) Troponin T < 0.010ug/L (0.0-0.011) Pro-B-Type Natriuretic Peptide 6463pg/mL (0-376) Total Protein 7.1g/dL (6.4-8.4) Albumin 3.6g/dL (3.4-5.0) Lactic Acid Level 0.6mmol/L (0.4-2.0) ECG Interpretation ECG Interpretation: Sinus rate 51 Atrial premature complex Time: 13:02 Interpreted by: ED physician X-Ray Chest Interpretation Chest Xray Interpretation: IMPRESSION: 1. Mild cardiomegaly, without acute cardiopulmonary disease. 2. Chronic right hemidiaphragm elevation would suggest right phrenic nerve dysfunction. Dictated by: Ab West M.D. on 11/17/2016 at 12:10 Approved by: Ab West M.D. on 11/17/2016 at 12:12 ED Physician Read: Signs of fluid overload with interstitial lung findings, worse than previous, chronically elevated R hemidiaphragm, consistent with heart failure Azeb Flores M.D. View: Portable, 1 view Interpretation / Wet Read by: Interpret - Radiologist CT Head Interpretation FINDINGS: Image quality: Excellent. CSF spaces: Basal cisterns are patent. No extra-axial fluid collections. The ventricles are symmetric in size and shape. Brain: No intracranial bleeds or masses. There is cerebral volume loss for age, with resultant ventricular and sulcal prominence. There are periventricular and deep white matter chronic small vessel ischemic changes. There is intracranial internal carotid artery atherosclerosis. Skull and face: Multiple bilateral dharmesh holes are incidentally noted. Calvarium and visualized facial bones appear intact, without suspicious lesions. Sinuses: Visualized sinuses and mastoids are clear. IMPRESSION: No acute intracranial process Chronic findings as above Dictated by: Jose Eduardo Quintanilla M.D. on 11/17/2016 at 14:20 Approved by: Jose Eduardo Quintanilla M.D. on 11/17/2016 at 14:23 Study: Head CT no contrast Interpretation / Wet Read by: Interpret - Radiologist Re-Eval/Medical Decision Med Decision/Clinical Course Presents with 3 weeks of increasing dyspnea headiness some moderate confusion question as to whether he has got new dysarthria and a mild right facial droop or whether this is his baseline. He feels that he is unchanged. Head CT does not suggest a new stroke and with symptoms ongoing for 3 weeks would expect some findings on CT scan. Clinical exam is consistent with congestive heart failure. He continues to fall asleep with moderate levels of oxygen in place. With oxygen in the 1-2 L range his saturations are in the mid 90s and his end-tidal CO2 was 40, not suggesting significant CO2 retention as the cause for his fatigue. There is no evidence of sepsis nor infection antibiotics are not started at this point he is given Lasix to help with the heart failure. Will need admission for further treatment of his failure. Time of Eval: 15:00 Re-Evaluation/Progress Note: Discussed plan for admission. Patient understands and agrees with plan. All questions addressed at this time. Consultation : Consulted With: Hospitalist Call Returned at: 15:51 Link Wire Fabric Machine Tender: Will see patient, Agrees with plan Counseled Regarding: Diagnosis, Lab results, Need for admission Discharge & Departure Primary Impression: Heart failure Heart failure type: unspecified heart failure type Heart failure chronicity: unspecified heart failure chronicity Qualified Code: I50.9 - Heart failure, unspecified Additional Impression: Dysarthria Ruled Out: Stroke, Acute coronary syndrome Disposition: ADMITTED TO HOSPITAL Discharge Condition All VS Reviewed: Yes Condition: Stable Referrals: Valeri Zhou DO (PCP) Scribe Attestation Portions of this note were transcribed by Guillermo Awan. IDr. Flores personally performed the history, physical exam and medical decision-making; I reviewed and confirmed the accuracy of the information in the transcribed note. Signed by: Guillermo Awan 11/17/16, 1501 copies to: Valeri Zhou DO Risk Factors )( TPA Administration/Criteria Stroke Thrombolytic Therapy : TPA Considered: Yes Neurologist Contacted: No TPA Administered Intravenously: No, not indicated NIH Stroke Scale Level of Consciousness: Alert and responsive (0) Ask Month & Age: Both questions right (0) Open/Close Eyes/Hand Environmental Lead: Performs both tasks (0) Horizontal EO Movements: None (0) Visual Dotson: No visual loss (0) Facial Palsy: Minor paralysis (1) Right Arm Motor Drift (10s): No drift 10 sec (0) Left Arm Motor Drift (10s): No drift 10 sec (0) Right Leg Motor Drift (5s): No drift 5 sec (0) (R side "feels heavier" ) Left Leg Motor Drift (5s): No drift 5 sec (0) Limb Ataxia FNF/Heel-Arriaga: No ataxia (0) Sensation (Arms/Legs/Face): No sensory loss (0) Language Aphasia: No aphasia, normal (0) Dysarthria: Slurring intelligible (1) NIHSS Score: 2 Time NIHSS Performed: 13:43 Date NIHSS Performed: Nov 17, 2016 )( CVA Risk Stratification Diabetes mellitus Hyperlipidemia HypertensionNo Smoking Azeb Flores MD Nov 17, 2016 13:35 GUILLERMO AWAN Nov 17, 2016 13:42 Carolyn Batista Nov 17, 2016 14:51
[2016-11-17] MEDS ORDERED: Furosemide 10 mg/mL 10 mL Inj IVPUSH ONE (13:50)
--- NOTE | 2016-11-17 14:25 | DRSVH ---
PROCEDURE: CT BRAIN WITHOUT CONTRAST ([id number]) INDICATIONS: Right side weakness x 3 weeks TECHNIQUE: Noncontrast 4.5 mm thick angled axial sections acquired from the foramen magnum to the vertex, with c oronal reformats. COMPARISON: [facility], CT, CT BRAIN WO CON, 03/25/2016, 14:52. FINDINGS: Image quality: Excellent. CSF spaces: Basal cisterns are patent. No extra-axial fluid collections. The ventricles are symmet olivia in size and shape. Brain: No intracranial bleeds or masses. There is cerebral volume loss for age, with resultant vent ricular and sulcal prominence. There are periventricular and deep white matter chronic small vessel ischemic changes. There is intracranial internal carotid artery atherosclerosis. Skull and face: Multiple bilateral dharmesh holes are incidentally noted. Calvarium and visualized facia l bones appear intact, without suspicious lesions. Sinuses: Visualized sinuses and mastoids are clear. IMPRESSION: No acute intracranial process Chronic findings as above Dictated by: Jose Eduardo Quintanilla M.D. on 11/17/2016 at 14:20 Approved by: Jose Eduardo Quintanilla M.D. on 11/17/2016 at 14:23
[2016-11-17] MEDS ORDERED: Alum-Mag Hydrox-Simeth 30 mL Suspension PO PRN (15:55)
[2016-11-17] MEDS ORDERED: Ondansetron 2 mg/mL 2 mL Inj IVPUSH PRN (15:55)
[2016-11-17 15:58] LABS: APPEARANCE,URINE CLEAR (CLEAR,HAZY); COLOR,URINE YELLOW (YELLOW); OCCULT BLOOD,URINE SMALL (NEGATIVE); UROBILINOGEN,URINE NORMAL (NORMAL)
--- NOTE | 2016-11-17 16:52 | PCM.HPMED ---
Subjective Date of Service Nov 17, 2016 Primary Provider: Admitting Physician: Danielle Bundy DO Primary Care Physician: Valeri Zhou DO Attending Physician: Danielle Bundy DO Admit Status: From the Emergency Department Chief Complaint: Dyspnea on exertion, slurred speech History of Present Illness: This is a 71-year-old white male with past medical history of systolic congestive heart failure, pulmonary embolisms for which he is on Coumadin, COPD , hyperlipidemia, heart disease status post MS, stent placement, spinal stenosis , peripheral neuropathy, GERD, dementia, depression is presenting today due to altered mental mentation and dyspnea. Vital is present in the room and provided most of the history she states that patient has been very somnolent for the last 3 days. She mentions to me that there has been some adjustments in his heart medications he has been to see his or first assist registered nurse Dr. Silveira and her PA. He has seen them 2 times since his last admission at the hospital in August. He was asked to take Lasix every other day per . He states that he has been forgetting a lot, falling asleep a lot while using his computer. Patient himself states that he is feeling more demented. He apparently has a mild droop to the left in the ER and also slurred speech. says that these symptoms have been ongoing for 3-4 days. Patient is alert when asked questions and then woken up but otherwise falling asleep fairly quickly. He denies recent infections fevers, chills, diarrhea, constipation, urinary symptoms he does endorse chronic orthopnea, dizziness, cough, speech fatigue, memory problems, weakness, chronic fecal incontinence, cold sensation. He feels that his leg edema is worse than his baseline. In the ER chest x-ray showed mild cardiomegaly, chronic right hemidiaphragm elevation without any acute findings, EKG showed premature atrial complex without tachycardia, creatinine was 1.35 at his baseline, CT showed no concern for subacute stroke or bleeding. His he was such saturating fully on 1 L of oxygen which is a new requirement for him and NIHSS stroke scale is 2 (due to speech and droop on face) . Troponin was neg in the ED, BNP elevated >6000. Review of Systems: Gen.: No weight gain patient has been having fevers and malaise Eyes: no visual disturbances or blurring vision HEENT: No nose/throat drainage, no pain in ears or throat, no hearing loss Lymph: No lymph nodes noted Cardiac: No chest pain, positive for orthopnea, PND, pedal edema and dyspnea on exertion. dEnies palpitations Pulmonary: Denies wheezing or bringing up of sputum + worsening dyspnea and cough, denies left-sided chest pain GI: No anorexia nausea vomiting, denies blood or black in the stool : no dysuria hematuria urinary frequency or decrease in urine output Musculoskeletal: Joint swelling no joint pain no new muscle aches or back pain, endorsing chronic knee pain Neuro: No syncope, seizures no loss of consciousness no new focal weakness, numbness or tingling Psychiatric: New new anxiety insomnia or depression Endocrine: endorsing cold intolerance, no polyuria or polydipsia Hematology: No lymphadenopathy or easy bleeding or bruising noted skin: chronic stasis dermatitis Complete review of systems performed, pertinent positives and negatives per history of present illness and as above, all other systems reviewed and are negative. Allergies Coded Allergies: vancomycin (Verified Allergy, Severe, renal failure, 11/15/15) bacitracin (Verified Allergy, Intermediate, makes the rash worse, 11/15/15) neomycin (Verified Allergy, Intermediate, makes the rash worse, 11/15/15) polymyxin B (Verified Allergy, Intermediate, makes the rash worse, 11/15/15) codeine (Verified Adverse Reaction, Mild, hyper, 02/17/11) Home Medications amlodipine, simvastatin, citalopram, clonazepam, lasix, imdur, levothyroxine, methocarbamol, metoprolol, pregabalin, quetiapine, ranitidine, spironolactone, coumadin, PMH Heart failure systolic, PE, COPD, hyperlipidemia, heart disease status post MS and stent, spinal stenosis, neuropathy, GERD, dementia, depression, osteoarthritis Surgical History Total knee replacement, left rotator cuff, left humerus surgery ORIF, cardiac stent 1, tonsillectomy, L RFA, right hernia repair Family History Remarkable for father who of atherosclerosis at age 44 Mother of Alzheimer's Social History Hx Alcohol Use: Yes (quit drinking a few weeks ago) Hx Substance Use: No Hx Tobacco Use: No Smoking Status: Never Smoker Living Arrangement: with Family Exam Vital Signs Vital Sign - Last Date Time Temp Pulse Resp B/P Pulse Ox O2 Delivery O2 Flow Rate FiO2 11/17/16 16:29 36.8 58 20 153/77 94 Nasal Cannula 1.00 Exam Gen.: Following his sleep HEENT: Normocephalic right side of face appears swollen left-sided facial droop Heart: Systolic murmur grade 1+ without radiation regular rate and rhythm lungs: diminished somewhat, no crackles or wheezes Abdomen: obese, soft, nontender Neck: positive mild JVD and positive for mild hepato jugular reflex Legs hemosiderosis swollen 1+ pitting edema bilaterally Vascular the poor dorsalis pedis pulses are palpable Neurology: CN II to 12 are grossly normal with the exception of facial drooping and facial slurring. Romberg's sitting up is negative, alternating hands patient is unable to perform a Missed one point on right field with the finger- to-nose test on the right side. Right-sided facial weakness. Babinski's were not tested as he has peripheral neuropathy he did have sensation and withdrew his toes on the right side but no response on the left side. Musculoskeletal strength: Equal enterprise architect manager strength reduced right leg strength psych negative for anxiety and agitation Lab and Diagnostics Result Diagram: 11/17/16 1255 11/17/16 1255 Cardiac Echo Impressions Echocardiogram Report Name: DOLORES ROCK LStudy [place] e: 08/26/2016 Height: 70 in Hospital Exam Location: [facility] Weight: 303 lb Gender: Male BSA: 2.5 m2 : 1945 Age: 71 yrs BP: 184/93 mmHg Reason For Study: SOB Ordering Physician: Performed By: [facility] Interpretation Summary The left ventricle is normal in size. Left ventricular systolic function is borderline reduced. The ejection fraction is estimated to be 50-55%. There has been no significant change since the previous study. There are no focal wall motion abnormalities. Assessment of diastolic parameters suggests a pseudonormalization pattern, consistent with elevated filling pressures. The right ventricle is mildly dilated. Right ventricular systolic function is mildly reduced. The right ventricular systolic pressure is estimated at at least 43 mmHg assuming a right atrial pressure of 3 mm Hg. The left atrium is moderately dilated. Right atrial size is normal. There is moderate mitral regurgitation. There is mild to moderate aortic stenosis. There has been no significant change since the previous study. The peak aortic velocity is 2.24 m/sec. The peak aortic velocity on the previous exam was 2.0 m/sec. The aortic valve area is 1.4 centimeters squared by planimetry. There is mild aortic regurgitation. This is unchanged compared to the previous study. There is no other significant valvular heart disease. The ascending aorta is mildly enlarged. : 0.11 sec Reading Physician:PM Assessment & Plan # AMS likely due to acute on chronic systolic HF vs. internal bleeding due to supratherapeutic INR vs pain meds vs stroke -- Trend cardiac enzymes to r/o ACS -- CHF managment as below -- MRI stroke protocol to r/o acute/sub acute stroke: ruled out -- Hold meds that would cause AMS: Clonazepam, tramadol, quetiapine, pregabalin , citalopram # congestive heart failure acute exacerbation systolic heart failure: -- Lasix IV 80 mg is Given in the ER patient is endorsing increased urination since the dose was given. He will be on IV 40 mg 3 times a day. -- Nitroglycerin when necessary -- Morphine 1-2 mg for dyspnea when necessary -- Daily weights, educated -- Tele monitoring -- He had and Echo in September, no need for another one unless there is a new concern # Chronic history of PE -- Warfarin pharmacy consult -- INr is ordered>10: 2 units of FFM, 5 mg PO vitK were given -- F/U Q3H H&H --F/U INR at 9:30 PM --Need to investigate why he is so high # strokelike symptoms/neurological deficits: Based on his 's prescription symptoms ongoing for 3-4 days -- Followed by [facility] of brain stroke protocol is ordered: negative for acute stroke Assessment #4 COPD -- ABG are ordered due to somnolence, neg for hypercapnia Assessment # 5 CADd -- Continue home meds Assessment #6 hyperlipidemia -- Continue home meds Assessment #7 Sleep apnea -- Patient will need outpatient evaluation Assessment #8 chronic pain -- We will hold all home meds today due to AMS #9 depression -- We will hold meds tonight due to altered mentation Patient Status: Patient was admitted under inpatient status with expected length of stay greater than two midnights due to severity of presenting symptoms , risk of adverse event, and complexity of treatment plan. I have reviewed all labs from the ER, prior echocardiogram, August Admission for CHF, EKG from the ED. I have reviewd the CXR from the ER myself, it showed CHF. GI Prophylaxis: H2 jeannette VTE Prophylaxis: Sub-Q Heparin (Unfractionated), Theraputic Anticoag with Warfarin Resuscitation Status: CPR: Attempt Resuscitation (he does not want to be intubated or ventilated, is his alternate decision maker) Time spent 45 min Danielle Bundy DO Nov 17, 2016 16:52
--- NOTE | 2016-11-17 17:22 | ABG ---
DateTimeAnalyzed 17:15:59 -_ pH ____7.394 - 7.350 7.450 pCO2 ___44.3__ -mmHg 35.0 45.0 pO2 ___66.4__ -mmHg 69.0 116 HCO3- ___27.0__ -mmol/L 22.0 26.0 ABE ____1.9__ -mmol/L tHb ___11.6__ -g/dL O2Hb ___92.6__ -% COHb ____1.8__ -% 1.5 MetHb ____0.2__ -% sO2 ___94.6__ -% FIO2 ___21.0__ -% Drawn By btl - Date/Time Notified____ 17:22:00 -_ Notified By btl - Notified Whom ___Dr. Bundy - K+ ____4.2__ -mmol/L tO2 ___15.2__ -Vol% Baljit test N/A -
[2016-11-17] MEDS ORDERED: POTA8CAP10 PO (17:50)
[2016-11-17] MEDS ORDERED: FUR20 PO (17:50)
[2016-11-17] MEDS ORDERED: TRAM50TA2 PO (17:50)
[2016-11-17] MEDS ORDERED: PREG100C PO (17:59)
[2016-11-17] MEDS ORDERED: LEVO50TA6 PO (17:59)
[2016-11-17] MEDS ORDERED: AMLO10TA3 PO (17:59)
[2016-11-17] MEDS ORDERED: ALBU18HF INH (17:59)
[2016-11-17] MEDS ORDERED: CARV12.52 PO (17:59)
[2016-11-17] MEDS ORDERED: CITA40TA PO (17:59)
[2016-11-17] MEDS ORDERED: WARF5TAB7 PO ×2 (17:59)
[2016-11-17] MEDS ORDERED: LIDO5O TOP (17:59)
[2016-11-17 18:08] LABS: INR > 10.00 ratio
[2016-11-17] MEDS ORDERED: Phytonadione (Adult) 10 mg/1 mL Inj PO ONE (18:45)
--- NOTE | 2016-11-17 18:59 | DRSVH ---
PROCEDURE: MRA ANGIOGRAM HEAD WITHOUT CONTRAST [id number]) INDICATIONS: SLURRED SPEECH,FACIAL DROOP TECHNIQUE: Noncontrast axial 3-D [id number] MR angiogram, with 3-dimensional maximum intensity projection (M IP) reformats of the internal carotid arteries and posterior circulation then performed. COMPARISON: [facility], MR, MR BRAIN WO CON, 11/17/2016, 18:03. FINDINGS: Image quality: Excellent. Anterior circulation: Intracranial internal carotid arteries demonstrate normal size and intralumina l flow signal. The flow within the paired anterior cerebral arteries is normal and symmetric. The f low within the middle cerebral arteries is normal and symmetric. The anterior communicating artery i s seen. No stenoses, occlusions, or aneurysms. Posterior circulation: Visualized portions of the vertebral arteries demonstrate normal caliber, and join to form a normal appearing basilar artery. The flow within the posterior cerebral arteries is normal and symmetric. No stenoses, occlusions, or aneurysms. IMPRESSION: 1. No stenosis, occlusion, or aneurysm. Dictated by: Aleah Roper M.D. on 11/17/2016 at 18:55 Approved by: Aleah Roper M.D. on 11/17/2016 at 18:58
--- NOTE | 2016-11-17 19:02 | DRSVH ---
PROCEDURE: MRI BRAIN WITHOUT CONTRAST ([id number]) INDICATIONS: Slurred speech, mouth droop TECHNIQUE: Non-contrast axial T1 spin echo, axial T2 fast spin echo, sagittal and axial FLAIR, coronal T2 fast s pin echo, axial gradient echo, axial diffusion and ADC through the brain. COMPARISON: None. FINDINGS: Image quality: Excellent. CSF spaces: Ventricles appear symmetric in size and shape. Basal cisterns are patent. No extra-axi al fluid collections. Brain: No intracranial bleeds or mass effects. There is moderate cerebral volume loss for age. The re are periventricular and deep white matter chronic small vessel ischemic changes. Brainstem appear s normal. Diffusion-weighted images show no acute ischemic insults. No chronic ischemic insults. N ormal intravascular flow voids are present. Skull and face: Calvarial bone marrow is normal in signal. Orbits are normal. Sinuses: Sinuses and mastoids are clear. IMPRESSION: 1. No acute intracranial findings. Specifically, no increased restricted diffusion to suggest acute o r subacute infarct. 2. Moderate findings likely associated with chronic microvascular ischemic changes. Dictated by: Aleah Roper M.D. on 11/17/2016 at 18:58 Approved by: Aleah Roper M.D. on 11/17/2016 at 19:01
[2016-11-17] MEDS ORDERED: Potassium Chloride 20 mEq/15 mL 15mL Oral Soln PO SCH (19:11)
--- NOTE | 2016-11-17 19:13 | NUR ---
Arrived, MRI, Critical Lab, Multidisciplinary Communication 161 - He arrived to [facility] from the ED and was settled into his room. Report received from CAMDEN Santiago in the ED. His mentioned that he had coughed up blood yesterday. Respiratory Therapist Yo Chiang set up his end tital CO2 per MD orders. 170 - Velia from MRI called and was given a report. Spoke to Dr. Bundy about him who said to place him on telemetry and keep a close eye on him tonight. She said if there any changes in his mentation to check with the Night Hospitalist and see if he needs to be transferred to [facility]. She said to also guaiac his stools. 175 - He left [facility] to go get an MRI. He returned about 184 and was placed on telemetry at that point. 1811 - The Lab called to say his INR was critically high at over 10. MRI also notified this nurse that he had refused contrast due to his concerns about the health of his kidneys. At 1820 Dr. Isela Bundy notified who verbally ordered a STAT H/H draw, 2 units of FFP, and a blood consent form to be filled out. She said the INR did not need to repeated and that she would put some more orders in. Care continues.
[2016-11-17 19:58] LABS: TROPONIN T < 0.010 ug/L (0.0-0.011)
[2016-11-17 20:06] LABS: Creatine Kinase 61 U/L (21-232)
--- NOTE | 2016-11-17 20:23 | PCM.CONPHA ---
Subjective Date of Service: Nov 17, 2016 salazar, slurred speeech Reason for Pharmacy Consult: Anticoagulation Management Objective Vital Signs Date Time Temp Pulse Resp B/P Pulse Ox O2 Delivery O2 Flow Rate FiO2 11/17/16 19:54 36.6 62 18 178/62 93 Nasal Cannula 1.00 11/17/16 19:41 59 95 Nasal Cannula 1.00 11/17/16 17:12 Supplement Oxygen 11/17/16 16:29 36.8 58 20 153/77 94 Nasal Cannula 1.00 11/17/16 15:10 24 Nasal Cannula 1 11/17/16 15:03 53 15 151/61 100 Nasal Cannula 1 11/17/16 12:36 37.1 55 19 140/60 92 Room Air Weight (Kilograms): 135 Height (Feet): 5 Height (Inches): 11 Test 11/17/16 12:55 11/17/16 13:12 11/17/16 15:30 11/17/16 19:25 White Blood Count 8.6th/mm3 (3.8-10.1) Red Blood Count 3.76mil/mm3 (4.40-5.80) Mean Corpuscular Volume 95.2fL (81-100) Mean Corpuscular Hemoglobin 31.1pg (27.0-35.0) Mean Corpuscular Hemoglobin Concent 32.7% (32.0-37.0) Red Cell Distribution Width 13.7% (12.3-15.4) Platelet Count 146bil/L (150-400) Neutrophils (%) (Auto) 78.1% (40-74) Lymphocytes (%) (Auto) 9.1% (14-46) Monocytes (%) (Auto) 11.2% (4-12) Eosinophils (%) (Auto) 1.4% (0-5) Basophils (%) (Auto) 0.1% (0-3) Prothrombin Time > 120.0sec (8.1-12.5) Prothromb Time International Ratio > 10.00ratio Sodium Level 140mEq/L (134-144) Potassium Level 4.4mEq/L (3.5-5.2) Chloride Level 104mEq/L (97-108) Carbon Dioxide Level 23mmol/L (18-29) Blood Urea Nitrogen 17mg/dL (8-27) Creatinine 1.35mg/dL (0.76-1.27) Estimat Glomerular Filtration Rate 56mL/min (>59) Glucose Level 132mg/dL (60-99) Calcium Level 9.2mg/dL (8.5-10.1) Magnesium Level 2.0mg/dL (1.6-2.6) Total Bilirubin 1.3mg/dL (0.0-1.2) Aspartate Amino Transf (AST/SGOT) 24U/L (0-50) Alanine Aminotransferase (ALT/SGPT) 19U/L (0-44) Alkaline Phosphatase 86U/L (25-160) Pro-B-Type Natriuretic Peptide 6463pg/mL (0-376) Total Protein 7.1g/dL (6.4-8.4) Albumin 3.6g/dL (3.4-5.0) Acetaminophen Level < 15.0ug/mL Rx (10-25) Lactic Acid Level 0.6mmol/L (0.4-2.0) Urine Color Yellow (YELLOW) Urine Appearance Clear (CLEAR,HAZY) Urine pH 7.0 (5.0-8.0) Urine Specific [place] 1.010 (1.003-1.035) Urine Protein Negativemg/dL (NEG,TRACE) Urine Glucose (UA) Negativemg/dL (NEGATIVE) Urine Ketones Negativemg/dL (NEGATIVE) Urine Occult Blood Small (NEGATIVE) Urine Nitrite Negative (NEGATIVE) Urine Bilirubin Negative (NEGATIVE) Urine Urobilinogen Normalmg/dL (NORMAL) Urine Leukocyte Esterase Negative (NEGATIVE) Urine RBC 11-50/hpf (0-2) Urine WBC 0-5/hpf (0-5) Urine Epithelial Cells Occasional/hpf (NONE-MOD) Urine Crystals None seen (NONE SEEN) Urine Bacteria Few/hpf (NONE-FEW) Urine Hyaline Casts None/lpf (NONE) Urine Granular Casts None seen (NONE SEEN) Urine Waxy Casts None seen (NONE SEEN) Urine Red Blood Cell Casts None seen (NONE SEEN) Urine White Blood Cell Casts None seen (NONE SEEN) Urine Mucus None seen (None Seen) Urine Trichomonas None seen (NONE SEEN) Urine Yeast None (NONE SEEN) Urinalysis Comment None Urine Culture Reflexed Not indicated Hemoglobin 12.1g/dL (13.8-17.2) Hematocrit 36.8% (41.0-50.0) Total Creatine Kinase 61U/L (21-232) Creatine Kinase MB 1.4ng/mL (0.0-10.4) Creatine Kinase MB % % (0.0-5.0) Troponin T < 0.010ug/L (0.0-0.011) Assessment/Plan Assessment/Plan WARFARIN MANAGEMENT A\ 71 YO M ADMITTED FOR ALTERED MENTATION AND CHF EXACERBATION HISTORY OF PE ON WARFARIN INR goal 2-3 other medical history includes Dementia , CHF w/stents, Depression Home dose Warfarin 7.5mg Mon, 5mg Tu,We,Th,Fr,Sa,Warner INR>10 no bleeding Pt recieved Vit K 5mg po x1 P\ Hold warfarin tonight and check INR with Am labs. Increase bleed risk with citalopram and levothyroxine. Saurav Casanova [facility] Nov 17, 2016 20:23
[2016-11-17] MEDS: Furosemide 10 mg/mL 4 mL Inj IVPUSH SCH (21:32)
[2016-11-18] VITALS (12 sets, daily range): BP systolic 152–176; BP diastolic 68–82; PULSE 54–73; RESP 16–24; O2SAT 92–95
[2016-11-18 01:30] LABS: Creatine Kinase 60 U/L (21-232); TROPONIN T < 0.010 ug/L (0.0-0.011)
[2016-11-18 06:27] LABS: INR 2.69 ratio
[2016-11-18] MEDS: Furosemide 10 mg/mL 4 mL Inj IVPUSH SCH ×2 (09:10→14:45)
[2016-11-18] MEDS: Isosorbide Mononitrate 60 mg ER24 Tablet PO SCH (09:12)
--- NOTE | 2016-11-18 12:20 | NUR ---
Social Work: Initial Assessment D: EMR reviewed. Pt is a 71 y/o male admitted for CHF acute exacerbation, altered mental status per H&P. ROMELIA met with pt and spouse at bedside to conduct initial assessment. Pt was not alert/awake. Pt's spouse/DPOA assisted in initial assessment. SW explained role and wrote phone number on white board in room. SW confirmed pt has completed DPOA/advanced directive ppw and a copy is located in pt's chart. Pt's primary contact/DPOA is spouse Tatiana Gonzalez ([phone]). Pt's insurance is [employer] and PCP is Valeri Zhou MD. Pt has no hx of HH. Pt has hx at [facility]. Pt does not have LTC insurance or VA benefits. Pt is independent with ADLs. Pt does not own or use any DME. Pt drives. Pt is independent at baseline. Pt lives with spouse in a single-story home with 1 step to enter in [place]. Pt's spouse confirmed she will provide transport home via POV when pt is medically stable. SW does not anticipate any discharge needs at this time but will continue to follow if needs arise. A: Pt who is independent at baseline. P: Pt's spouse confirmed she will provide transport home via POV when pt is medically stable. ROMELIA does not anticipate any discharge needs at this time but will continue to follow if needs arise. SINDY Hutchison Addendum: 11/18/16 at 1409 by SHMUEL HOLLAND SS Amended: Links added.
--- NOTE | 2016-11-18 15:04 | PCM.PHAPRO ---
Progress Dyspnea on exertion, slurred speech WARFARIN DOSING PER PHARMACY [facility] DFF Date Nov 18-Nov INR >10 2.69 INR change #VALUE! Warf Dose HOLD HOLD A/P -Therapeutic level after 5mg vitamin k was given on 11/17. Unclear of etiology. Confirmed 5mg tabs were dispensed from outpatient pharmacy. -Will continue to hold warfarin tonight after discussion with provider with unclear etiology of supratherapeutic level on presentation to ED -Pharmacy will continue to monitor. Leonidas Anand, PharmD Leonidas Anand Nov 18, 2016 15:04
--- NOTE | 2016-11-18 18:23 | NUR ---
Mentation- "I am still so sleepy". Patient has been alert, appropriate, and oriented. Patient denies complaints other than wanting to sleep. Up with standby assist at bedside. Voiding per urinal and occasionally incontinent after Lasix IV. Tele- SR-SB.
[2016-11-18] MEDS ORDERED: Albuterol 2.5 mg/3 mL Inhalation Solution NEB PRN (20:00)
[2016-11-18] MEDS ORDERED: Furosemide 10 mg/mL 4 mL Inj IVPUSH SCH (20:30)
--- NOTE | 2016-11-18 21:53 | PCM.PNMED ---
Subjective Date of Service Nov 18, 2016 Subjective Patient is seen and examined. He says he is much more alert and awake, agrees. They have discussed his upcoming thyroid biopsy. He has had a soft tissue neck cT in October for facial swelling. Wants to go back on some of his night meds, explained to him that we will have to cut back as meds may be causing his drowsiness. Dyspnea much improved. Exam Vital Signs Vital Sign - Last Date Time Temp Pulse Resp B/P Pulse Ox O2 Delivery O2 Flow Rate FiO2 11/18/16 16:46 36.7 54 20 157/68 95 Room Air 11/17/16 19:54 1.00 Intake and Output 11/17/16 11/17/16 11/18/16 Cumulative From/Thru 15:00 23:00 07:00 11/17/16 12:36 - 11/18/16 06:05 Intake Total 799 ml 799 ml Output Total 1125 ml 2010 ml 3135 ml Balance -1125 ml -1211 ml -2336 ml Intake Oral 340 ml 340 ml IV Total 70 ml 70 ml Packed Cells 200 ml 200 ml FFP 189 ml 189 ml Output Urine Total 950 ml 2010 ml 2960 ml Drainage Total 175 ml 175 ml Exam Gen.: alert and awake today HEENT: right side of face appears very slightly swollen l Heart: Systolic murmur grade 1+ without radiation regular rate and rhythm lungs: diminished somewhat, no crackles or wheezes Abdomen: obese, soft, nontender Neck: neg for jvd Legs hemosiderosis swollen 1+ pitting edema bilaterally Vascular the poor dorsalis pedis pulses are palpable Neurology: no focal deficits psych negative for anxiety and agitation Skin: large hematoma on R upper arm, non tender IVs and Medications IV Fluids none Medications Reviewed: Medications were reviewed in detail Lab and Diagnostics Laboratory Tests Test 11/18/16 00:20 11/18/16 01:00 11/18/16 03:20 11/18/16 05:20 Hemoglobin 11.9g/dL (13.8-17.2) 11.4g/dL (13.8-17.2) 11.5g/dL (13.8-17.2) Hematocrit 37.4% (41.0-50.0) 35.6% (41.0-50.0) 36.5% (41.0-50.0) Total Creatine Kinase 60U/L (21-232) Creatine Kinase MB 1.3ng/mL (0.0-10.4) Creatine Kinase MB % % (0.0-5.0) Troponin T < 0.010ug/L (0.0-0.011) Prothrombin Time 29.4sec (8.1-12.5) Prothromb Time International Ratio 2.69ratio Sodium Level 143mEq/L (134-144) Potassium Level 3.8mEq/L (3.5-5.2) Chloride Level 103mEq/L (97-108) Carbon Dioxide Level 25mmol/L (18-29) Blood Urea Nitrogen 19mg/dL (8-27) Creatinine 1.66mg/dL (0.76-1.27) Estimat Glomerular Filtration Rate 44mL/min (>59) Glucose Level 106mg/dL (60-99) Calcium Level 9.0mg/dL (8.5-10.1) Pro-B-Type Natriuretic Peptide 5578pg/mL (0-376) Thyroid Stimulating Hormone (TSH) 0.580uIU/mL (0.450-4.500) Free Thyroxine 1.43ng/dL (0.82-1.77) Microbiology 11/17/16 Blood Culture - Preliminary, Resulted NO GROWTH AFTER 24 HOURS Result Diagram: 11/18/16 0520 11/17/161 Cardiac Echo Impressions Echocardiogram Report Name: DOLORES ROCK LStudy [place] e: 08/26/2016 Height: 70 in Hospital Exam Location: [facility] Weight: 303 lb Gender: Male BSA: 2.5 m2 : 1945 Age: 71 yrs BP: 184/93 mmHg Reason For Study: SOB Ordering Physician: Performed By: [facility] Interpretation Summary The left ventricle is normal in size. Left ventricular systolic function is borderline reduced. The ejection fraction is estimated to be 50-55%. There has been no significant change since the previous study. There are no focal wall motion abnormalities. Assessment of diastolic parameters suggests a pseudonormalization pattern, consistent with elevated filling pressures. The right ventricle is mildly dilated. Right ventricular systolic function is mildly reduced. The right ventricular systolic pressure is estimated at at least 43 mmHg assuming a right atrial pressure of 3 mm Hg. The left atrium is moderately dilated. Right atrial size is normal. There is moderate mitral regurgitation. There is mild to moderate aortic stenosis. There has been no significant change since the previous study. The peak aortic velocity is 2.24 m/sec. The peak aortic velocity on the previous exam was 2.0 m/sec. The aortic valve area is 1.4 centimeters squared by planimetry. There is mild aortic regurgitation. This is unchanged compared to the previous study. There is no other significant valvular heart disease. The ascending aorta is mildly enlarged. : 0.11 sec Reading Physician:PM Assessment & Plan # AMS likely due to acute on chronic systolic HF vs pain/anxiety meds vs stroke , POA -- Trend cardiac enzymes to r/o ACS: ACS was ruled out -- CHF management as below -- MRI stroke protocol to r/o acute/sub acute stroke: ruled out, only showed chronic changes -- 11/17 Hold meds that would cause AMS: Clonazepam, tramadol, quetiapine, pregabalin, citalopram -- 11/18: Restarted quetiapine at 25 mg hs, pregabalin 50 mg TID. -- much improved on 11/18. --Plan to increase home lasix -- Ordered Thyroid labs TSH, T4: WNL # congestive heart failure acute exacerbation systolic heart failure:POA -- Lasix IV 80 mg is Given in the ER patient is endorsing increased urination since the dose was given. He will be on IV 40 mg 2 times a day. -- Nitroglycerin when necessary -- Morphine 1-2 mg for dyspnea when necessary -- Daily weights, accurate I&O -- Tele monitoring -- Ordered an echo for tomorrow as this is still an acute worsening of CHF and he will have sufficiently diuresed by tomorrow # Chronic history of PE, active -- Warfarin pharmacy consult -- INr is ordered>10: 2 units of FFM, 5 mg PO vitK were given on 11/17 -- F/U Q3H H&H -- F/U INR this AM WNL. Hold Coumadin dosing as the effect of FFP is transient -- Need to investigate why he is so high: he denies taking the wrong dose: Will consider switching to eliquis. # Acute on chronic renal failure: -- Renal function is worsening likey due to diuresis -- Will stop IV lasix in the AM # hematoma on R arm: due to supratherapeutic INR, at the IV site -- k pads -- US R Ext is ordered # strokelike symptoms/neurological deficits: Based on his 's prescription symptoms ongoing for 3-4 days, POA -- Followed by MRA of brain stroke protocol is ordered: negative for acute stroke # COPD, chronic -- ABG are ordered due to somnolence, neg for hypercapnia # CAD, chronic -- Continue home meds # hyperlipidemia, chronic -- Continue home meds # Sleep apnea, chronic -- Patient will need outpatient evaluation # chronic pain, chronic -- We will hold all home meds today due to AMS depression, chronic -- We will hold meds tonight due to altered mentation Patient Status: Patient was admitted under inpatient status with expected length of stay greater than two midnights due to severity of presenting symptoms , risk of adverse event, and complexity of treatment plan. I have reviewed all labs from the ER, prior echocardiogram, August Admission for CHF, EKG from the ED. I have reviewd the CXR from the ER myself, it showed CHF. GI Prophylaxis: H2 jeannette VTE Prophylaxis: Sub-Q Heparin (Unfractionated), Theraputic Anticoag with Warfarin Resuscitation Status: CPR: Attempt Resuscitation (he does not want to be intubated or ventilated, is his alternate decision maker) Time spent 25 min Danielle Bundy DO Nov 18, 2016 17:42
--- NOTE | 2016-11-19 04:22 | NUR ---
Assumed Care/Activity Assumed care of patient around 0200. In bed resting with eyes closed with each rounding this AM. Noted to be using the urinal w/o difficulty. No c/o pain or discomfort. FELDT score= 0.
[2016-11-19 04:50] VITALS: BP 160/85; PULSE 63; RESP 18; O2SAT 92
[2016-11-19 06:29] LABS: INR 1.34 ratio
[2016-11-19 08:57] VITALS: BP 167/59; PULSE 61; RESP 18; O2SAT 92
[2016-11-19] MEDS: Isosorbide Mononitrate 60 mg ER24 Tablet PO SCH (10:00)
[2016-11-19] MEDS ORDERED: Potassium Chloride 20 mEq SR Tablet PO ONE (10:05)
[2016-11-19 10:34] VITALS: PULSE 58
--- NOTE | 2016-11-19 11:34 | NUR ---
DENISE Signed @ 067CM
[2016-11-19 13:27] VITALS: BP 151/61; PULSE 59; RESP 19; O2SAT 94
--- NOTE | 2016-11-19 14:19 | DRSVH ---
[facility] [address] [place] [address] Echocardiogram Report Name: DOLORES ROCKudy [place]oacano e: 11/19/2016 Height: 71 in Hospital Exam Location: [facility] Weight: 288 lb Gender: Male BSA: 2.5 m2 : 1945 Age: 71 yrs BP: 160/85 mmHg Reason For Study: Congestive Heart Failure Ordering Physician: Performed By: [facility] Interpretation Summary The left ventricle is mildly dilated which has slightly increased in size since prior study. Left ventricular systolic function is normal without focal wall motion abnormalities. The ejection fraction is estimated to be 55-60%. LVEF has not changed significantly since prior study. The right ventricle is mildly dilated. Right ventricular systolic function is at the lower limits of normal. The right ventricular systolic pressure is estimated at 41 mmHg assuming a right atrial pressure of 3 mm Hg. Compared to the prior echo exam, there has been no change in the severity of pulmonary hypertension. The left atrium is moderately dilated. The right atrium is mildly dilated. There is trace mitral regurgitation. Compared to the prior echo study, there has been a decrease in the severity of mitral regurgitation. There is mild to moderate aortic stenosis. The calculated aortic valve area is 1.6 cm2. The peak aortic velocity is 2.5 m/sec. The peak aortic velocity on the previous exam was 2.2 m/sec. There has been no significant change since the previous study. There is mild aortic regurgitation. Compared to the prior echo study, there has been no change in the severity of aortic regurgitation. There is no other significant valvular heart disease. The ascending aorta is mildly enlarged. Procedure: A two-dimensional transthoracic echocardiogram with color flow and Doppler was performed. The study quality was technically adequate. Comparison is made with the echocardiogram of 08-26-16. The patient was in normal sinus rhythm during the exam. The heart rate ranged between 55-57 bpm during the study. Left Ventricle: The left ventricle is mildly dilated. There is normal left ventricular wall thickness. Left ventricular systolic function is normal without focal wall motion abnormalities. The ejection fraction is estimated to be 55-60%. Diastolic function could not be accurately assessed due to contradictory data. Right Ventricle: The right ventricle is mildly dilated. Right ventricular systolic function is at the lower limits of normal. Atria: The left atrium is moderately dilated. The right atrium is mildly dilated. The interatrial septum is intact with no evidence for an atrial septal defect. Mitral Valve: The mitral valve is grossly normal. There is trace mitral regurgitation. Compared to the prior echo study, there has been a decrease in the severity of mitral regurgitation. Aortic Valve: The aortic valve is trileaflet. Leaflet mobility is mildly reduced. The aortic valve is moderately calcified. There is mild to moderate aortic stenosis. The calculated aortic valve area is 1.6 cm2. The aortic valve area is 1.7 centimeters squared by planimetry. The peak aortic velocity is 2.5 m/sec. The peak aortic velocity on the previous exam was 2.2 m/sec. The aortic valve mean gradient is 17 mmHg. There has been no significant change since the previous study. There is mild aortic regurgitation. Compared to the prior echo study, there has been no change in the severity of aortic regurgitation. Tricuspid Valve: The tricuspid valve is normal in structure and function. There is a trace or physiologic amount of tricuspid regurgitation. The right ventricular systolic pressure is estimated at 41 mmHg assuming a right atrial pressure of 3 mm Hg. Compared to the prior echo exam, there has been no change in the severity of pulmonary hypertension. Pulmonic Valve: The pulmonic valve is not well seen, but is grossly normal. There is mild pulmonic regurgitation. There is no other significant valvular heart disease. Great Vessels: The aortic root is normal size. The ascending aorta is mildly enlarged. The aortic arch is at the upper limits of normal in size. The IVC is of normal diameter and collapses greater than 50% with a sniff. This suggests a low right atrial pressure of 3 mm Hg. Pericardium/ Pleura There is no pericardial effusion. There is no pleural effusion. MMode/2D Measurements & Calculations LVIDd LA dimension: 4.7 cm RA long axis: 6.5 cm LVOT diam: 2.5 cm : 6.0 cm Ao root diam LVIDs LA A2 area: 30.8 cm RA area: 24.3 cm : 4.4 cm LA A4 area: 40.1 cm RA vol: 77.4 ml Aortic Jxn: 2.9 cm FS: 26.3 % LA length (vol) RA : 31.4 ml/m asc Aorta Diam IVSd RVDd major: 6.2 cm : 0.9cm LA vol: 156.0 ml Ao Arch Diam (Prox LVPWd LA vol index Trans): 3.3 cm : 0.7cm : 63.4 ml/m2 JAN (plan) LV morel. diameter/BSA LV sys. diameter/BSA RVD1 (basal) : 1.7 cm2 (cm/m^2): 2.4 (cm/m^2): 1.8 : 5.0 cm RVD2 (mid) : 5.0 cm Doppler Measurements & Calculations Ao V2 max MV E max filipe MV E/A: 2.0 TR max filipe : 250.2 cm/sec : 78.6 cm/sec Med Peak E' Filipe : 309.0 cm/sec Ao max PG MV A max filipe TR max PG : 25.0 mmHg : 38.8 cm/sec E/E' med: 16.6 : 38.2 mmHg Ao mean PG MV P1/2t: 77.5 msec Lat Peak E' Filipe PA V2 max : 16.8 mmHg : 111.7 cm/sec LVOT Max Filipe E/E' lat: 7.0 PA mean PG : 75.7 cm/sec E/e' average: 11.8 JAN(I,D): 1.6 cm Pulm A Revs Dur PA Accel Time sev ratio : 0.11 sec MV A dur: 0.15 sec AI P1/2t : 672.6 msec AI dec slope : 177.7 cm/s2c MV dec time MV P1/2t max filipe Ao V2 mean LV V1 max PG : 0.26 sec : 196.2 cm/sec Ao V2 VTI: 67.2 cm LV V1 VTI MVA(P1/2t): 2.8 cm2 : 20.9 cm JAN(V,D): 1.5 cm2 PA V2 mean JAN indexed to BSA Pulm A Revs Dur - MV : 69.1 cm/sec (cm^2/m^2): 0.63 A Dur: -0.03 msec Reading Physician:DAVID
--- NOTE | 2016-11-19 16:09 | PCM.PNMED ---
Subjective Date of Service Nov 19, 2016 Subjective Patient is seen and examined. He is wanting to go home. Dyspnea has resolved, he is not as sleepy, more alert and oriented. Exam Vital Signs Vital Sign - Last Date Time Temp Pulse Resp B/P Pulse Ox O2 Delivery O2 Flow Rate FiO2 11/19/16 13:27 36.6 59 19 151/61 94 Room Air 11/17/16 19:54 1.00 Intake and Output 11/18/16 11/18/16 11/19/16 Cumulative From/Thru 15:00 23:00 07:00 11/17/16 12:36 - 11/19/16 06:18 Intake Total 1200 ml 400 ml 2399 ml Output Total 1150 ml 1720 ml 5830 ml Balance 50 ml -1320 ml -3431 ml Intake Oral 1200 ml 400 ml 1940 ml IV Total 70 ml Packed Cells 200 ml FFP 189 ml Output Urine Total 1150 ml 1720 ml 5830 ml # Voids 2 2 # Bowel Movements 0 0 Exam Gen.: alert and awake today HEENT: NCAT Heart: Systolic murmur grade 1+ without radiation regular rate and rhythm lungs: diminished somewhat, no crackles or wheezes Abdomen: obese, soft, nontender Neck: neg for jvd Legs hemosiderosis swollen 1+ pitting edema bilaterally Vascular the poor dorsalis pedis pulses are palpable Neurology: no focal deficits psych negative for anxiety and agitation Skin: large hematoma on R upper arm, non tender IVs and Medications Medications Reviewed: Medications were reviewed in detail Lab and Diagnostics Result Diagram: 11/18/16 0520 11/19/16 0545 Cardiac Echo Impressions Interpretation Summary The left ventricle is mildly dilated which has slightly increased in size since prior study. Left ventricular systolic function is normal without focal wall motion abnormalities. The ejection fraction is estimated to be 55-60%. LVEF has not changed significantly since prior study. The right ventricle is mildly dilated. Right ventricular systolic function is at the lower limits of normal. The right ventricular systolic pressure is estimated at 41 mmHg assuming a right atrial pressure of 3 mm Hg. Compared to the prior echo exam, there has been no change in the severity of pulmonary hypertension. The left atrium is moderately dilated. The right atrium is mildly dilated. There is trace mitral regurgitation. Compared to the prior echo study, there has been a decrease in the severity of mitral regurgitation. There is mild to moderate aortic stenosis. The calculated aortic valve area is 1.6 cm2. The peak aortic velocity is 2.5 m/sec. The peak aortic velocity on the previous exam was 2.2 m/sec. There has been no significant change since the previous study. There is mild aortic regurgitation. Compared to the prior echo study, there has been no change in the severity of aortic regurgitation. There is no other significant valvular heart disease. The ascending aorta is mildly enlarged. Reading Physician:DAVID Echocardiogram Report Name: DOLORES ROCK LStudy [place] e: 08/26/2016 Height: 70 in Hospital Exam Location: [facility] Weight: 303 lb Gender: Male BSA: 2.5 m2 : 1945 Age: 71 yrs BP: 184/93 mmHg Reason For Study: SOB Ordering Physician: Performed By: [facility] Interpretation Summary The left ventricle is normal in size. Left ventricular systolic function is borderline reduced. The ejection fraction is estimated to be 50-55%. There has been no significant change since the previous study. There are no focal wall motion abnormalities. Assessment of diastolic parameters suggests a pseudonormalization pattern, consistent with elevated filling pressures. The right ventricle is mildly dilated. Right ventricular systolic function is mildly reduced. The right ventricular systolic pressure is estimated at at least 43 mmHg assuming a right atrial pressure of 3 mm Hg. The left atrium is moderately dilated. Right atrial size is normal. There is moderate mitral regurgitation. There is mild to moderate aortic stenosis. There has been no significant change since the previous study. The peak aortic velocity is 2.24 m/sec. The peak aortic velocity on the previous exam was 2.0 m/sec. The aortic valve area is 1.4 centimeters squared by planimetry. There is mild aortic regurgitation. This is unchanged compared to the previous study. There is no other significant valvular heart disease. The ascending aorta is mildly enlarged. : 0.11 sec Reading Physician:PM Assessment & Plan # AMS likely due to acute on chronic systolic HF vs pain/anxiety meds vs stroke , POA resolved -- Trend cardiac enzymes to r/o ACS: ACS was ruled out -- CHF management as below -- MRI stroke protocol to r/o acute/sub acute stroke: ruled out, only showed chronic changes -- 11/18: Restarted quetiapine at 25 mg hs, pregabalin 50 mg TID. clonazepam 0.25 mg PO HS PRN and citalopram 40 mg QHS -- much improved on 11/19. agrees he is back to baseline -- Plan to increase home lasix to 40 mg QD -- Ordered Thyroid labs TSH, T4: WNL, AMS not likely due to thyroid dysfunction # congestive heart failure acute exacerbation systolic heart failure:POA Resolved -- I have reviewed all labs from the ER, prior echocardiogram, August Admission for CHF, EKG from the ED. I have reviewed the CXR from the ER myself, it showed CHF. -- Lasix IV 80 mg is Given in the ER patient is endorsing increased urination since the dose was given. He will be on IV 40 mg 2 times a day. -- Nitroglycerin when necessary -- Morphine 1-2 mg for dyspnea when necessary -- Daily weights, accurate I&O -- Tele monitoring -- Patient is an 40 mg Lasix daily plus daily potassium replacement -- 11/19 Echo: LVEF has not changed significantly since prior study. # Chronic history of PE, active -- Warfarin pharmacy consult -- INr is ordered>10: 2 units of FFM, 5 mg PO vitK were given on 11/17 -- Coumadin was stopped and patient is started on Eliquis 2.5 mg (renally dosed) # Acute on chronic renal failure: -- Renal function is worsening likey due to diuresis -- Switched patient to 40 mg daily Lasix -- Continue to follow renal function. P.m. labs are ordered: no change from am lab Hypokalemia -- Patient was repleted with by mouth this a.m. -- home potassium dosing changed to 10 meq daily # hematoma on R arm: due to supratherapeutic INR, at the IV site -- k pads -- US R Ext is ordered: Results is pending # strokelike symptoms/neurological deficits: Based on his 's prescription symptoms ongoing for 3-4 days, POA -- Followed by MRA of brain stroke protocol is ordered: negative for acute stroke # COPD, chronic -- ABG are ordered due to somnolence, neg for hypercapnia # CAD, chronic -- Continue home meds # hyperlipidemia, chronic -- Continue home meds # Sleep apnea, chronic -- Patient will need outpatient evaluation # chronic pain, chronic -- We will hold all home meds today due to AMS depression, chronic -- home meds restarted Patient Status: Patient was admitted under inpatient status with expected length of stay greater than two midnights due to severity of presenting symptoms , risk of adverse event, and complexity of treatment plan. Disposition: To home once his cr recovers or improves. He has been back and forth between 1.65 and 1.35 GI Prophylaxis: H2 jeannette VTE Prophylaxis: Other (Eliquis) Resuscitation Status: CPR: Attempt Resuscitation (he does not want to be intubated or ventilated, is his alternate decision maker) Time spent 25 min Danielle Bundy DO Nov 19, 2016 16:09
[2016-11-19 17:05] VITALS: BP 138/65; PULSE 61; RESP 20; O2SAT 95
--- NOTE | 2016-11-19 18:31 | NUR ---
Alert and orient Pt is alert and orient, pt is SBA to BR in his room. Pt is asking about being discharged. Let him know that the plan is for him to d/c tomorrow if he continues to do well.
[2016-11-19 19:32] VITALS: BP 159/69; PULSE 62; RESP 18; O2SAT 95
[2016-11-20] VITALS (7 sets, daily range): BP systolic 128–171; BP diastolic 58–74; PULSE 63–75; RESP 17–20; O2SAT 92–94
--- NOTE | 2016-11-20 01:17 | DRSVH ---
PROCEDURE: US EXTREMITY SONOGRAM LIMITED ([id number]) INDICATIONS: hematoma TECHNIQUE: Real-time scanning was performed of the right antecubital fossa region, with image docume ntation. COMPARISON: [facility] Ultrasound, US, EXTREMITY SONOGRAM LTD, 09/27/2014, 14:11. FINDINGS: No fluid collection or mass is seen in the region of interest in the right upper arm superi or to the antecubital fossa. IMPRESSION: No hematoma identified. No ultrasound abnormality. Dictated by: Kory TALLEY Interpreted: Salvador Rice MD on 11/19/2016 at 13:56 Approved by: Salvador Rice M.D. on 11/20/2016 at 1:15
[2016-11-20 06:10] LABS: INR 1.26 ratio
[2016-11-20] MEDS: Isosorbide Mononitrate 60 mg ER24 Tablet PO SCH (09:05)
--- NOTE | 2016-11-20 15:05 | PCM.PNMED ---
Subjective Date of Service Nov 20, 2016 Subjective Patient is seen and examined. The anal function worsened yesterday, and this a.m. no Lasix was given today. He says that he has no appetite for a while now and he occasionally gets nauseated. Is in a much better mood today and is willing to wait it out as his kidney function improves for discharge Exam Vital Signs Vital Sign - Last Date Time Temp Pulse Resp B/P Pulse Ox O2 Delivery O2 Flow Rate FiO2 11/20/16 07:33 Supplement Oxygen 11/20/16 05:46 67 11/20/16 05:23 36.6 18 171/58 93 11/17/16 19:54 1.00 Intake and Output 11/19/16 11/19/16 11/20/16 Cumulative From/Thru 15:00 23:00 07:00 11/17/16 12:36 - 11/20/16 06:15 Intake Total 700 ml 300 ml 3399 ml Output Total 500 ml 980 ml 7310 ml Balance 200 ml -680 ml -3911 ml Intake Oral 700 ml 300 ml 2940 ml IV Total 70 ml Packed Cells 200 ml FFP 189 ml Output Urine Total 500 ml 980 ml 7310 ml # Voids 2 # Bowel Movements 0 0 Exam Gen.: alert and awake today HEENT: NCAT Heart: Systolic murmur grade 1+ without radiation regular rate and rhythm lungs: crackles over R upper and lower lobes, neg for wheezes Abdomen: obese tenderness over right upper quadrant with deep palpation, negative for Ley sign Neck: neg for jvd Legs hemosiderosis swollen 1+ pitting edema bilaterally Vascular the poor dorsalis pedis pulses are palpable Neurology: no focal deficits psych negative for anxiety and agitation Skin: large hematoma on R upper arm, non tender IVs and Medications Medications Reviewed: Medications were reviewed in detail Lab and Diagnostics Result Diagram: 11/20/16 0507 11/20/16 0507 Cardiac Echo Impressions Interpretation Summary The left ventricle is mildly dilated which has slightly increased in size since prior study. Left ventricular systolic function is normal without focal wall motion abnormalities. The ejection fraction is estimated to be 55-60%. LVEF has not changed significantly since prior study. The right ventricle is mildly dilated. Right ventricular systolic function is at the lower limits of normal. The right ventricular systolic pressure is estimated at 41 mmHg assuming a right atrial pressure of 3 mm Hg. Compared to the prior echo exam, there has been no change in the severity of pulmonary hypertension. The left atrium is moderately dilated. The right atrium is mildly dilated. There is trace mitral regurgitation. Compared to the prior echo study, there has been a decrease in the severity of mitral regurgitation. There is mild to moderate aortic stenosis. The calculated aortic valve area is 1.6 cm2. The peak aortic velocity is 2.5 m/sec. The peak aortic velocity on the previous exam was 2.2 m/sec. There has been no significant change since the previous study. There is mild aortic regurgitation. Compared to the prior echo study, there has been no change in the severity of aortic regurgitation. There is no other significant valvular heart disease. The ascending aorta is mildly enlarged. Reading Physician:PM Echocardiogram Report Name: DOLORES ROCK LStudy [place] e: 08/26/2016 Height: 70 in Hospital Exam Location: [facility] Weight: 303 lb Gender: Male BSA: 2.5 m2 : 1945 Age: 71 yrs BP: 184/93 mmHg Reason For Study: SOB Ordering Physician: Performed By: [facility] Interpretation Summary The left ventricle is normal in size. Left ventricular systolic function is borderline reduced. The ejection fraction is estimated to be 50-55%. There has been no significant change since the previous study. There are no focal wall motion abnormalities. Assessment of diastolic parameters suggests a pseudonormalization pattern, consistent with elevated filling pressures. The right ventricle is mildly dilated. Right ventricular systolic function is mildly reduced. The right ventricular systolic pressure is estimated at at least 43 mmHg assuming a right atrial pressure of 3 mm Hg. The left atrium is moderately dilated. Right atrial size is normal. There is moderate mitral regurgitation. There is mild to moderate aortic stenosis. There has been no significant change since the previous study. The peak aortic velocity is 2.24 m/sec. The peak aortic velocity on the previous exam was 2.0 m/sec. The aortic valve area is 1.4 centimeters squared by planimetry. There is mild aortic regurgitation. This is unchanged compared to the previous study. There is no other significant valvular heart disease. The ascending aorta is mildly enlarged. : 0.11 sec Reading Physician:PM Assessment & Plan #Acute Cholecystitis: RUQ pain, nausea, fever , US finding of thickened GB wall , sludge -- US GB ordered and showed sludge and thickened GB wall -- CMP, CBC are ordered, patient also reported fever later in the day -- We will start patient on Unasyn 3 g every 8 -- Call Dr. Barr from surgery: Made him aware, he requested a HIDA scan as acute CHF sometimes gallbladder findings are not very specific -- HIDA scan is ordered for tomorrow a.m. patient is nothing by mouth except for medications -- Blood cultures are ordered prior to starting antibiotics # Acute on chronic renal failure: -- Renal function is worsening likey due to diuresis -- Switched patient to 40 mg daily Lasix -- Continue to follow renal function. P.m. labs are ordered: no change from am lab -- Urine urea and urine creatinine are ordered -- UA is ordered -- Renal ultrasound, phosphorus levels, mag levels, uric acid levels, urine eosinophils are ordered -- Nephrology consult: If his renal function is still worse tomorrow they will see the patient # AMS likely due to acute on chronic systolic HF vs pain/anxiety meds vs stroke , POA resolved -- Trend cardiac enzymes to r/o ACS: ACS was ruled out -- CHF management as below -- MRI stroke protocol to r/o acute/sub acute stroke: ruled out, only showed chronic changes -- 11/18: Restarted quetiapine at 25 mg hs, pregabalin 50 mg TID. clonazepam 0.25 mg PO HS PRN and citalopram 40 mg QHS -- much improved on 11/19. agrees he is back to baseline -- Plan to increase home lasix to 40 mg QD -- Ordered Thyroid labs TSH, T4: WNL, AMS not likely due to thyroid dysfunction # congestive heart failure acute exacerbation systolic heart failure:POA Resolved -- I have reviewed all labs from the ER, prior echocardiogram, August Admission for CHF, EKG from the ED. I have reviewed the CXR from the ER myself, it showed CHF. -- Lasix IV 80 mg is Given in the ER patient is endorsing increased urination since the dose was given. He will be on IV 40 mg 2 times a day. -- Nitroglycerin when necessary -- Morphine 1-2 mg for dyspnea when necessary -- Daily weights, accurate I&O -- Tele monitoring -- Patient is an 40 mg Lasix daily plus daily potassium replacement -- 11/19 US Echo: LVEF has not changed significantly since prior study. -- Lasix has been discontinued on 11/20 -- Nephrology consult in place due to renal dysfunction # Chronic history of PE, active -- Warfarin pharmacy consult -- INr is ordered>10: 2 units of FFM, 5 mg PO vitK were given on 11/17 -- Coumadin was stopped and patient is started on Eliquis 2.5 mg (renally dosed) Hypokalemia -- Patient was repleted with by mouth this a.m. -- home potassium dosing changed to 10 meq daily # hematoma on R arm: due to supratherapeutic INR, at the IV site -- k pads -- US R Ext is ordered: No hematoma # strokelike symptoms/neurological deficits: Based on his 's prescription symptoms ongoing for 3-4 days, POA -- Followed by MRA of brain stroke protocol is ordered: negative for acute stroke # COPD, chronic -- ABG are ordered due to somnolence, neg for hypercapnia # CAD, chronic -- Continue home meds # hyperlipidemia, chronic -- Continue home meds # Sleep apnea, chronic -- Patient will need outpatient evaluation # chronic pain, chronic -- We will hold all home meds today due to AMS depression, chronic -- home meds restarted Patient Status: Patient was admitted under inpatient status with expected length of stay greater than two midnights due to severity of presenting symptoms , risk of adverse event, and complexity of treatment plan. Disposition: To home once his cr recovers or improves. He has been back and forth between 1.65 and 1.35 GI Prophylaxis: H2 jeannette VTE Prophylaxis: Other (Eliquis) Resuscitation Status: CPR: Attempt Resuscitation (he does not want to be intubated or ventilated, is his alternate decision maker) Time spent 30 min Danielle Bundy DO Nov 20, 2016 15:05
[2016-11-20 15:28] LABS: Magnesium 1.6 mg/dL (1.6-2.6); Phosphorus 3.6 mg/dL (2.5-4.9)
--- NOTE | 2016-11-20 16:24 | NUR ---
Social Work: Readiness for Discharge D: EMR reviewed. Pt is a 71 y/o male admitted for CHF acute exacerbation, altered mental status per H&P. Pt is not medically stable, anticipate discharge in 1-2 more days. Pt's renal function continues to be monitored. Pt may benefit from HH RN to assist with management of pt's CHF. In multi-disciplinary rounds, SW acknowledged MD HH order, requested clarification regarding modalities, frequency, and duration. requested that SHOOTING GALLERY OPERATOR not act on this order at this time. SHOOTING GALLERY OPERATOR to await MD confirmation to act on HH orders. Pt's spouse anticipated to provide transport home via POV when pt is medically stable. SW will continue to follow. A: Pt who is independent at baseline. P: requested that SHOOTING GALLERY OPERATOR not act on HH order at this time. SHOOTING GALLERY OPERATOR to await MD confirmation to act on HH orders. Pt's spouse anticipated to provide transport home via POV when pt is medically stable. SW will continue to follow, R/O HH. SINDY Agrawal
--- NOTE | 2016-11-20 17:03 | DRSVH ---
PROCEDURE: US ABDOMEN INDICATIONS: RUQ pain, anorexia TECHNIQUE: Real-time scanning was performed of the abdominal and retroperitoneal organs, with image documentatio n. COMPARISON: [facility], US, US ABDOMEN, 08/28/2016, 10:38. FINDINGS: Liver length: 19.66 cm Gallbladder Wall Thickness: 4.30 mm CBD: 5.30 mm Spleen length: 10.59 cm Right kidney length: 11.90 cm Left kidney length: 11.99 cm Aorta(Proximal): 2.44 cm Aorta(Mid): 1.69 cm Aorta(Distal): 1.37 cm RCIA: 1.11 cm Liver: Liver is normal in size and homogeneous in echotexture. Gallbladder: Gallbladder is enlarged and gallbladder sludge is present. Gallbladder wall is thickene d measuring up to 4.6 mm. Biliary ducts: Intrahepatic bile ducts are non-dilated. Extrahepatic bile duct caliber is normal. Normal is 6-7 mm or less in diameter, or 10 mm or less post-cholecystectomy. Pancreas: Visualized portions of the pancreas are sonographically normal. Spleen: Spleen is normal in size and homogeneous in echotexture. Kidneys: Kidneys are normal in size and echotexture. No hydronephrosis or nephrolithiasis. No bailey d masses. Aorta: Visualized aorta is normal in caliber at less than 3 cm. Iliacs: Proximal common iliac arteries are normal in caliber at less than 2.5 cm. IVC: Intrahepatic inferior vena cava is patent. Miscellaneous: No free abdominal fluid. IMPRESSION: Abnormal appearance of the gallbladder wall which is hydropic and there is gallbladder sl udge as well as thickened gallbladder wall. Developing cholecystitis cannot be excluded and close cl inical correlation and follow up is recommended. Naomy Watkins RN given results by the bobbin drier at 1600 hrs. 10/20/2016. Dictated by: Kory TALLEY Interpreted: Marie Orlando MD on 11/20/2016 at 16:59 Transcribed by: NESTOR on 11/20/2016 at 17:02 Approved by: Marie Orlando M.D. on 11/20/2016 at 17:06
[2016-11-20] MEDS: Ampicillin-Sulbactam Inj 3,000 MG in 0.9% Sodium Chloride 100 ML IV SCH (20:01)
[2016-11-20 20:33] LABS: Mean Corpuscular Hemoglobin 30.5 pg (27.0-35.0)
[2016-11-20 22:49] LABS: APPEARANCE,URINE HAZY (CLEAR,HAZY); COLOR,URINE DARK YELLOW (YELLOW); OCCULT BLOOD,URINE LARGE (NEGATIVE)
[2016-11-20 22:50] LABS: ICTOTEST,URINE POSITIVE (Negative); UROBILINOGEN,URINE NORMAL (NORMAL)
[2016-11-21] VITALS (7 sets, daily range): BP systolic 124–169; BP diastolic 52–69; PULSE 57–73; RESP 18–20; O2SAT 93–96
--- NOTE | 2016-11-21 02:05 | NUR ---
Malaise/Diaphoretic At approximately 1830, patient became increasingly diaphoretic, febrile, and generally did not feel well. Patient had a difficult time ambulating to the sofa during linen change. Dr. Bundy notified. 2030 meds administered with sips of water. Patient now NPO. Blood cultures drawn. Other VSS normal with the exception of temperature. Patient appears drowsy. Call light within reach. Care continues.
[2016-11-21] MEDS: Ampicillin-Sulbactam Inj 3,000 MG in 0.9% Sodium Chloride 100 ML IV SCH ×3 (04:13→20:04)
[2016-11-21] MEDS: 0.9% Sodium Chloride 1,000 ML IV SCH ×2 (04:13→13:35)
[2016-11-21 07:53] LABS: Mean Corpuscular Hemoglobin 30.2 pg (27.0-35.0)
--- NOTE | 2016-11-21 11:50 | DRSVH ---
PROCEDURE: NM HIDA SCAN WITHOUT CCK RADIOPHARMACEUTICAL: 5.4 mCi Tc-99m mebrofenin IV. INDICATIONS: CONCERN FOR CHOLECYSTITIS TECHNIQUE: Following intravenous administration of Tc-99m mebrofenin, sequential anterior abdominal images were obtained through 110 minutes. However at this time the patient declined to continue with the examinat ion COMPARISON: None. FINDINGS: There is normal tracer uptake and excretion by the liver. Possible tracer activity seen wi thin the gallbladder. There is tracer activity seen within the extrahepatic bile ducts. There is visu alized tracer excretion into duodenum. No CCK was administered as the patient declined to finish the examination. IMPRESSION: Incomplete examination as the patient declined to finish the study or receive CCK. Partial tracer activity seen in the gallbladder and bowel, which argues against complete or high-grad e obstruction. However, please correlate clinically and with laboratory data for acute or chronic cho lecystitis since the exam is technically nondiagnostic (and technically presence of tracer activity w ithin the gallbladder cannot be definitively determined). Dictated by: Jose Eduardo Quintanilla M.D. on 11/21/2016 at 11:43 Approved by: Jose Eduardo Quintanilla M.D. on 11/21/2016 at 11:49
[2016-11-21] MEDS: Isosorbide Mononitrate 60 mg ER24 Tablet PO SCH (12:01)
[2016-11-21] MEDS ORDERED: LORazepam 0.5 mg Tablet PO ONE (13:10)
--- NOTE | 2016-11-21 13:26 | CONS ---
[address] [address] CONSULTATION REPORT PATIENT: DOLORES ROCK : 1945 MR#: [id number] ADMIT: 11/17/2016 JOB ID: [id number] DATE OF SERVICE: 11/21/2016 REQUESTING PHYSICIAN: Danielle Bundy DO HISTORY OF PRESENT ILLNESS: This is a 71-year-old man whom I was asked to see for possible cholecystitis. He was admitted on November 17, 2016. But yesterday, he was noted to have right upper quadrant tenderness. An abdominal ultrasound was obtained which showed a mildly thickened gallbladder wall of 4.6 mm. There was sludge present. The sonographic Ley sign was negative. Bile ducts appeared normal. A HIDA scan was obtained which was an incomplete study because the patient refuse cholecystokinin, but there was contrast that went into the gallbladder, and there was also contrast that went into the duodenum. This morning, he has a mildly elevated bilirubin of 1.9, but the rest of his liver function tests are normal. He currently denies abdominal pain. He has no nausea or vomiting. PAST MEDICAL HISTORY: Illnesses: 1. Obesity. 2. Systolic heart failure. 3. History of pulmonary embolus. 4. COPD. 5. Hyperlipidemia. 6. Coronary artery disease, status post TX and stenting. 7. Spinal stenosis. 8. GERD. 9. Dementia. 10. Depression. 11. Osteoarthritis. OPERATIONS: No history of intra-abdominal operations. REVIEW OF SYSTEMS: Currently regarding his abdomen, otherwise negative. PHYSICAL EXAMINATION: BMI 39. Temperature 36.6, brachial blood pressure 124/69, pulse 64, respiratory rate 18, O2 sat on room air 94%. Abdomen: He is obese. Today, his abdomen is soft, nontender. No right upper quadrant tenderness. LABORATORY RESULTS: White blood cell count is 20.6, hematocrit is 39.5, platelet count 153,000. His INR is 126. It was greater than 10 on admission. Bilirubin is 1.9. AST 21, ALT 22, alk phos 95. IMPRESSION: He does not have cholecystitis. Although his gallbladder wall is slightly thickened and he does have gallbladder sludge, I think it is asymptomatic. Today, he denies any abdominal pain, and also he has no right upper quadrant tenderness. His gallbladder ultrasound showed a negative sonographic Ley sign. Although the HIDA scan was incomplete, there was contrast going into the gallbladder. Therefore, he does not have an obstructed cystic duct. His elevated bilirubin is not explained by anything in his biliary tract or his gallbladder, as his AST and ALT are normal. Perhaps he has Gilbert's disease, so I really do not know the explanation for that, but I know for sure that he does not need to have his gallbladder out. I will not actively follow. Thank you for asking us to evaluate him.
--- NOTE | 2016-11-21 15:14 | NUR ---
Diaphoretic Pt c/o hot sweaty and diaphoretic. Pt states that he passed out last night and this was how he felt prior. Vitals take and all WNL including temp. Blood sugar taken 129. Cool rag placed over pts head. Pt made comfortable and placed in bed HOB @ 45deg. S/Sx slowly resolving. A&OX4. Denies CP, Nausea. Endorses appetite changes, lightheaded at times and SOB with exertion. Placed on 1L NC supplemental oxygen. Care continues
[2016-11-21] MEDS: Pantoprazole 4 mg/mL 10 mL Inj IVPUSH SCH (16:54)
--- NOTE | 2016-11-21 16:59 | DRSVH ---
PROCEDURE: X-RAY CHEST, TWO VIEWS ([id number]) INDICATIONS: fever work up TECHNIQUE: 2 views of the chest were acquired. COMPARISON: [facility], CR, XR CHEST 1VW (PORTABLE), 11/17/2016, 12:45. [facility], CR, XR CHEST 2VW, 09/20/2016, 15:17. FINDINGS: Surgical changes and devices: Left shoulder arthroplasty redemonstrated. Lungs and pleura: No pleural effusions or pneumothorax. Elevation of right hemidiaphragm redemonstr ated and probable subsegmental right basilar atelectasis. Lungs otherwise are clear. Mediastinum: Mediastinal contours are normal. Heart size is normal. Bones and chest wall: No suspicious bony abnormalities. Soft tissues appear unremarkable. IMPRESSION: 1. Elevation of the right hemidiaphragm with right basilar subsegmental atelectasis otherwise lungs a re clear. Dictated by: Kory Andres RRA Interpreted: Florinda Earl MD on 11/21/2016 at 14:51 Approved by: Florinda Earl MD, PhD on 11/21/2016 at 16:56
--- NOTE | 2016-11-21 20:38 | PCM.PNMED ---
Subjective Date of Service Nov 21, 2016 Subjective Patient is seen and examined. Still endorsing nausea and anorexia but no longer has abdominal pain. He says he wants to go home. No other concerns. Exam Vital Signs Vital Sign - Last Date Time Temp Pulse Resp B/P Pulse Ox O2 Delivery O2 Flow Rate FiO2 11/21/16 20:11 Supplement Oxygen 11/21/16 18:07 36.9 57 20 141/55 95 1.00 Intake and Output 11/20/16 11/20/16 11/21/16 Cumulative From/Thru 15:00 23:00 07:00 11/17/16 12:36 - 11/21/16 06:26 Intake Total 700 ml 416 ml 4515 ml Output Total 475 ml 7785 ml Balance 225 ml 416 ml -3270 ml Intake Oral 700 ml 3640 ml IV Total 416 ml 486 ml Packed Cells 200 ml FFP 189 ml Output Urine Total 475 ml 7785 ml # Voids 2 # Bowel Movements 0 0 Exam Gen.: alert and awake today HEENT: NCAT Heart: Systolic murmur grade 1+ without radiation regular rate and rhythm lungs: CTA, neg for wheezes Abdomen: obese, non tender over right upper quadrant with deep palpation, negative for Ley sign Neck: neg for jvd Legs hemosiderosis swollen 1+ pitting edema bilaterally, Much improved edema Vascular: doesalis pedis pulses are palpable Neurology: no focal deficits psych mildly agitated Skin: warm and tender IVs and Medications IV Fluids NSS 80 cc/hr Medications Reviewed: Medications were reviewed in detail Lab and Diagnostics Result Diagram: 11/21/1672411/21/16724 Cardiac Echo Impressions Interpretation Summary The left ventricle is mildly dilated which has slightly increased in size since prior study. Left ventricular systolic function is normal without focal wall motion abnormalities. The ejection fraction is estimated to be 55-60%. LVEF has not changed significantly since prior study. The right ventricle is mildly dilated. Right ventricular systolic function is at the lower limits of normal. The right ventricular systolic pressure is estimated at 41 mmHg assuming a right atrial pressure of 3 mm Hg. Compared to the prior echo exam, there has been no change in the severity of pulmonary hypertension. The left atrium is moderately dilated. The right atrium is mildly dilated. There is trace mitral regurgitation. Compared to the prior echo study, there has been a decrease in the severity of mitral regurgitation. There is mild to moderate aortic stenosis. The calculated aortic valve area is 1.6 cm2. The peak aortic velocity is 2.5 m/sec. The peak aortic velocity on the previous exam was 2.2 m/sec. There has been no significant change since the previous study. There is mild aortic regurgitation. Compared to the prior echo study, there has been no change in the severity of aortic regurgitation. There is no other significant valvular heart disease. The ascending aorta is mildly enlarged. Reading Physician:DAVID Echocardiogram Report Name: DOLORES ROCK LStudy [place] e: 08/26/2016 Height: 70 in Hospital Exam Location: [facility] Weight: 303 lb Gender: Male BSA: 2.5 m2 : 1945 Age: 71 yrs BP: 184/93 mmHg Reason For Study: SOB Ordering Physician: Performed By: Serena [facility] Interpretation Summary The left ventricle is normal in size. Left ventricular systolic function is borderline reduced. The ejection fraction is estimated to be 50-55%. There has been no significant change since the previous study. There are no focal wall motion abnormalities. Assessment of diastolic parameters suggests a pseudonormalization pattern, consistent with elevated filling pressures. The right ventricle is mildly dilated. Right ventricular systolic function is mildly reduced. The right ventricular systolic pressure is estimated at at least 43 mmHg assuming a right atrial pressure of 3 mm Hg. The left atrium is moderately dilated. Right atrial size is normal. There is moderate mitral regurgitation. There is mild to moderate aortic stenosis. There has been no significant change since the previous study. The peak aortic velocity is 2.24 m/sec. The peak aortic velocity on the previous exam was 2.0 m/sec. The aortic valve area is 1.4 centimeters squared by planimetry. There is mild aortic regurgitation. This is unchanged compared to the previous study. There is no other significant valvular heart disease. The ascending aorta is mildly enlarged. : 0.11 sec Reading Physician:PM Assessment & Plan #Nausea: Patient and c/o of this -- Consulted GI for an eGD. They do not feel this needs to be done emergently. Also need to take into account patient's risk of stopping anticoagulation. -- They recommend a barium swallow but the study is not possible over the weekend. We appreciate their recommendations. -- Cont Protonix IV 40 mg BIDAC and see if this gives relief #Fever on 11/20/16 evening: Still do not know the etiology -- UA cx neg, CXR 11/21 neg, RESP PNL neg. -- Blood cx x 2 are still not growing any organisms. -- Will d/c abx if no cause found and blood cx neg for 3 days. Elevated Bilirubin: Could be reactive -- Ordered direct bilirubin levels # Acute on chronic renal failure: Likely pre-renal from over diuresis and dehydration, improving -- All lasix is held at this point -- Continue to follow renal function. -- Urine urea and urine creatinine are ordered: Urine urea is still pending -- UA is ordered: cx is neg so far -- Renal ultrasound: wnl, phosphorus levels wnl, mag levels wnl, urine eosinophils are positive but non-specific -- Nephrology consult: If his renal function is still worse tomorrow they will see the patient # AMS likely due to acute on chronic systolic HF vs pain/anxiety meds vs stroke , POA resolved -- Trend cardiac enzymes to r/o ACS: ACS was ruled out -- CHF management as below -- MRI stroke protocol to r/o acute/sub acute stroke: ruled out, only showed chronic changes -- 11/18: Restarted quetiapine at 25 mg hs, pregabalin 50 mg TID. clonazepam 0.25 mg PO HS PRN and citalopram 40 mg QHS -- much improved on 11/19. agrees he is back to baseline -- Plan to increase home lasix to 40 mg QD -- Ordered Thyroid labs TSH, T4: WNL, AMS not likely due to thyroid dysfunction # Congestive heart failure acute exacerbation systolic heart failure:POA Resolved -- I have reviewed all labs from the ER, prior echocardiogram, August Admission for CHF, EKG from the ED. I have reviewed the CXR from the ER myself, it showed CHF. -- Lasix IV 80 mg is Given in the ER patient is endorsing increased urination since the dose was given. He will be on IV 40 mg 2 times a day. -- Nitroglycerin when necessary -- Morphine 1-2 mg for dyspnea when necessary -- Daily weights, accurate I&O -- Tele monitoring -- All lasix is being withheld due to acute renal injury -- 11/19 US Echo: LVEF has not changed significantly since prior study. -- # Chronic history of PE, active -- Warfarin pharmacy consult -- INr is ordered>10: 2 units of FFM, 5 mg PO vitK were given on 11/17 -- Coumadin was stopped and patient is started on Eliquis 2.5 mg (renally dosed) Hypokalemia: resolved -- Patient was repleted with by mouth this a.m. -- home potassium dosing changed to 10 meq daily -- Cont to monitor # hematoma on R arm: due to supratherapeutic INR, at the IV site -- k pads -- US R Ext is ordered: No hematoma # strokelike symptoms/neurological deficits: Based on his 's prescription symptoms ongoing for 3-4 days, POA -- Followed by MRA of brain stroke protocol is ordered: negative for acute stroke # COPD, chronic -- ABG are ordered due to somnolence, neg for hypercapnia # CAD, chronic -- Continue home meds # hyperlipidemia, chronic -- Continue home meds # Sleep apnea, chronic -- Patient will need outpatient evaluation # chronic pain, chronic -- We will hold all home meds today due to AMS depression, chronic -- home meds restarted #Acute Cholecystitis: Ruled out -- Patient no longer has RUQ pain though he continues to ahve nausea. -- US GB showed sludge and thickened gal bladder but no stones -- HIDA scan is incomplete but shows no evidence of dyskinesia. -- Reported fever later in the day 11/20 -- Blood cx were drawn and patient was started on Unasyn 3 g every 8 -- Dr. Eagle from surgery has seen the pt and signed off as he does not believe pt will need cholecystectomy Patient Status: Patient was admitted under inpatient status with expected length of stay greater than two midnights due to severity of presenting symptoms , risk of adverse event, and complexity of treatment plan. Disposition: To home once his cr recovers or improves. He has been back and forth between 1.65 and 1.35.. WE also need to make sure he has neg blood cx for 3 days GI Prophylaxis: H2 jeannette VTE Prophylaxis: Other (Eliquis) VTE Mechanical Devices: Intermittant Pneumatic CD Resuscitation Status: CPR: Attempt Resuscitation (he does not want to be intubated or ventilated, is his alternate decision maker) Time spent 30 min Danielle Bundy DO Nov 21, 2016 20:38
--- NOTE | 2016-11-21 21:35 | DRSVH ---
PROCEDURE: X-RAY KUB ([id number]) INDICATIONS: nausea TECHNIQUE: One view of the abdomen acquired. COMPARISON: None. FINDINGS: Surgical changes and devices: None. Bowel: Bowel gas pattern is normal. Soft tissues: No suspicious abdominal calcifications. Visualized solid organ contours appear normal in size. Nonspecific pelvic and vascular calcifications Bones: No suspicious bony lesions. Bilateral hip joint degeneration and discogenic changes IMPRESSION: No evidence of bowel obstruction. Dictated by: Jose Eduardo Quintanilla M.D. on 11/21/2016 at 21:31 Approved by: Jose Eduardo Quintanilla M.D. on 11/21/2016 at 21:33
[2016-11-21 23:43] LABS: Bilirubin, Direct 0.6 mg/dL (0.0-0.3)
[2016-11-22] VITALS (8 sets, daily range): BP systolic 119–161; BP diastolic 55–66; PULSE 54–59; RESP 16–20; O2SAT 93–96
[2016-11-22] MEDS: 0.9% Sodium Chloride 1,000 ML IV SCH (02:05)
[2016-11-22] MEDS: Ampicillin-Sulbactam Inj 3,000 MG in 0.9% Sodium Chloride 100 ML IV SCH ×2 (04:06→12:56)
[2016-11-22 05:52] LABS: Mean Corpuscular Hemoglobin 29.9 pg (27.0-35.0); Mean Corpuscular Volume 93.7 fL (81-100)
--- NOTE | 2016-11-22 06:13 | NUR ---
MENTATION/FEVER PT RUNNING LOW GRADE FEVER AT START OF SHIFT AND VERY DIAPHORETIC. WITHIN 1HR HIS FEVER HAD SUBSIDED. PT CONTINUED TO BE DIAPHORETIC. EPISODE OF INCONTINENCE OF URINE HE WAS SLEEPING VERY SOUNDLY. PT IS A/O X3 AND IS MAKING NEEDS KN0WN, 0 CONFUSION NOTED. 0 C/O PAIN, CONTINUES ON 2L O2 VIA NC FOR COMFORT AND SOB. CARE CONTINUES
[2016-11-22] MEDS: Pantoprazole 4 mg/mL 10 mL Inj IVPUSH SCH (09:03)
[2016-11-22] MEDS: Isosorbide Mononitrate 60 mg ER24 Tablet PO SCH (09:06)
--- NOTE | 2016-11-22 14:42 | PCM.PNMED ---
Subjective Date of Service Nov 22, 2016 Subjective Patient is seen and examined, he says he really would like to go home. I explained to him Dr. Hedrick will see him to help improve his renal function. He says nausea resolved but still has no appetite. Does not calz[place] ve bad taste in mouth, no constipation. Fevers have resolved Exam Vital Signs Vital Sign - Last Date Time Temp Pulse Resp B/P Pulse Ox O2 Delivery O2 Flow Rate FiO2 11/22/16 13:52 37.2 54 20 119/55 94 Room Air 11/22/16 05:05 1.00 Intake and Output 11/21/16 11/21/16 11/22/16 Cumulative From/Thru 15:00 23:00 07:00 11/17/16 12:36 - 11/22/16 05:19 Intake Total 0 ml 1105 ml 890 ml 6510 ml Output Total 400 ml 950 ml 9135 ml Balance -400 ml 155 ml 890 ml -2625 ml Intake Oral 0 ml 400 ml 4040 ml IV Total 705 ml 890 ml 2081 ml Packed Cells 200 ml FFP 189 ml Output Urine Total 400 ml 950 ml 9135 ml # Voids 3 5 # Bowel Movements 1 1 Exam Gen.: alert and awake today HEENT: NCAT Heart: Systolic murmur grade 1+ without radiation regular rate and rhythm lungs: CTA, neg for wheezes Abdomen: obese, non tender over right upper quadrant with deep palpation, negative for Ley sign Neck: neg for jvd Legs hemosiderosis, Much improved edema Vascular: dorsalis pedis pulses are palpable Neurology: no focal deficits psych mildly depressed mood Skin: warm and tender, R arm ecchymoses improving IVs and Medications IV Fluids None Medications Reviewed: Medications were reviewed in detail Lab and Diagnostics Result Diagram: 11/22/1652911/22/16 0530 X-Rays, CTs and MRIs PROCEDURE: X-RAY KUB ([id number]) INDICATIONS: nausea TECHNIQUE: One view of the abdomen acquired. COMPARISON: None. FINDINGS: Surgical changes and devices: None. Bowel: Bowel gas pattern is normal. Soft tissues: No suspicious abdominal calcifications. Visualized solid organ contours appear normal in size. Nonspecific pelvic and vascular calcifications Bones: No suspicious bony lesions. Bilateral hip joint degeneration and discogenic changes IMPRESSION: No evidence of bowel obstruction. Dictated by: Jose Eduardo Quintanilla M.D. on 11/21/2016 at 21:31 Approved by: Jose Eduardo Quintanilla M.D. on 11/21/2016 at 21:33 Cardiac Echo Impressions Interpretation Summary The left ventricle is mildly dilated which has slightly increased in size since prior study. Left ventricular systolic function is normal without focal wall motion abnormalities. The ejection fraction is estimated to be 55-60%. LVEF has not changed significantly since prior study. The right ventricle is mildly dilated. Right ventricular systolic function is at the lower limits of normal. The right ventricular systolic pressure is estimated at 41 mmHg assuming a right atrial pressure of 3 mm Hg. Compared to the prior echo exam, there has been no change in the severity of pulmonary hypertension. The left atrium is moderately dilated. The right atrium is mildly dilated. There is trace mitral regurgitation. Compared to the prior echo study, there has been a decrease in the severity of mitral regurgitation. There is mild to moderate aortic stenosis. The calculated aortic valve area is 1.6 cm2. The peak aortic velocity is 2.5 m/sec. The peak aortic velocity on the previous exam was 2.2 m/sec. There has been no significant change since the previous study. There is mild aortic regurgitation. Compared to the prior echo study, there has been no change in the severity of aortic regurgitation. There is no other significant valvular heart disease. The ascending aorta is mildly enlarged. Reading Physician:PM Echocardiogram Report Name: DOLORES ROCK LStudy [place] e: 08/26/2016 Height: 70 in Hospital Exam Location: [facility] Weight: 303 lb Gender: Male BSA: 2.5 m2 : 1945 Age: 71 yrs BP: 184/93 mmHg Reason For Study: SOB Ordering Physician: Performed By: [facility] Interpretation Summary The left ventricle is normal in size. Left ventricular systolic function is borderline reduced. The ejection fraction is estimated to be 50-55%. There has been no significant change since the previous study. There are no focal wall motion abnormalities. Assessment of diastolic parameters suggests a pseudonormalization pattern, consistent with elevated filling pressures. The right ventricle is mildly dilated. Right ventricular systolic function is mildly reduced. The right ventricular systolic pressure is estimated at at least 43 mmHg assuming a right atrial pressure of 3 mm Hg. The left atrium is moderately dilated. Right atrial size is normal. There is moderate mitral regurgitation. There is mild to moderate aortic stenosis. There has been no significant change since the previous study. The peak aortic velocity is 2.24 m/sec. The peak aortic velocity on the previous exam was 2.0 m/sec. The aortic valve area is 1.4 centimeters squared by planimetry. There is mild aortic regurgitation. This is unchanged compared to the previous study. There is no other significant valvular heart disease. The ascending aorta is mildly enlarged. : 0.11 sec Reading Physician:PM Assessment & Plan #Nausea: Patient and c/o of this resolved on 11/22 -- Consulted GI for an eGD. They do not feel this needs to be done emergently. Also need to take into account patient's risk of stopping anticoagulation. -- They recommend a barium swallow but the study is not possible over the weekend. We appreciate their recommendations. -- Cont Protonix IV 40 mg BIDAC seems to help as nausea has resolved #Fever on 11/20/16 evening: Still do not know the etiology, could be from ecoli < [id number] CFU of UA cx result on 11/22 -- UA cx neg, CXR 11/21 neg, RESP PNL neg. -- Blood cx x 2 are still not growing any organisms. -- Switched him to ceftriaxone as Nephro is concerned about urine eosinophilia -- Will await urine sensitivities Elevated Bilirubin: Could be reactive, resolved on 11/22 -- Direct bilirubin levels high 11/21 # Acute on chronic renal failure: Likely pre-renal from over diuresis and dehydration, his Cr is not moving at 1.85 -- All lasix is held at this point -- Continue to follow renal function. -- Urine urea and urine creatinine are ordered: -- UA is ordered: cx grew E Coli though < [id number] CFU -- Renal ultrasound: wnl, phosphorus levels wnl, mag levels wnl, urine eosinophils are positive but non-specific (discontinued unasyn) -- Nephrology consult: Appreciate their recommendations # AMS likely due to acute on chronic systolic HF vs pain/anxiety meds vs stroke , POA resolved -- Trend cardiac enzymes to r/o ACS: ACS was ruled out -- CHF management as below -- MRI stroke protocol to r/o acute/sub acute stroke: ruled out, only showed chronic changes -- 11/18: Restarted quetiapine at 25 mg hs, pregabalin 50 mg TID. clonazepam 0.25 mg PO HS PRN and citalopram 40 mg QHS -- much improved on 11/19. agrees he is back to baseline -- Plan to increase home lasix to 40 mg QD -- Ordered Thyroid labs TSH, T4: WNL, AMS not likely due to thyroid dysfunction # Congestive heart failure acute exacerbation systolic heart failure:POA Resolved -- I have reviewed all labs from the ER, prior echocardiogram, August Admission for CHF, EKG from the ED. I have reviewed the CXR from the ER myself, it showed CHF. -- Was treated with Luis nd PO lasix, now holding off due to renal failure -- Nitroglycerin when necessary -- Morphine 1-2 mg for dyspnea when necessary -- Daily weights, accurate I&O -- Tele monitoring -- All lasix is being withheld due to acute renal injury -- 11/19 US Echo: LVEF has not changed significantly since prior study. -- # Chronic history of PE, active -- Warfarin pharmacy consult -- INr is ordered>10: 2 units of FFM, 5 mg PO vitK were given on 11/17 -- Coumadin was stopped and patient is started on Eliquis 2.5 mg (renally dosed) Hypokalemia: resolved -- Patient was repleted with by mouth this a.m. -- home potassium dosing changed to 10 meq daily -- Cont to monitor # hematoma on R arm: due to supratherapeutic INR, at the IV site -- k pads -- US R Ext is ordered: No hematoma -- Improving # strokelike symptoms/neurological deficits: Based on his 's prescription symptoms ongoing for 3-4 days, POA -- Followed by MRA of brain stroke protocol is ordered: negative for acute stroke # COPD, chronic -- ABG are ordered due to somnolence, neg for hypercapnia # CAD, chronic -- Continue home meds # hyperlipidemia, chronic -- Continue home meds # Sleep apnea, chronic -- Patient will need outpatient evaluation # chronic pain, chronic -- We will hold all home pain meds -- He is not even asking... depression, chronic -- home meds restarted #Acute Cholecystitis: Ruled out -- Patient no longer has RUQ pain though he continues to ahve nausea. -- US GB showed sludge and thickened gal bladder but no stones -- HIDA scan is incomplete but shows no evidence of dyskinesia. -- Reported fever later in the day 11/20 -- Blood cx were drawn and patient was started on Unasyn 3 g every 8 -- Dr. Eagle from surgery has seen the pt and signed off as he does not believe pt will need cholecystectomy Patient Status: Patient was admitted under inpatient status with expected length of stay greater than two midnights due to severity of presenting symptoms , risk of adverse event, and complexity of treatment plan. Disposition: To home once his cr recovers or improves. He has been back and forth between 1.65 and 1.35.. WE also need to make sure he has neg blood cx for 3 days Pain Evaluation: Other (he has no pain) GI Prophylaxis: H2 jeannette VTE Prophylaxis: Other (Eliquis) VTE Mechanical Devices: Intermittant Pneumatic CD Resuscitation Status: CPR: Attempt Resuscitation (he does not want to be intubated or ventilated, is his alternate decision maker) Time spent 30 min Danielle Bundy DO Nov 22, 2016 14:42
[2016-11-22 15:20] LABS: BASOPHILS % (AUTO) 0 % (0-3); EOSINOPHILS % (AUTO) 1 % (0-5); MONOCYTES % (AUTO) 10 % (4-12); NEUTROPHILS % (AUTO) 81 % (40-74)
--- NOTE | 2016-11-22 15:22 | CONS ---
[address] [address] CONSULTATION REPORT PATIENT: DOLORES ROCK : 1945 MR#: [id number] ADMIT: 11/17/2016 JOB ID: [id number] DATE OF SERVICE: 11/22/2016 REQUESTING PHYSICIAN: Dr. Bundy. REASON FOR CONSULTATION: Management of chronic kidney disease. CHIEF COMPLAINT: Shortness of breath. PRESENT ILLNESS: This is a very pleasant, 71-year-old, male with significant past medical history of chronic pulmonary embolism, CHF, COPD, chronic kidney disease stage 3, hypertension, coronary artery disease, status post stenting, obstructive sleep apnea, who came to the hospital due to shortness of breath and altered mental status. The patient reports worsening shortness of breath on exertion over the past three weeks. His reported that he also had lower extremity swelling. He reports history of chronic slurred speech. However, the is very concerned and afraid he may have an acute stroke, and they brought him to the emergency department. The patient is known to have CHF with ejection fraction of 50% to 55%. He was admitted at the hospital in August 2016 due to CHF exacerbation. He is a patient of Dr. Keely Silveira. The last visit with Dr. Silveira was on October 09, 2016. He was doing well at that time. No significant change was done during that visit. The patient reports having facial swelling over the past couple of months along with the slurred speech. The CT of the brain was done on November 17, 2016, when he came to the hospital which showed no acute intracranial process. The patient is known to have chronic kidney disease stage 3. He had episode of acute kidney injury in 2010. At that time, he had vancomycin-induced nephrotoxicity. His serum creatinine peaked at 7.3 in April 2011. The patient has seen Dr. Huston. His baseline serum creatinines have ranged between 1.6-1.8. This admission, patient was found to have elevated proBNP. He received IV diuretics and it was discontinued when the creatinine shankar to 2.06. Two days ago, patient developed right upper quadrant pain, sonogram showed bile sludge. He also has episode of nausea and poor appetite. The patient was evaluated by Dr. Irvin Eagle. Patient found that he has no acute cholecystitis. During my visit, patient feeling better overall. He no longer has nausea. He has no chest pain. No shortness of breath. He is on full liquid diet. He reported that his urine color is quite dark. He has no dysuria, no difficulty urinating. PAST MEDICAL HISTORY: 1. Diastolic heart failure with ejection fraction 50% to 55%. 2. Chronic kidney disease stage 3. 3. Obesity. 4. Coronary artery disease, status post NE and stenting. 5. History of chronic pulmonary embolism. 6. COPD. 7. Dyslipidemia. 8. Hypothyroid. 9. Depression. 10. Hypertension. SURGICAL HISTORY: 1. Status post left heart catheterization and cardiac stenting. 2. Status post tonsillectomy. 3. Status post right hernia repair. 4. Status post left femur ORIF. 5. Left rotator cuff surgery. 6. Left total knee replacement. SOCIAL HISTORY: Denies current use of alcohol, tobacco, or illicit drugs. FAMILY HISTORY: Positive for cardiovascular disease in his father and Alzheimer's in his mother. ALLERGIES: 1. BACITRACIN. 2. CODEINE. 3. NEOMYCIN,. 4. POLYMYXIN B. 5. VANCOMYCIN. REVIEW OF SYSTEMS: Fourteen-point review of system was performed. PHYSICAL EXAMINATION: Vitals: Temperature 37.2, pulse 54, respiratory 20, blood pressure 119/55, O2 sat 94% on room air. General appearance: Awake, alert, oriented x3. No acute distress. Obese. HEENT: No pallor. No jaundice, no JVD. No lymphadenopathy. No thyroid enlargement. Heart: Regular rhythm. Normal S1, S2. Distant heart sounds. No murmurs, rubs, or gallops. Lungs: Decreased breath sounds at bases. No wheezing. No rhonchi. Abdomen: Soft, active bowel sounds. Nontender. Nondistended. No hepatosplenomegaly. Extremities: Trace edema on the left lower extremity. Surgical scar on the left knee. Dry, clean and intact. LABORATORY: Sodium 143, potassium 3.6, chloride 103, bicarb 24, BUN 31, creatinine 1.85. Calcium 8.6. Total bilirubin 1.2. AST 19, ALT 18. Alkaline phos 89, albumin 3.3. ASSESSMENT: 1. Acute kidney injury on chronic kidney disease. The patient initially received IV diuretics and that led to rising of serum creatinine to 2.06. The medication was stopped. His current serum creatinine is 1.85 which is relatively stable. Of note, his serum creatinine has ranged between 1.6-1.8. I would like to check a postvoid residual to rule out any bladder outlet obstruction. The patient appears to be euvolemic. I would continue to hold diuretics, hold normal saline infusion. Just to wait for his body to re-equilibrate. 2. History of hypertension, relatively stable. 3. Nausea, unclear etiology. However, resolved. 4. Acute CHF exacerbation, improved. 5. Chronic pulmonary embolism. 6. COPD. 7. Coronary artery disease. 8. Graft planned. 9. Positive urine eosinophils. We will repeat another urine test. Repeat urine eosinophils. Will switch IV Protonix to H2 jeannette since this medication to may cause kidney injury. We will repeat CBC with differential. Recommend to switch Unasyn to fluoroquinolone if possible since acute interstitial nephritis is possible.
[2016-11-22] MEDS: cefTRIAXone Inj 2,000 MG in Dextrose 5% Minibag Plus 50 ML IV SCH (16:25)
--- NOTE | 2016-11-22 16:36 | NUR ---
Social Work:Continued Discharge Planning D: EMR reviewed. Pt is on day 4 of hospitalization. Per MD in AM multi-disciplinary rounds, pt will continue ABX at hospital for 3 days and will received Barium study on 11/24. As of 11/22, per MD, home health is not medically necessary for pt at discharge. Pt's spouse anticipated to provide transport home via POV when pt is medically stable. SW will continue to follow. A: Pt who is independent at baseline. P: Pt's spouse anticipated to provide transport home via POV when pt is medically stable. MD does not believe home health is medically necessary for pt as of 11/22. SW will continue to follow. SINDY Hutchison
--- NOTE | 2016-11-22 18:20 | NUR ---
Anx / Ambulation Some anxiety noted and discussed with pt his concerns regarding his health and care. Educated pt regarding Abx and how they work. Spoke with him regarding the fact that he does seem to be improving and is for sure getting around better. Pt received shower today and shaved which helped him feel better. Pt voiced concern regarding the fact that he isn't nauseous per-say but just no appetite which started after noticing his weight and bad health a month or so ago. Pt states since he realized this then he hasn't had much of an appetite at all. Discussed with pt the fact that we need to see him eat something and he needs the nutrition of some food. Pt stated that he understood and would try and eat more. Fww was found and adjusted for pt use. Pt ambulated with FWW and steady gait around halls with . Pt seems in better spirits this evening. Care continues
[2016-11-23 00:56] VITALS: BP 142/71; PULSE 62; RESP 20; O2SAT 94
--- NOTE | 2016-11-23 02:34 | CONS ---
[address] [address] CONSULTATION REPORT PATIENT: DOLORES ROCK : 1945 MR#: [id number] ADMIT: 11/17/2016 JOB ID: [id number] DATE OF SERVICE: REASON FOR CONSULTATION: Nausea. REQUESTING PHYSICIAN: Danielle Bundy DO HISTORY OF PRESENTING ILLNESS: The patient is a very pleasant, 71-year-old gentleman, with a history of, he states, lupus anticoagulant, chronic pulmonary embolism, CHF, COPD, chronic kidney disease, hypertension, coronary artery disease, status post stenting, obstructive sleep apnea, who presented to the hospital with shortness of breath and altered mental status. His symptoms subsequently improved, but approximately 2-3 days ago, developed right upper quadrant pain for which an ultrasound was performed. Following ultrasound, he then had a surgical consultation which then led to a HIDA scan which was not consistent with cholecystitis. He, however, had complaints of nausea. Upon my interview with the patient, he states that nausea has been going on for approximately six months and is intermittent and sporadic. There is no aggravating or relieving factors for his nausea. He states he does take antacids at home but is unsure of what the name of the antacid is and how frequently he takes it. He denies any vomiting. He denies any melena or hematochezia. He denies any history of peptic ulcer disease. He denies any chronic NSAID use. He has no known history of gastroparesis. He denies any associated constipation or diarrhea. He does not believe these are secondary to any medicines he may be taking, as he states there have not been any changes to his current medication regimen. He has had no prior upper endoscopy. He does report weight loss, but is unable to quantify. Currently, he is without any abdominal pain. He denies any history of awakening in the middle of the night from sleep from nausea. He cannot relate the nausea to any specific types of foods. PAST MEDICAL HISTORY: Significant for heart failure with an ejection fraction of 50-55%, chronic kidney disease, obesity, coronary artery disease, history of chronic pulmonary embolism, COPD, dyslipidemia, hypothyroidism, depression, hypertension, and lupus anticoagulant. PAST SURGICAL HISTORY: Includes left femur repair, left rotator cuff surgery, left total knee replacement, cardiac catheterization and stenting, and tonsillectomy. FAMILY HISTORY: Significant for cardiovascular disease. SOCIAL HISTORY: Denies any alcohol, tobacco or illicit drug use. CURRENT MEDICATIONS: Include ceftriaxone, Eliquis, citalopram, Lyrica, K-Dur. He also has p.r.n. medicines which include Klonopin, Seroquel, albuterol, nitroglycerin, Maalox, Zofran, and Tylenol. His other regular medications include carvedilol, Lipitor, levothyroxine, Norvasc, and Imdur. ALLERGIES: BACITRACIN, CODEINE, NEOMYCIN, POLYMYXIN, and VANCOMYCIN. REVIEW OF SYSTEMS: His 10 point review of systems is negative except as mentioned in the HPI. PHYSICAL EXAMINATION: His temperature was 37.2, pulse is 55, blood pressure 130/66, respiratory rate is 18, O2 saturation is 93% on room air. Generally, he is an obese gentleman, in no apparent distress. He is oriented to person, place, and time. Answers questions appropriately. HEENT: No pallor. No icterus. Oropharynx is clear. Chest exam: Clear to auscultation bilaterally. Cardiovascular exam: S1 and S2 heard. Abdomen is obese, soft, nontender, nondistended, without hepatosplenomegaly. Extremities with edema. LABORATORY DATA: Shows sodium 143, potassium 3.6, chloride 103, CO2 of 24, BUN of 31, creatinine of 1.85, glucose of 110. His LFTs are normal with the exception of a depressed total protein of 6.1 and albumin of 3.3. His PT is 13.5, INR is 1.26. His TSH and free T4 levels were normal. His BNP on admission was 6463. Imaging tests as described above. In addition, he had a KUB which shows no evidence of bowel obstruction. ASSESSMENT AND PLAN: A 71-year-old gentleman with multiple medical problems, who I have been asked to see for nausea. Would recommend an upper GI small bowel series to further evaluate his nausea. If this should be unremarkable, could consider endoscopy. However, would need to be off his Eliquis for approximately 72 hours before endoscopy could be pursued. With his history of chronic pulmonary embolism, therefore he would likely need bridging therapy with heparin. Would also recommend checking stool for Helicobacter pylori antigen. Would recommend he be on a PPI daily and could increase to twice a day if once a day does not help. Differentials for the nausea includes peptic ulcer disease versus atypical presentation of gastroesophageal reflux versus idiopathic gastroparesis versus medication-related. If there has been no improvement with the addition of PPI and barium studies unremarkable, we could then consider proceeding with upper endoscopy to further evaluate. Thank you for allowing me to participate in this patient's care. If you should have any further questions, please do not hesitate to contact me.
--- NOTE | 2016-11-23 03:31 | NUR ---
VTach Per conveyor technician, patient had 6 beats of VTach. Checked on patient to find patient asymptomatic, production technician had just drawn blood, and denial of CP. Will continue to monitor.
[2016-11-23 03:51] LABS: BASOPHILS % (AUTO) 0.2 % (0-3); EOSINOPHILS % (AUTO) 3.4 % (0-5); MONOCYTES % (AUTO) 15.4 % (4-12); Mean Corpuscular Hemoglobin 30.2 pg (27.0-35.0); Mean Corpuscular Volume 93.9 fL (81-100); NEUTROPHILS % (AUTO) 65.1 % (40-74); Platelet Count 140 bil/L (150-400)
[2016-11-23 05:24] VITALS: PULSE 61
[2016-11-23 06:11] VITALS: BP 150/78; PULSE 64; RESP 16; O2SAT 95
[2016-11-23] MEDS: Isosorbide Mononitrate 60 mg ER24 Tablet PO SCH (08:27)
[2016-11-23] MEDS: cefTRIAXone Inj 2,000 MG in Dextrose 5% Minibag Plus 50 ML IV SCH (08:30)
[2016-11-23 08:40] VITALS: PULSE 64
--- NOTE | 2016-11-23 09:15 | NUR ---
DENISE signed by pt at bedside
[2016-11-23 11:26] VITALS: BP 122/58; PULSE 53; RESP 17; O2SAT 94
--- NOTE | 2016-11-23 12:14 | PCM.DIMED ---
Discharge Instructions Date of Service Nov 23, 2016 Dates of Hospitalization Nov 17, 2016 at 15:55 Diet Discharge Diet: Heart Healthy Call your provider Call your provider for: Fever or Chills, Vomitting Patient Instructions Follow-up with PCP in: 2 weeks (and with your printing bindery assistant in 1-2 weeks) Provider: [facility] Rina Israel MD Nov 23, 2016 12:14
[2016-11-23] MEDS ORDERED: FUR20 PO (12:20)
[2016-11-23] MEDS ORDERED: CEPH-512 PO (12:20)
[2016-11-23] MEDS ORDERED: POTA8CAP10 PO (12:20)
--- NOTE | 2016-11-23 12:37 | PCM.DC.MED ---
Discharge Summary Date of Service Nov 23, 2016 Dates of Hospitalization Date of Hospital Admission Nov 17, 2016 at 15:55 Date of Discharge: Nov 23, 2016 Providers: Admitting Physician: Danielle Bundy DO Primary Care Physician: Valeri Zhou DO Attending Physician: Danielle Bundy DO Diagnosis at Time of Discharge Diagnosis at Time of Discharge Altered Mental Status, prob multifactorial Acute on Chronic systolic CHF UTI Consultations Nephrology Gastroenterology Procedures XRay, CTs & MRIs PROCEDURE: X-RAY KUB ([id number]) INDICATIONS: nausea TECHNIQUE: One view of the abdomen acquired. COMPARISON: None. FINDINGS: Surgical changes and devices: None. Bowel: Bowel gas pattern is normal. Soft tissues: No suspicious abdominal calcifications. Visualized solid organ contours appear normal in size. Nonspecific pelvic and vascular calcifications Bones: No suspicious bony lesions. Bilateral hip joint degeneration and discogenic changes IMPRESSION: No evidence of bowel obstruction. Dictated by: Jose Eduardo Quintanilla M.D. on 11/21/2016 at 21:31 Approved by: Jose Eduardo Quintanilla M.D. on 11/21/2016 at 21:33 Cardiac Echo Impression Interpretation Summary The left ventricle is mildly dilated which has slightly increased in size since prior study. Left ventricular systolic function is normal without focal wall motion abnormalities. The ejection fraction is estimated to be 55-60%. LVEF has not changed significantly since prior study. The right ventricle is mildly dilated. Right ventricular systolic function is at the lower limits of normal. The right ventricular systolic pressure is estimated at 41 mmHg assuming a right atrial pressure of 3 mm Hg. Compared to the prior echo exam, there has been no change in the severity of pulmonary hypertension. The left atrium is moderately dilated. The right atrium is mildly dilated. There is trace mitral regurgitation. Compared to the prior echo study, there has been a decrease in the severity of mitral regurgitation. There is mild to moderate aortic stenosis. The calculated aortic valve area is 1.6 cm2. The peak aortic velocity is 2.5 m/sec. The peak aortic velocity on the previous exam was 2.2 m/sec. There has been no significant change since the previous study. There is mild aortic regurgitation. Compared to the prior echo study, there has been no change in the severity of aortic regurgitation. There is no other significant valvular heart disease. The ascending aorta is mildly enlarged. Reading Physician:DAVID Echocardiogram Report Name: DOLORES ROCK LStudy [place] e: 08/26/2016 Height: 70 in Hospital Exam Location: [facility] Weight: 303 lb Gender: Male BSA: 2.5 m2 : 1945 Age: 71 yrs BP: 184/93 mmHg Reason For Study: SOB Ordering Physician: Performed By: [facility] Interpretation Summary The left ventricle is normal in size. Left ventricular systolic function is borderline reduced. The ejection fraction is estimated to be 50-55%. There has been no significant change since the previous study. There are no focal wall motion abnormalities. Assessment of diastolic parameters suggests a pseudonormalization pattern, consistent with elevated filling pressures. The right ventricle is mildly dilated. Right ventricular systolic function is mildly reduced. The right ventricular systolic pressure is estimated at at least 43 mmHg assuming a right atrial pressure of 3 mm Hg. The left atrium is moderately dilated. Right atrial size is normal. There is moderate mitral regurgitation. There is mild to moderate aortic stenosis. There has been no significant change since the previous study. The peak aortic velocity is 2.24 m/sec. The peak aortic velocity on the previous exam was 2.0 m/sec. The aortic valve area is 1.4 centimeters squared by planimetry. There is mild aortic regurgitation. This is unchanged compared to the previous study. There is no other significant valvular heart disease. The ascending aorta is mildly enlarged. : 0.11 sec Reading Physician:PM Brief History This is a 71-year-old white male with past medical history of systolic congestive heart failure, pulmonary embolisms for which he is on Coumadin, COPD , hyperlipidemia, heart disease status post MD, stent placement, spinal stenosis , peripheral neuropathy, GERD, dementia, depression is presenting today due to altered mental mentation and dyspnea. Vital is present in the room and provided most of the history she states that patient has been very somnolent for the last 3 days. She mentions to me that there has been some adjustments in his heart medications he has been to see his regulatory administrator Dr. Silveira and her PA. He has seen them 2 times since his last admission at the hospital in August. He was asked to take Lasix every other day per . He states that he has been forgetting a lot, falling asleep a lot while using his computer. Patient himself states that he is feeling more demented. He apparently has a mild droop to the left in the ER and also slurred speech. says that these symptoms have been ongoing for 3-4 days. Patient is alert when asked questions and then woken up but otherwise falling asleep fairly quickly. He denies recent infections fevers, chills, diarrhea, constipation, urinary symptoms he does endorse chronic orthopnea, dizziness, cough, speech fatigue, memory problems, weakness, chronic fecal incontinence, cold sensation. He feels that his leg edema is worse than his baseline. In the ER chest x-ray showed mild cardiomegaly, chronic right hemidiaphragm elevation without any acute findings, EKG showed premature atrial complex without tachycardia, creatinine was 1.35 at his baseline, CT showed no concern for subacute stroke or bleeding. His he was such saturating fully on 1 L of oxygen which is a new requirement for him and NIHSS stroke scale is 2 (due to speech and droop on face) . Troponin was neg in the ED, BNP elevated >6000. Hospital Course #Nausea: Patient and c/o of this, resolved on 11/22 -- Consulted GI for an eGD. They do not feel this needs to be done emergently. Also need to take into account patient's risk of stopping anticoagulation. -- They recommend a barium swallow but the study is not possible over the weekend and could be done as outpatient if needed -- Continued on Protonix IV 40 mg BIDAC as it seemed to help nausea which has resolved -- Nephrology later switched IV Protonix back to his H2 jeannette since this medication to may cause kidney injury #Fever on 11/20/16 evening: Still do not know the etiology, could be from ecoli < [id number] CFU of UA cx result on 11/22 -- UA cx neg, CXR 11/21 neg, RESP PNL neg. -- Blood cx x 2 are still not growing any organisms. -- Switched him to ceftriaxone as Nephro is concerned about urine eosinophilia -- Urine culture with <50,000 Ecoli sens to all -- Will give an additional week of Keflex as outpt Elevated Bilirubin: Could be reactive, resolved on 11/22 -- Direct bilirubin levels high 11/21 # Acute on chronic renal failure: Likely pre-renal from over diuresis and dehydration, his Cr is not moving at 1.85 -- All lasix then held -- Continue to follow renal function. -- UA is ordered: cx grew E Coli -- Renal ultrasound: wnl, phosphorus levels wnl, mag levels wnl, urine eosinophils are positive but non-specific -- Nephrology consulted the day prior to discharge: The patient initially received IV diuretics and that led to rising of serum creatinine to 2.06. The medication was stopped. His current serum creatinine is 1.85 which is relatively stable. Of note, his serum creatinine has ranged between 1.6-1.8. The patient appears to be euvolemic. I would continue to hold diuretics, hold normal saline infusion. Just to wait for his body to re-equilibrate. -- on day of discharge creatinine 1.65 and Nephrology felt his was appropriate for discharge, recommending Lasix 20 mg daily as an outpt -- K 3.4 on day of discharge so will increase home replacement # AMS likely due to acute on chronic systolic HF vs pain/anxiety meds vs stroke , POA resolved -- Trend cardiac enzymes to r/o ACS: ACS was ruled out -- CHF management as below -- MRI stroke protocol to r/o acute/sub acute stroke: ruled out, only showed chronic changes -- 11/18: Restarted quetiapine at 25 mg hs, pregabalin 50 mg TID. clonazepam 0.25 mg PO HS PRN and citalopram 40 mg QHS -- much improved on 11/19. agrees he is back to baseline -- Ordered Thyroid labs TSH, T4: WNL, AMS not likely due to thyroid dysfunction # Congestive heart failure acute exacerbation systolic heart failure:POA Resolved -- Was treated with IV and PO lasix, then held due to worsening renal function -- Nitroglycerin when necessary -- Morphine 1-2 mg for dyspnea when necessary -- Daily weights, accurate I&O -- Tele monitoring -- 11/19 US Echo: LVEF has not changed significantly since prior study. -- # Chronic history of PE, active -- Warfarin pharmacy consult -- INr is ordered>10: 2 units of FFM, 5 mg PO vitK were given on 11/17 -- Coumadin was stopped and patient is started on Eliquis 2.5 mg (renally dosed) -- Reason for change to Eliquis not clear and patient adament he wants to be back on Warfarin at discharge # hematoma on R arm: due to supratherapeutic INR, at the IV site -- k pads -- US R Ext is ordered: No hematoma -- Improving # strokelike symptoms/neurological deficits: Based on his 's prescription symptoms ongoing for 3-4 days, POA -- Followed by MRA of brain stroke protocol is ordered: negative for acute stroke # COPD, chronic -- ABG are ordered due to somnolence, neg for hypercapnia # CAD, chronic -- Continue home meds # hyperlipidemia, chronic -- Continue home meds # Sleep apnea, chronic -- Patient will need outpatient evaluation # chronic pain, chronic -- We will hold all home pain meds -- He is not even asking... depression, chronic -- home meds restarted #Acute Cholecystitis: Ruled out -- Patient no longer has RUQ pain though he continues to ahve nausea. -- US GB showed sludge and thickened gal bladder but no stones -- HIDA scan is incomplete but shows no evidence of dyskinesia. -- Reported fever later in the day 11/20 -- Blood cx were drawn and patient was started on Unasyn 3 g every 8 -- Dr. Eagle from surgery has seen the pt and signed off as he does not believe pt will need cholecystectomy Exam Vital Signs (Last) Date Time Temp Pulse Resp B/P Pulse Ox O2 Delivery O2 Flow Rate FiO2 11/23/16 11:26 36.7 53 17 122/58 94 Room Air 11/22/16 05:05 1.00 Exam General: Alert and oriented, no acute distress Heart: Regular Lungs: Clear Abdomen: Soft, non-tender Extremities: No pedal edema Test 11/17/16 12:55 11/17/16 13:12 11/17/16 15:30 11/18/16 01:00 Acetaminophen Level < 15.0ug/mL Rx (10-25) Lactic Acid Level 0.6mmol/L (0.4-2.0) Urinalysis Comment None Total Creatine Kinase 60U/L (21-232) Creatine Kinase MB 1.3ng/mL (0.0-10.4) Creatine Kinase MB % % (0.0-5.0) Troponin T < 0.010ug/L (0.0-0.011) Test 11/18/16 05:20 11/20/16 05:07 11/20/16 20:15 11/20/16 22:15 Thyroid Stimulating Hormone (TSH) 0.580uIU/mL (0.450-4.500) Free Thyroxine 1.43ng/dL (0.82-1.77) Prothrombin Time 13.5sec (8.1-12.5) Prothromb Time International Ratio 1.26ratio Hemoglobin A1c 5.3% (4.8-5.6) Uric Acid 8.3mg/dL (2.6-7.2) Phosphorus Level 3.6mg/dL (2.5-4.9) Magnesium Level 1.6mg/dL (1.6-2.6) Gamma Glutamyl Transpeptidase 98IU/L (0-65) Lipase 24U/L (13-60) Urine Color Dark yellow (YELLOW) Urine Appearance Hazy (CLEAR,HAZY) Urine pH 6.0 (5.0-8.0) Urine Specific Channing 1.015 (1.003-1.035) Urine Protein 100mg/dL (NEG,TRACE) Urine Glucose (UA) Negativemg/dL (NEGATIVE) Urine Ketones Negativemg/dL (NEGATIVE) Urine Occult Blood Large (NEGATIVE) Urine Nitrite Positive (NEGATIVE) Urine Bilirubin Small (NEGATIVE) Urine Ictotest Positive (Negative) Urine Urobilinogen Normalmg/dL (NORMAL) Urine Leukocyte Esterase Small (NEGATIVE) Urine RBC 3-10/hpf (0-2) Urine WBC >50/hpf (0-5) Urine Epithelial Cells Few/hpf (NONE-MOD) Urine Crystals None seen (NONE SEEN) Urine Bacteria Many/hpf (NONE-FEW) Urine Hyaline Casts None/lpf (NONE) Urine Granular Casts None seen (NONE SEEN) Urine Waxy Casts None seen (NONE SEEN) Urine Red Blood Cell Casts None seen (NONE SEEN) Urine White Blood Cell Casts None seen (NONE SEEN) Urine Mucus None seen (None Seen) Urine Trichomonas None seen (NONE SEEN) Urine Yeast None (NONE SEEN) Urine Culture Reflexed Indicated Test 11/21/16 07:25 11/21/16 14:47 11/21/16 20:00 11/21/16 22:55 Procalcitonin 0.09ng/mL (0.00-0.08) Urine Random Creatinine 205mg/dL (22-328) Urine Urea Nitrogen 856mg/dL (Not Estab.) Urine Legionella pneumophilia Ag Negative (Negative) Direct Bilirubin 0.6mg/dL (0.0-0.3) Test 11/22/16 05:30 11/22/16 14:58 11/23/16 03:25 Total Bilirubin 1.2mg/dL (0.0-1.2) Aspartate Amino Transf (AST/SGOT) 19U/L (0-50) Alanine Aminotransferase (ALT/SGPT) 18U/L (0-44) Alkaline Phosphatase 89U/L (25-160) Total Protein 6.1g/dL (6.4-8.4) Albumin 3.3g/dL (3.4-5.0) Erythrocyte Sedimentation Rate 69mm/hr (0-30) White Blood Count 9.2th/mm3 (3.8-10.1) Red Blood Count 3.78mil/mm3 (4.40-5.80) Hemoglobin 11.4g/dL (13.8-17.2) Hematocrit 35.5% (41.0-50.0) Mean Corpuscular Volume 93.9fL (81-100) Mean Corpuscular Hemoglobin 30.2pg (27.0-35.0) Mean Corpuscular Hemoglobin Concent 32.1% (32.0-37.0) Red Cell Distribution Width 13.7% (12.3-15.4) Platelet Count 140bil/L (150-400) Neutrophils (%) (Auto) 65.1% (40-74) Lymphocytes (%) (Auto) 15.8% (14-46) Monocytes (%) (Auto) 15.4% (4-12) Eosinophils (%) (Auto) 3.4% (0-5) Basophils (%) (Auto) 0.2% (0-3) Sodium Level 140mEq/L (134-144) Potassium Level 3.4mEq/L (3.5-5.2) Chloride Level 101mEq/L (97-108) Carbon Dioxide Level 22mmol/L (18-29) Blood Urea Nitrogen 29mg/dL (8-27) Creatinine 1.65mg/dL (0.76-1.27) Estimat Glomerular Filtration Rate 44mL/min (>59) Glucose Level 97mg/dL (60-99) Calcium Level 9.0mg/dL (8.5-10.1) Pro-B-Type Natriuretic Peptide 1760pg/mL (0-376) Discharge Medications Discharge Medications Amlodipine (Amlodipine) 10 Mg Tablet 10 MG PO DAILY (Reported) Carvedilol (Carvedilol) 12.5 Mg Tablet 12.5 MG PO BID (Reported) Cephalexin (Keflex) 500 Mg Capsule 500 MG PO QID Prescribed by: GOLDEN LEWIS MD Citalopram Hydrobromide (Celexa) 40 Mg Tablet 40 MG PO HS (Reported) Furosemide (Furosemide) 20 Mg Tab 20 MG PO DAILY Prescribed by: GOLDEN LEWIS MD Isosorbide MN ER (Isosorbide MN ER) 60 Mg Tab.er.24h 60 MG PO DAILY (Reported) Levothyroxine (Levothyroxine) 50 Mcg Tablet 50 MCG PO DAILY (Reported) Methocarbamol (Methocarbamol) 500 Mg Tablet 500 MG PO HS (Reported) Potassium Chloride (Potassium Chloride) 8 Meq Capsule.er 8 MEQ PO BID TAKE WITH FOOD Prescribed by: GOLDEN LEWIS MD Pregabalin (Lyrica) 100 Mg Capsule 100 MG PO BID (Reported) Quetiapine Fumarate (Quetiapine Fumarate) 50 Mg Tablet 50 MG PO HS (Reported) Ranitidine (Ranitidine) 150 Mg Capsule 150 MG PO BID (Reported) Simvastatin (Simvastatin) 20 Mg Tablet 20 MG PO HS (Reported) Warfarin Sodium (Warfarin Sodium) 5 Mg Tablet 5 MG PO ,,,Fr,Sa,Warner ( Reported) Warfarin Sodium (Warfarin Sodium) 5 Mg Tablet 7.5 MG PO every thursday (Reported) As needed Albuterol Sulfate (Ventolin HFA Inhaler) 200 Puff/18 Gm Inhaler 2 PUFF INH q4-6 hours PRN PRN For Shortness of Breath (Reported) Clonazepam (Clonazepam) 0.5 Mg Tablet 0.5 MG PO HS PRN PRN For Sleep (Reported) Lidocaine HCl (Lidocaine) 142 Appl/37.5 Gm Oint 1 APPLIC TOP DAILY PRN PRN For Pain (Reported) Nitroglycerin SL (Nitroglycerin SL) 0.4 Mg Tab.subl 0.4 MG SL Q5MIN PRN PRN For Chest Pain (Reported) Followup Plan Discharge Diet: Heart Healthy Follow-up with PCP in: 2 weeks (and with your slunk skinner in 1-2 weeks) Provider: ADAM NAIK Peggy E MD Nov 23, 2016 12:37 Chest Pain (Reported) Followup Plan Discharge Diet: Heart Healthy Follow-up with PCP in: 2 weeks (and with your slunk skinner in 1-2 weeks) Provider: ADAM NAIK Peggy E MD Nov 23, 2016 12:37
--- NOTE | 2016-11-23 13:16 | NUR ---
Social Work: Discharge D: EMR reviewed. Pt is on day 6 of hospitalization. Per MD, pt is medically stable for discharge. Pt's spouse to provide transport home via POV when pt is medically stable. SW will continue to follow. A: Pt who is independent at baseline. P: Pt's spouse to provide transport home via POV today. does not believe home health is medically necessary for pt as of 11/22. SW will continue to follow. SINDY Hutchison
--- NOTE | 2016-11-23 13:16 | PCM.PNNEPH ---
Subjective Date of Service Nov 23, 2016 Subjective Patient is feeling fine today, no N/V/CP/SOB. Serum cr 1.65, K 3.4. He would like to go home. Exam Vital Signs Vital Sign - Last Date Time Temp Pulse Resp B/P Pulse Ox O2 Delivery O2 Flow Rate FiO2 11/23/16 11:26 36.7 53 17 122/58 94 Room Air 11/22/16 05:05 1.00 Intake and Output 11/22/16 11/22/16 11/23/16 Cumulative From/Thru 15:00 23:00 07:00 11/17/16 12:36 - 11/23/16 06:11 Intake Total 500 ml 1912 ml 450 ml 9372 ml Output Total 500 ml 200 ml 750 ml 63315 ml Balance 0 ml 1712 ml -300 ml -1213 ml Intake Oral 500 ml 1160 ml 450 ml 6150 ml IV Total 752 ml 2833 ml Packed Cells 200 ml FFP 189 ml Output Urine Total 500 ml 200 ml 750 ml 07145 ml # Voids 2 7 # Bowel Movements 0 0 0 1 Exam General appearance: Awake, alert, oriented x3. No acute distress. Obese. HEENT: No pallor. No jaundice, no JVD. No lymphadenopathy. No thyroid enlargement. Heart: Regular rhythm. Normal S1, S2. Distant heart sounds. No murmurs, rubs, or gallops. Lungs: Decreased breath sounds at bases. No wheezing. No rhonchi. Abdomen: Soft, active bowel sounds. Nontender. Nondistended. No hepatosplenomegaly. Extremities: Trace edema on the left lower extremity. Surgical scar on the left knee. Dry, clean and intact. Lab and Diagnostics Result Diagram: 11/23/16 0325 11/23/16 0325 X-Rays, CTs and MRIs PROCEDURE: X-RAY KUB ([id number]) INDICATIONS: nausea TECHNIQUE: One view of the abdomen acquired. COMPARISON: None. FINDINGS: Surgical changes and devices: None. Bowel: Bowel gas pattern is normal. Soft tissues: No suspicious abdominal calcifications. Visualized solid organ contours appear normal in size. Nonspecific pelvic and vascular calcifications Bones: No suspicious bony lesions. Bilateral hip joint degeneration and discogenic changes IMPRESSION: No evidence of bowel obstruction. Dictated by: Jose Eduardo Quintanilla M.D. on 11/21/2016 at 21:31 Approved by: Jose Eduardo Quintanilla M.D. on 11/21/2016 at 21:33 Cardiac Echo Impressions Interpretation Summary The left ventricle is mildly dilated which has slightly increased in size since prior study. Left ventricular systolic function is normal without focal wall motion abnormalities. The ejection fraction is estimated to be 55-60%. LVEF has not changed significantly since prior study. The right ventricle is mildly dilated. Right ventricular systolic function is at the lower limits of normal. The right ventricular systolic pressure is estimated at 41 mmHg assuming a right atrial pressure of 3 mm Hg. Compared to the prior echo exam, there has been no change in the severity of pulmonary hypertension. The left atrium is moderately dilated. The right atrium is mildly dilated. There is trace mitral regurgitation. Compared to the prior echo study, there has been a decrease in the severity of mitral regurgitation. There is mild to moderate aortic stenosis. The calculated aortic valve area is 1.6 cm2. The peak aortic velocity is 2.5 m/sec. The peak aortic velocity on the previous exam was 2.2 m/sec. There has been no significant change since the previous study. There is mild aortic regurgitation. Compared to the prior echo study, there has been no change in the severity of aortic regurgitation. There is no other significant valvular heart disease. The ascending aorta is mildly enlarged. Reading Physician:DAVID Echocardiogram Report Name: DOLORES ROCK LStudy [place] e: 08/26/2016 Height: 70 in Hospital Exam Location: [facility] Weight: 303 lb Gender: Male BSA: 2.5 m2 : 1945 Age: 71 yrs BP: 184/93 mmHg Reason For Study: SOB Ordering Physician: Performed By: Se[facility] Interpretation Summary The left ventricle is normal in size. Left ventricular systolic function is borderline reduced. The ejection fraction is estimated to be 50-55%. There has been no significant change since the previous study. There are no focal wall motion abnormalities. Assessment of diastolic parameters suggests a pseudonormalization pattern, consistent with elevated filling pressures. The right ventricle is mildly dilated. Right ventricular systolic function is mildly reduced. The right ventricular systolic pressure is estimated at at least 43 mmHg assuming a right atrial pressure of 3 mm Hg. The left atrium is moderately dilated. Right atrial size is normal. There is moderate mitral regurgitation. There is mild to moderate aortic stenosis. There has been no significant change since the previous study. The peak aortic velocity is 2.24 m/sec. The peak aortic velocity on the previous exam was 2.0 m/sec. The aortic valve area is 1.4 centimeters squared by planimetry. There is mild aortic regurgitation. This is unchanged compared to the previous study. There is no other significant valvular heart disease. The ascending aorta is mildly enlarged. : 0.11 sec Reading Physician:PM Plan Impression ASSESSMENT: 1. Acute kidney injury on chronic kidney disease. 2. History of hypertension, relatively stable. 3. Nausea, unclear etiology. However, resolved. 4. Acute CHF exacerbation, improved. 5. Chronic pulmonary embolism. 6. COPD. 7. Coronary artery disease. 8. Positive urine eosinophils. Plan: Resume lasix 20 mg daily when he is released home. F/u with his primary scissors grinder in 1-2 weeks. Daily weight, may require more or less diuretic depending upon the weight change. Avoid high salt diet. Avoid NSAIDs. Rajeev Bahena MD Nov 23, 2016 13:16
[2016-11-23 13:49] LABS: APPEARANCE,URINE CLEAR (CLEAR,HAZY); COLOR,URINE DARK YELLOW (YELLOW); OCCULT BLOOD,URINE MODERATE (NEGATIVE); UROBILINOGEN,URINE NORMAL (NORMAL)
[2016-11-23 15:49] VITALS: BP 129/62; PULSE 62; RESP 16; O2SAT 93
--- NOTE | 2016-11-23 16:44 | NUR ---
DC DC instructions reviewed with pt and at bedside. Pt states that he understands all medications and instructions. Prescription in hand. Denies CP, SOB, Nausea at this time. Eating 25% at least of meals. Post Void Residual revealed <400mls. RA. All belongings with pt. Care discontinues
--- NOTE | 2016-11-23 18:24 | PCM.PNMED ---
Subjective Date of Service Nov 23, 2016 Subjective Patient was seen before discharge He states his nausea has resolved and he has been able to tolerate a regular breakfast He denies any abdominal pain, vomiting, constipation or diarrhea Exam Vital Signs Vital Sign - Last Date Time Temp Pulse Resp B/P Pulse Ox O2 Delivery O2 Flow Rate FiO2 11/23/16 15:49 36.8 62 16 129/62 93 Room Air 11/22/16 05:05 1.00 Intake and Output 11/22/16 11/22/16 11/23/16 Cumulative From/Thru 15:00 23:00 07:00 11/17/16 12:36 - 11/23/16 06:11 Intake Total 500 ml 1912 ml 450 ml 9372 ml Output Total 500 ml 200 ml 750 ml 79445 ml Balance 0 ml 1712 ml -300 ml -1213 ml Intake Oral 500 ml 1160 ml 450 ml 6150 ml IV Total 752 ml 2833 ml Packed Cells 200 ml FFP 189 ml Output Urine Total 500 ml 200 ml 750 ml 61177 ml # Voids 2 7 # Bowel Movements 0 0 0 1 Exam Generally he is in no apparent distress and is oriented person place and time Respiratory exam clear to auscultation bilaterally Cardiovascular exam- S1 and S2 heard Abdominal exam- benign Lab and Diagnostics Result Diagram: 11/23/16 0325 11/23/16 0325 X-Rays, CTs and MRIs PROCEDURE: X-RAY KUB ([id number]) INDICATIONS: nausea TECHNIQUE: One view of the abdomen acquired. COMPARISON: None. FINDINGS: Surgical changes and devices: None. Bowel: Bowel gas pattern is normal. Soft tissues: No suspicious abdominal calcifications. Visualized solid organ contours appear normal in size. Nonspecific pelvic and vascular calcifications Bones: No suspicious bony lesions. Bilateral hip joint degeneration and discogenic changes IMPRESSION: No evidence of bowel obstruction. Dictated by: Jose Eduardo Quintanilla M.D. on 11/21/2016 at 21:31 Approved by: Jose Eduardo Quintanilla M.D. on 11/21/2016 at 21:33 Cardiac Echo Impressions Interpretation Summary The left ventricle is mildly dilated which has slightly increased in size since prior study. Left ventricular systolic function is normal without focal wall motion abnormalities. The ejection fraction is estimated to be 55-60%. LVEF has not changed significantly since prior study. The right ventricle is mildly dilated. Right ventricular systolic function is at the lower limits of normal. The right ventricular systolic pressure is estimated at 41 mmHg assuming a right atrial pressure of 3 mm Hg. Compared to the prior echo exam, there has been no change in the severity of pulmonary hypertension. The left atrium is moderately dilated. The right atrium is mildly dilated. There is trace mitral regurgitation. Compared to the prior echo study, there has been a decrease in the severity of mitral regurgitation. There is mild to moderate aortic stenosis. The calculated aortic valve area is 1.6 cm2. The peak aortic velocity is 2.5 m/sec. The peak aortic velocity on the previous exam was 2.2 m/sec. There has been no significant change since the previous study. There is mild aortic regurgitation. Compared to the prior echo study, there has been no change in the severity of aortic regurgitation. There is no other significant valvular heart disease. The ascending aorta is mildly enlarged. Reading Physician:DAVID Echocardiogram Report Name: DOLORES ROCK LStudy [place] e: 08/26/2016 Height: 70 in Hospital Exam Location: [facility] Weight: 303 lb Gender: Male BSA: 2.5 m2 : 1945 Age: 71 yrs BP: 184/93 mmHg Reason For Study: SOB Ordering Physician: Performed By: [facility] Interpretation Summary The left ventricle is normal in size. Left ventricular systolic function is borderline reduced. The ejection fraction is estimated to be 50-55%. There has been no significant change since the previous study. There are no focal wall motion abnormalities. Assessment of diastolic parameters suggests a pseudonormalization pattern, consistent with elevated filling pressures. The right ventricle is mildly dilated. Right ventricular systolic function is mildly reduced. The right ventricular systolic pressure is estimated at at least 43 mmHg assuming a right atrial pressure of 3 mm Hg. The left atrium is moderately dilated. Right atrial size is normal. There is moderate mitral regurgitation. There is mild to moderate aortic stenosis. There has been no significant change since the previous study. The peak aortic velocity is 2.24 m/sec. The peak aortic velocity on the previous exam was 2.0 m/sec. The aortic valve area is 1.4 centimeters squared by planimetry. There is mild aortic regurgitation. This is unchanged compared to the previous study. There is no other significant valvular heart disease. The ascending aorta is mildly enlarged. : 0.11 sec Reading Physician:PM Assessment & Plan Nausea -Resolved -I suspect that this may be an atypical presentation of gastroesophageal reflux -Recommended reflux precautions, would have him on scheduled antacid daily PPI versus H2 jeannette if he is however going to be on H2 jeannette would recommend twice a day dosing. -Follow-up in GI clinic clinic as needed if nausea should return. GI Prophylaxis: H2 jeannette VTE Prophylaxis: Other (Eliquis) VTE Mechanical Devices: Intermittant Pneumatic CD Resuscitation Status: CPR: Attempt Resuscitation (he does not want to be intubated or ventilated, is his alternate decision maker) Don Hernandez MD Nov 23, 2016 18:24
== END 2016-11-23 16:00 | disposition home or self-care (01) | DRG 291 ==
LOC: SED 12:36 → OSC 15:55
PROVIDERS: ADMIT Family Medicine; ATTEND Family Medicine
PROC: 4A033R1 Measurement of Arterial Saturation, Peripheral, Percutaneous Approach (ICD-10-PCS; principal; 2016-11-17)
DX: I13.0 Hypertensive heart and chronic kidney disease with heart failure and stage 1 through stage 4 chronic kidney disease, or unspecified chronic kidney disease (principal); I50.23 Acute on chronic systolic (congestive) heart failure; N17.9 Acute kidney failure, unspecified; N39.0 Urinary tract infection, site not specified; N18.9 Chronic kidney disease, unspecified; Z86.711 Personal history of pulmonary embolism; Z79.01 Long term (current) use of anticoagulants; M79.81 Nontraumatic hematoma of soft tissue; T45.515A Adverse effect of anticoagulants, initial encounter; E87.6 Hypokalemia; G89.29 Other chronic pain